=== PATIENT | female | born 1985 | race Caucasian/White ===

== ENCOUNTER 2021-10-01 14:27 | Outpatient (CLI) | payer OTHER, SELFPAY ==
[2021-10-04 12:47] LABS: Rapid Plasma Reagin (RPR) Non Reactive (Non Reactive)
== END 2021-10-01 14:28 | disposition home or self-care (01) ==
LOC: NFLDREF 14:33
PROVIDERS: Obstetrics & Gynecology; Visit Provider Obstetrics & Gynecology
DX: Z34.93 Encounter for supervision of normal pregnancy, unspecified, third trimester (principal); Z3A.28 28 weeks gestation of pregnancy
CPT/HCPCS: 86592

== ENCOUNTER 2021-10-08 08:07 | Outpatient (CLI) | payer OTHER, SELFPAY ==
[2021-10-08 08:23] LABS: Glucose Fasting Check 86 mg/dl (60-115)
[2021-10-08 12:59] LABS: Glucose GTT-Gestational 3 Hr 108 mg/dl (70-140)
[2021-10-08 12:59] LABS: Glucose 1 Hour Gest 152 mg/dl (70-180)
== END 2021-10-08 08:08 | disposition home or self-care (01) ==
LOC: NFLDREF 08:08
PROVIDERS: Visit Provider Obstetrics & Gynecology
DX: O09.523 Supervision of elderly multigravida, third trimester (principal); R73.09 Other abnormal glucose; Z3A.29 29 weeks gestation of pregnancy
CPT/HCPCS: 82951; 82952

== ENCOUNTER 2021-10-29 09:27 | Outpatient (CLI) | payer OTHER, SELFPAY ==
--- NOTE | 2021-10-29 09:45 | CRLHL7_ITS ---
For Patients: As a result of the Century Cures Act, medical imaging exams and procedure reports are released immediately into your electronic medical record. You may view this report before your referring provider. If you have questions, please contact your health care provider. INDICATION: Third trimester scan, evaluate growth. COMPARISON: 05/12/2021, 09/04/2021 TECHNIQUE: Real time borjas scale imaging of the fetus was performed. FINDINGS: Sonographic imaging demonstrates a single living intrauterine gestation. Fetus demonstrates a regular cardiac rate of 150 beats per minute. Fetus has a vertex position. The placenta lies anterior fundal. Amniotic fluid volume appears normal and there is a single deepest vertical pocket: 6.2 cm. The estimated weight is 1838gm which lies at the 41st %. On the prior OB ultrasound exam dated 09/04/2021 the estimated weight was at the 96th%. BPD 96th percentile. HC 96th percentile. AC 27th percentile. FL 27th percentile. The HC/AC ratio measures 1.17 range (0.96-1.11). IMPRESSION: Sonographic gestational age 33 weeks 0 days and sonographic due date 12/27/2021. Sonographic age 9 days ahead of the clinical age. Estimated weight 41st percentile. Abdominal circumference 27th percentile. BPD/HC both 96th percentile. Dictated by Conrad Black MD @ 10/29/2021 12:03:50 PM (Electronically Signed)
== END 2021-10-29 09:28 | disposition home or self-care (01) ==
LOC: US 09:28
PROVIDERS: Visit Provider Obstetrics & Gynecology
DX: Z34.93 Encounter for supervision of normal pregnancy, unspecified, third trimester (principal); Z3A.33 33 weeks gestation of pregnancy
CPT/HCPCS: 76816

== ENCOUNTER 2021-11-26 09:20 | Outpatient (CLI) | payer OTHER, SELFPAY ==
--- NOTE | 2021-11-26 09:15 | CRLHL7_ITS ---
For Patients: As a result of the Century Cures Act, medical imaging exams and procedure reports are released immediately into your electronic medical record. You may view this report before your referring provider. If you have questions, please contact your health care provider. INDICATION: Third trimester scan, evaluate growth. COMPARISON: 10/29/2021 TECHNIQUE: Real time borjas scale imaging of the fetus was performed. FINDINGS: Sonographic imaging demonstrates a single living intrauterine gestation. Fetus demonstrates a regular cardiac rate of 139 beats per minute. Fetus has a vertex position. The placenta lies anterior. Amniotic fluid volume appears normal and there is a single deepest vertical pocket: 6.3 cm. The estimated weight is 3204gm which lies at the 90th %. On the prior OB ultrasound exam dated 10/29/2021 the estimated weight was at the 41st%. BPD greater than 97th percentile. HC 96th percentile. AC 97th percentile. FL 29th percentile. The HC/AC ratio measures 1.01 range (0.90-1.05). IMPRESSION: Sonographic gestational age 37 weeks 5 days and sonographic due date 12/12/2021. Sonographic age 2 weeks ahead of the clinical age. Estimated weight 90th percentile. Abdominal circumference 97th percentile. Dictated by Conrad Black MD @ 11/26/2021 12:40:57 PM (Electronically Signed)
== END 2021-11-26 09:21 | disposition home or self-care (01) ==
LOC: US 09:20
PROVIDERS: Visit Provider Obstetrics & Gynecology
DX: Z34.93 Encounter for supervision of normal pregnancy, unspecified, third trimester (principal); Z3A.37 37 weeks gestation of pregnancy
CPT/HCPCS: 76816; 87081; 87653

== ENCOUNTER 2022-01-01 06:10 | Inpatient (IN) | payer OTHER, SELFPAY ==
[2022-01-01] VITALS (45 sets, daily range): BP systolic 97–144; BP diastolic 50–90; PULSE 58–115; RESP 16–20; TEMP 36.4–37.2; O2SAT 96–98; BMI 32.5
[2022-01-01] MEDS: LACTATED RINGERS 1000 ML 1,000 ML 500 ML IV (07:23)
[2022-01-01 07:57] LABS: Basophils Absolute Auto 0.01 K/uL (0.00-0.30); Basophils Percent Auto 0.1 % (0.0-3.0); Eosinophils Absolute Auto 0.05 K/uL (0.00-0.50); Eosinophils Percent Auto 0.6 % (0.0-7.0); Hematocrit 32.6 % (33.0-51.0); Hemoglobin* 11.2 gm/dL (12.0-16.0); Immature Granulocytes Abs Auto 0.04 K/uL (0.00-0.30); Lymphocytes Absolute Auto 1.94 K/uL (0.90-2.90); Lymphocytes Percent Auto 24.5 % (20-44); Mean Corpuscular HGB Conc 34 gm/dL (32-36); Mean Corpuscular Hemoglobin 30 pg (26-34); Mean Corpuscular Volume 89 fL (80-100); Monocytes Percent Auto 5.8 % (0.0-11.0); Neutrophils Absolute Auto 5.42 K/uL (1.7-7.0); Neutrophils Percent Auto 68.5 % (42.0-72.0); Platelet Count* 166 K/uL (140-440); RDW Coefficient of Variation % 13.4 % (11.5-15.5); Red Blood Count 3.68 m/uL (4.00-5.20); White Blood Count* 7.92 K/uL (4.50-11.00)
[2022-01-01 08:01] LABS: SARS PCR* Negative SARS-CoV-2 (Negative)
[2022-01-01 08:07] LABS: Slide Review Reflex No
[2022-01-01] MEDS: OXYTOCIN 30 unit/500 ML in NS 30 UNIT/500 ML BAG IVPB (08:54)
[2022-01-01] MEDS: ACETAMINOPHEN 500 MG TABLET 1000 MG PO ×2 (11:38→18:51)
[2022-01-01] MEDS: LACTATED RINGERS 1000 ML 1,000 ML 125 ML IV ×2 (11:51→13:43)
--- NOTE | 2022-01-01 13:10 | PM.OBHPLI ---
OB - H&P: HPI Labor/Induction History of Present Illness Time Seen by Provider: 08:00 Date Seen: 01/01/22 Chief complaint: Maternity Narrative: Ute Rand is a 36 year old female who presents to the center to to labor induction. She is not having regular contractions but note increased pelvic pressure. Denies any leakage of fluid or vaginal bleeding. On initial cervical exam, head is very high in the pelvis with bulging bag. Cervix is very favorable. Review of Systems Status of ROS: Reports: 10 or more systems reviewed and unremarkable except as noted in History and below Meds Home Medications and Allergies Home Medications Medication Instructions Recorded Confirmed Type PNV no.151-iron 27 mg-folic 800 cap PO 10/01/21 12/25/21 History mcg-omega3 260 yz-cec-vca-fish capsule ( Multi-DHA (with vitamin K)) foniufjado-lsiomulxmzjmc-weuxelff 2 cap PO PRN 10/01/21 12/25/21 History 50 mg-325 mg-40 mg capsule famotidine 20 mg tablet mg PO DAILY 10/01/21 12/25/21 History omeprazole magnesium 10 mg oral mg PO .as needed PRN 10/01/21 12/25/21 History suspension,delayed release valacyclovir 1 gram tablet mg PO PRN 10/01/21 12/25/21 History ferrous sulfate 143 mg (45 mg 143 mg PO ONCE 10/29/21 01/01/22 History iron) tablet,extended release Allergies Allergy/AdvReac Type Severity Reaction Status Date / Time No Known Allergies Allergy Verified 12/25/21 09:01 OB - H&P: Exam Physical Exam: Vital signs: Temp Pulse Resp BP Pulse Ox 98.4 F 58 L 20 111/52 L 98 01/01/22 12:08 01/01/22 12:07 01/01/22 12:08 01/01/22 12:07 01/01/22 07:20 Narrative: Physical exam: General: No acute distress. Comfortable in bed. Psych: Alert and oriented x3, full affect HEENT: Normocephalic, atraumatic, oropharynx benign Neck: No cervical adenopathy, no thyromegaly Abdomen: Gravid. Soft contractions palpated. no tenderness, rebound, or guarding, no masses, no hepatosplenomegaly, no hernias Lower extremities: +1 edema bilaterally Pelvic exam: SVE /bal OB - Results Labs Labs: Short CBC 01/01/22 Range/Units 06:55 WBC 7.92 (4.50-11.00) K/uL Hgb 11.2 L (12.0-16.0) gm/dL Hct 32.6 L (33.0-51.0) % Plt Count 166 (140-440) K/uL OB - Problem Based A/P Additional Plan (1) : Status: Acute Plan - Patient is feeling minimal contractions - head ballotable. Will no AROM until head is more engaged. Delivery/Labor/Induction Plan Plan: induction Induction method: per pitocin protocol
[2022-01-01] MEDS: ROPIVACAINE 0.2 % PF 10 ML INJ 20 MG EPIDURAL (13:30)
[2022-01-01] MEDS: ROPIVACAINE 0.2% 100 ml 100 ML 12 MG EPIDURAL (13:30)
[2022-01-01] MEDS: LIDOCAINE 2% (PF) 5 ML VIAL EPIDURAL (13:30)
--- NOTE | 2022-01-01 13:46 | PM.ANBPRC ---
[facility] Medical History (Updated 12/15/21 @ 14:37 by Kirk Belle, SEBASTIAN) Anemia due to acute blood loss Cough Delayed hemorrhage (2019) Normal spontaneous vaginal delivery Transfusion of blood during current hospitalization Surgical History (Updated 09/28/21 @ 10:24 by Bernarda Poe) History of colposcopy with cervical biopsy (2013) Status post dilation and curettage (02/2020) Family History (Updated 09/28/21 @ 10:24 by Bernarda Poe) Paternal Grandmother Diabetes Social History (Updated 09/28/21 @ 10:25 by Bernarda Poe) Narrative: Exercises 3 to 4 times per week- HIIT, strength , [employer] [place], 1 child Non-smoker Social drinker- 5/week Smoking Status: Never smoker Meds Home Medications and Allergies Home Medications Medication Instructions Recorded Confirmed Type PNV no.151-iron 27 mg-folic 800 cap PO 10/01/21 12/25/21 History mcg-omega3 260 rk-wrh-rah-fish capsule ( Multi-DHA (with vitamin K)) ahisrqlssb-nlcmqassuygxa-oubqhcqi 2 cap PO PRN 10/01/21 12/25/21 History 50 mg-325 mg-40 mg capsule famotidine 20 mg tablet mg PO DAILY 10/01/21 12/25/21 History omeprazole magnesium 10 mg oral mg PO .as needed PRN 10/01/21 12/25/21 History suspension,delayed release valacyclovir 1 gram tablet mg PO PRN 10/01/21 12/25/21 History ferrous sulfate 143 mg (45 mg 143 mg PO ONCE 10/29/21 01/01/22 History iron) tablet,extended release Allergies Allergy/AdvReac Type Severity Reaction Status Date / Time No Known Allergies Allergy Verified 12/25/21 09:01 Results Labs Labs: Laboratory Results - last 24 hr 01/01/22 01/01/22 01/01/22 06:30 06:55 06:55 WBC 7.92 RBC 3.68 L Hgb 11.2 L Hct 32.6 L MCV 89 MCH 30 MCHC 34 RDW Coeff of Karley 13.4 Plt Count 166 Neut % (Auto) 68.5 Lymph % (Auto) 24.5 [place] % (Auto) 5.8 Eos % (Auto) 0.6 Baso % (Auto) 0.1 Neut # (Auto) 5.42 Lymph # (Auto) 1.94 [place] # (Auto) 0.50 Eos # (Auto) 0.05 Baso # (Auto) 0.01 Abs Immat Gran (auto) 0.04 SARS-CoV-2 (PCR) Negative SARS-CoV-2 Blood Type O Positive Antibody Screen NEGATIVE Vital Signs Vital Signs: Last Vital Signs Temp 98.4 F 01/01/22 12:08 Pulse 77 01/01/22 13:46 Resp 20 01/01/22 12:08 BP 144/71 H 01/01/22 13:46 Pulse Ox 98 01/01/22 07:20 Weight: 97.159 kg Height: 172.72 cm Anesthesia Procedures Epidural Insertion Patient Location: OB Start Time: 13:15 Stop Time: 13:47 Start Date: 01/01/22 Stop Date: 01/01/22 Reason for Block: procedure for pain Patient Position: sitting Performed By: Timmy Guerin Preanesthetic Checklist: IV checked, risks and benefits discussed, surgical consent, monitors and equipment checked, pre-op evaluation, timeout performed and anesthesia consent Prep: chlorhexidine gluconate Monitoring: blood pressure monitoring, continuous pulse oximetry and heart rate Approach: midline Vertebral Space: lumbar (1-5) Needle Type: Tuohy needle Injection Technique: continuous catheter Needle gauge: 17 Needle Length (cm): 10 cm Needle Insertion Depth (cm): 7 Catheter Gauge: 19 Catheter Type: multi-orifice Catheter at skin depth (cm): 13 Test Dose Result: negative and lidocaine 1.5% with epinephrine 1 to 200,000
[2022-01-01] MEDS: METHYLERGONOVINE MALEATE 0.2 MG/ML INJ IM (15:35)
[2022-01-01] MEDS: miSOPROStoL 800 MCG/4 TABLET PR (15:38)
--- NOTE | 2022-01-01 15:53 | PM.OBPRCVD ---
Procedure Delivery date: 01/01/22 Procedure Done: Global Procedure Details: Ute is a 36 year-old G 2 P 1001 now 2001 admitted on 01/01/2022 at 40 Weeks, 6 Days gestation for induction of labor. SROM occurred at 14 20 on 01/01/2022 with clear fluid. Labor Analgesia: Epidural Pitocin: Yes Labor onset: 01/01 at 14 20. Complete: 01/01 at 1428. Pushin/21 at 1438. heart tones during second stage were: Category 2 with intermittent variables. At 15 28 a viable male infant delivered in vertex OA presentation over intact perineum via spontaneous vaginal delivery. The infant was placed on maternal abdomen. Cord was clamped and cut after a 30 second delay. Nose and mouth were bulb suctioned. weight 4160 g. 9 at 1 minute and 9 at 5 minutes. Shoulder dystocia: No. Nuchal cord: X1. Loose and reduced. Placenta did not delivered spontaneously with gentle cord traction and with maternal effort after 30 minutes. I did a gentle manual sweep of the uterus to remove the placenta intact. Transabdominal ultrasound performed showing thin homogenous endometrial strip alone the entirety of the uterus in sagittal and transverse view. She had increased vaginal bleeding after placental removal and was given 0.2 mg of Methergine and 800 mcg of Cytotec rectally with excellent hemostasis. Laceration(s): Periclitoral. Repaired using 3-0 chromic suture in a/the running manner. Blood loss: 400 mL. Blood loss measurement type: Estimated Sponge and needles counts are correct. Specimen: Placenta Mother and infant were stable after delivery. Infant's name: Jake Johnston The patient is planning on breast feeding.
[2022-01-01] MEDS: IBUPROFEN 600 MG TABLET PO (18:07)
[2022-01-01] MEDS: CEFAZOLIN 2 GM in 0.9 % SODIUM CHLORIDE Mini-bag 100 ML IVPB (18:49)
[2022-01-02] MEDS: IBUPROFEN 600 MG TABLET PO ×3 (00:11→19:35)
[2022-01-02 06:00] VITALS: BP 123/79; PULSE 71; RESP 16; TEMP 36.7; O2SAT 96
[2022-01-02 07:22] LABS: Hemoglobin* 10.8 gm/dL (12.0-16.0)
--- NOTE | 2022-01-02 10:09 | PM.OBDSVD1 ---
DS: Providers Provider Date Seen: 01/02/22 Date of admission: 01/01/22 06:10 Primary care physician: Not a Local Provider Admitting Clinician: Shilpi Zuleta MD Attending Physician on discharge: Danette Rivera MD DS: Diagnosis Discharge Diagnosis (1) Spontaneous vaginal delivery: Status: Acute Exam Narrative: Exam Narrative: VITAL SIGNS: As noted above. GENERAL APPEARANCE: Alert, cooperative female in no acute distress. MOOD & AFFECT: Normal. ABDOMEN: Soft, non-distended and nontender. Uterus is well contracted at umbilicus. : Normal external female anatomy. Pad with mild normal lochia. EXTREMITIES: Bilateral pitting edema +1. Well perfused. Nontender. Patient had elevated blood pressures that were NOT 4 hours apart. care reviewed and no history of elevated blood pressures antepartum either. Const: Vital Signs, click to edit/add: Vital Signs - 24 hr 01/01/22 10:52 01/01/22 12:07 01/01/22 12:07 Temperature Pulse Rate 75 58 L Pulse Rate [Blood Pressure Cuff] Respiratory Rate Blood Pressure 129/90 H 111/52 L Blood Pressure [Ri ght Arm] Pulse Oximetry Oxygen Delivery Me thod 01/01/22 13:37 01/01/22 13:40 01/01/22 13:40 Temperature Pulse Rate 72 80 Pulse Rate [Blood Pressure Cuff] Respiratory Rate Blood Pressure 143/72 H 142/74 H Blood Pressure [Ri ght Arm] Pulse Oximetry Oxygen Delivery Me thod 01/01/22 13:41 01/01/22 13:43 01/01/22 13:46 Temperature Pulse Rate 78 88 Pulse Rate [Blood Pressure Cuff] Respiratory Rate Blood Pressure 143/72 H 142/71 H 144/71 H Blood Pressure [Ri ght Arm] Pulse Oximetry Oxygen Delivery Me thod 01/01/22 13:46 01/01/22 13:48 01/01/22 13:48 Temperature Pulse Rate 77 71 Pulse Rate [Blood Pressure Cuff] Respiratory Rate Blood Pressure 134/63 Blood Pressure [Ri ght Arm] Pulse Oximetry Oxygen Delivery Me thod 01/01/22 13:50 01/01/22 13:50 01/01/22 13:55 Temperature Pulse Rate 77 84 Pulse Rate [Blood Pressure Cuff] Respiratory Rate Blood Pressure 122/64 110/58 L Blood Pressure [Ri ght Arm] Pulse Oximetry Oxygen Delivery Me thod 01/01/22 14:00 01/01/22 14:06 01/01/22 14:11 Temperature Pulse Rate 90 78 70 Pulse Rate [Blood Pressure Cuff] Respiratory Rate Blood Pressure 97/56 L 103/55 L 101/52 L Blood Pressure [Ri ght Arm] Pulse Oximetry Oxygen Delivery Me thod 01/01/22 14:15 01/01/22 14:15 01/01/22 14:22 Temperature Pulse Rate 71 84 Pulse Rate [Blood Pressure Cuff] Respiratory Rate Blood Pressure 97/50 L 106/53 L Blood Pressure [Ri ght Arm] Pulse Oximetry Oxygen Delivery Me thod 01/01/22 14:25 01/01/22 14:32 01/01/22 14:32 Temperature Pulse Rate 94 88 Pulse Rate [Blood Pressure Cuff] Respiratory Rate Blood Pressure 121/55 L 115/55 L Blood Pressure [Ri ght Arm] Pulse Oximetry Oxygen Delivery Me thod 01/01/22 14:36 01/01/22 14:36 01/01/22 14:41 Temperature Pulse Rate 81 Pulse Rate [Blood Pressure Cuff] Respiratory Rate Blood Pressure 105/53 L 125/60 Blood Pressure [Ri ght Arm] Pulse Oximetry Oxygen Delivery Me thod 01/01/22 14:41 01/01/22 14:45 01/01/22 14:56 Temperature Pulse Rate 90 100 115 H Pulse Rate [Blood Pressure Cuff] Respiratory Rate Blood Pressure 118/60 133/60 Blood Pressure [Ri ght Arm] Pulse Oximetry Oxygen Delivery Me thod 01/01/22 15:02 01/01/22 15:02 01/01/22 15:05 Temperature Pulse Rate 113 H 98 Pulse Rate [Blood Pressure Cuff] Respiratory Rate Blood Pressure 132/81 127/63 Blood Pressure [Ri ght Arm] Pulse Oximetry Oxygen Delivery Me thod 01/01/22 15:11 01/01/22 15:11 01/01/22 15:16 Temperature Pulse Rate 86 Pulse Rate [Blood Pressure Cuff] Respiratory Rate Blood Pressure 119/56 L 115/53 L Blood Pressure [Ri ght Arm] Pulse Oximetry Oxygen Delivery Me thod 01/01/22 15:16 01/01/22 15:20 01/01/22 15:25 Temperature Pulse Rate 79 75 81 Pulse Rate [Blood Pressure Cuff] Respiratory Rate Blood Pressure 114/56 L 107/53 L Blood Pressure [Ri ght Arm] Pulse Oximetry Oxygen Delivery Me thod 01/01/22 15:41 01/01/22 15:45 01/01/22 15:51 Temperature Pulse Rate 76 72 Pulse Rate [Blood Pressure Cuff] Respiratory Rate Blood Pressure 124/73 115/59 L 122/59 L Blood Pressure [Ri ght Arm] Pulse Oximetry Oxygen Delivery Me thod 01/01/22 15:51 01/01/22 15:56 01/01/22 15:56 Temperature Pulse Rate 77 71 Pulse Rate [Blood Pressure Cuff] Respiratory Rate Blood Pressure 120/60 Blood Pressure [Ri ght Arm] Pulse Oximetry Oxygen Delivery Me thod 01/01/22 16:14 01/01/22 16:29 01/01/22 16:44 Temperature Pulse Rate 75 71 63 Pulse Rate [Blood Pressure Cuff] Respiratory Rate Blood Pressure 128/69 134/62 144/65 H Blood Pressure [Ri ght Arm] Pulse Oximetry Oxygen Delivery Me thod 01/01/22 16:59 01/01/22 17:48 01/01/22 12:08 Temperature 98.4 F Pulse Rate 67 76 Pulse Rate [Blood Pressure Cuff] Respiratory Rate 20 Blood Pressure 133/57 L 130/60 Blood Pressure [Ri ght Arm] Pulse Oximetry Oxygen Delivery Me thod 01/01/22 15:45 01/01/22 17:00 01/01/22 21:01 Temperature 98.6 F 98.4 F 99.0 F Pulse Rate Pulse Rate [Blood Pressure Cuff] 82 Respiratory Rate 16 Blood Pressure Blood Pressure [Ri ght Arm] 135/82 Pulse Oximetry 96 Oxygen Delivery Me thod Room Air 01/01/22 23:25 01/02/22 06:00 Temperature 98.5 F 98.0 F Pulse Rate Pulse Rate [Blood Pressure Cuff] 75 71 Respiratory Rate 16 16 Blood Pressure Blood Pressure [Ri ght Arm] 130/83 123/79 Pulse Oximetry 96 96 Oxygen Delivery Me thod Room Air Room Air OB - DS: Summary Hospital Course Hospital Course: The patient is a 36 year old G 2 P 1001 at 40 6/7 weeks gestation that was admitted to the Center on 01/01/22 for IOL due to near post term dates. She had an complicated vaginal delivery. Placental cord avulsion, eventually spontaneous delivery of placenta. She delivered a viable male . She is breast feeding. the patient has done well. Peripartum Data delivery method: Vaginal Laceration description: Periurethral - 1st Degree Episiotomy description: None Procedures: Bedside US after delivery of placenta identified a thin and homogenous endometrium. No concern no retained placenta. complications: none Gender: Male Discharge Plan: Home Status at Discharge Functional status at discharge: independent ambulation Overall status at discharge: patient is progressing back to baseline Time Spent with Patient Time attestation: Total time spent providing and/or coordinating discharge services: Time spent: Less than 30 minutes Discharge Plan Discharge Disposition: Home, Self-Care Date of Admission: 01/01/22 06:10 Attending Provider on Discharge: Danette Rivera Primary Care Provider: Provider,Not a Local Condition: Stable Anticipated Discharge Date/Time: 01/02/22 16:15 Discharge Medications: New acetaminophen 500 mg Tablet 1,000 mg PO Q6H PRNQty: 30 0RF ibuprofen 600 mg Tablet 600 mg PO Q6H PRNQty: 30 0RF Continued ferrous sulfate 143 mg (45 mg iron) tablet extended release 143 mg PO ONCE omeprazole magnesium 10 mg susp,delayed release for recon PO .as needed PRN famotidine 20 mg tablet PO DAILY bllruuttmn-eyvbkqyifapkw-ywhv 50-325-40 mg capsule 2 cap PO PRN Rx Instructions: MAX 6/DAY Multi-DHA(with vit K) 27 mg iron-800 mcg-260 mg capsule PO Discontinued valacyclovir 1 gram tablet PO PRN Rx Instructions: 2 tab po x1 , then 2 tab po x 1 in 12 h, use PRN Discharge Orders: Discharge Order (Routine); Ordered 01/02/22 Ordered By: Danette Rivera Patient Education: OB Vaginal/Breast Feeding Activity Level: Activity as Tolerated Activity Detail: Nothing vaginally for 6 weeks Discharge Diet: Regular Follow Up Appointments: Provider,Not a Local [Primary Care Provider] - Forms: [employer] Info Instructions Discharge Comments: Follow up in [facility] clinics in 2 weeks for mood and follow up. Follow up in [facility] clinics in 6 weeks for regular check.
[2022-01-02] MEDS: ACETAMINOPHEN 500 MG TABLET 1000 MG PO ×2 (11:15→23:13)
[2022-01-02 11:17] VITALS: BP 122/72; PULSE 76; RESP 16; TEMP 36.6; O2SAT 96
[2022-01-02 15:13] VITALS: BP 139/79; PULSE 81; RESP 18; TEMP 36.8; O2SAT 97
[2022-01-02 19:29] VITALS: BP 126/75; PULSE 85; RESP 18; TEMP 36.9; O2SAT 97
[2022-01-02] MEDS: DOCUSATE SODIUM 100 MG CAPSULE PO (19:35)
[2022-01-02 23:53] VITALS: BP 120/73; PULSE 68; RESP 18; TEMP 36.7; O2SAT 97
[2022-01-03 08:00] VITALS: BP 131/82; PULSE 68; RESP 18; TEMP 36.7
--- NOTE | 2022-01-03 08:14 | P.DS_ITS ---
DS: Providers Provider Date Seen: 01/03/22 Date of admission: 01/01/22 06:10 Primary care physician: Not a Local Provider Admitting Clinician: Shilpi Zuleta MD Attending Physician on discharge: Tejal Beal CNM Date of Discharge: 01/03/22 DS: Diagnosis Discharge Diagnosis (1) care and examination immediately after delivery: Status: Acute (2) Spontaneous vaginal delivery: Status: Acute (3) Lactating mother: Status: Acute Exam Const: Vital Signs, click to edit/add: Vital Signs - 24 hr 01/02/22 11:17 01/02/22 15:13 01/02/22 19:29 Temperature 97.9 F 98.3 F 98.4 F Pulse Rate [Blood Pressure Cuff] 76 81 85 Respiratory Rate 16 18 18 Blood Pressure [Ri ght Arm] 122/72 139/79 126/75 Pulse Oximetry 96 97 97 Oxygen Delivery Me thod Room Air Room Air Room Air 01/02/22 23:53 Temperature 98.1 F Pulse Rate [Blood Pressure Cuff] 68 Respiratory Rate 18 Blood Pressure [Ri ght Arm] 120/73 Pulse Oximetry 97 Oxygen Delivery Me thod Room Air Documenting provider has reviewed patient's vital signs: yes Common normals: no apparent distress, oriented x3, healthy appearing and alert HENMT: Common normals: normocephalic Head and scalp: normocephalic Eye: Common normals: PERRL Pupil: PERRL Neck & C-Spine: Common normals: full ROM and supple Chest: Common normals: inspection of chest normal Resp: Common normals: normal respiratory effort and clear to auscultation bilaterally Auscultation: clear to auscultation bilaterally Cardio: Common normals: regular rate and regular rhythm Rate: regular rate Rhythm: regular rhythm GI: Common normals: soft to palpation Palpation: soft : OB/external & speculum: Yes perineal/vaginal laceration Laceration: periurethral (well approximated) Uterus: U/2 Lochia: scant and small Back & Pelvis: Common normals: thoracic and lumbar spine normal to inspection Extremity: Common normals: normal to inspection and full ROM Neuro: Common normals: oriented x3 Sensorium/orientation: alert Speech: speech normal Psych: Common normals: mental status grossly normal, thought process normal, speech normal and activity/motor behavior normal Speech: normal speech Thought process: normal thought process Skin: Common normals: no rashes or lesions noted General skin exam: no rashes or lesions noted OB - DS: Summary Hospital Course Hospital Course: Ute is a 36 year old G 2 P 2 at 41 0/7 weeks gestation that was admitted to the Center on 01/01/22 for induction of labor for post term. She had a vaginal delivery by placental cord avulsion, eventually spontaneous delivery of placenta. She delivered a viable male . She is breast feeding and reports it is going well. the patient has done well. She is voiding, passing flatus, and ambulating independently. She plans the mini pill for contraception at 6 weeks. Discharge was initially planned for yesterday, but due to concerns that baby had not yet voided, they stayed one more night. Peripartum Data Infant delivery method: Vaginal Laceration description: Periurethral - 1st Degree complications: none Infant Gender: Male Discharge Plan: Home Status at Discharge Functional status at discharge: independent ambulation Overall status at discharge: patient is progressing back to baseline Time Spent with Patient Time attestation: Total time spent providing and/or coordinating discharge services: Discharge Plan Discharge Disposition: Home, Self-Care Date of Admission: 01/01/22 06:10 Attending Provider on Discharge: Tejal Beal Primary Care Provider: Provider,Not a Local Condition: Stable Anticipated Discharge Date/Time: 01/02/22 16:15 Discharge Medications: New acetaminophen 500 mg Tablet 1,000 mg PO Q6H PRNQty: 30 0RF ibuprofen 600 mg Tablet 600 mg PO Q6H PRNQty: 30 0RF Continued ferrous sulfate 143 mg (45 mg iron) tablet extended release 143 mg PO ONCE omeprazole magnesium 10 mg susp,delayed release for recon PO .as needed PRN famotidine 20 mg tablet PO DAILY cpfclpbvud-pxjqewhfbawxy-pktv 50-325-40 mg capsule 2 cap PO PRN Rx Instructions: MAX 6/DAY Multi-DHA(with vit K) 27 mg iron-800 mcg-260 mg capsule PO Discontinued valacyclovir 1 gram tablet PO PRN Rx Instructions: 2 tab po x1 , then 2 tab po x 1 in 12 h, use PRN Discharge Orders: Discharge Order (Routine); Ordered 01/03/22 Ordered By: Danette Rivera Patient Education: OB Vaginal/Breast Feeding Additional Instructions: Follow up in [facility] clinics in 2 weeks for mood and follow up. Follow up in [facility] clinics in 6 weeks for regular check. Activity Level: Activity as Tolerated Activity Detail: Nothing vaginally for 6 weeks Discharge Diet: Regular Follow Up Appointments: [facility] [Provider Group] (Follow up in [facility] clinics in 2 weeks for mood and follow up. Follow up in [facility] clinics in 6 weeks for regular check.) Forms: [employer] Info Instructions
[2022-01-03] MEDS: IBUPROFEN 600 MG TABLET PO (08:31)
[2022-01-03] MEDS: DOCUSATE SODIUM 100 MG CAPSULE PO (08:31)
== END 2022-01-03 09:30 | disposition home or self-care (01) | DRG 807 ==
PROVIDERS: Obstetrics & Gynecology; Admitting Provider Obstetrics & Gynecology; Visit Provider Obstetrics & Gynecology
DX: O71.82 Other specified trauma to perineum and vulva (principal); Z37.0 Single live birth; Z3A.40 40 weeks gestation of pregnancy
CPT/HCPCS: 1967; 36415; 76815; 85018; 85025; 86850; 86900; 86901; 87635; A9270; J0690; J2210; J2795; J7120

== ENCOUNTER 2022-02-16 13:36 | Outpatient (CLI) | payer OTHER, SELFPAY ==
--- NOTE | 2022-02-16 14:00 | CRLHL7_ITS ---
For Patients: As a result of the Century Cures Act, medical imaging exams and procedure reports are released immediately into your electronic medical record. You may view this report before your referring provider. If you have questions, please contact your health care provider. INDICATION: Continued bleeding 6 weeks TECHNIQUE: Ultrasound pelvis transabdominal and transvaginal for better assessment or to better visualize the endometrium. Real time sonographic images with Spectral and color Doppler imaging of the ovaries were obtained. COMPARISON: Nine FINDINGS: Uterus: 8.7 centimeter x 3.8 centimeter x 5.2 centimeter normal echotexture of the myometrium. No masses. Endometrium: Transvaginal imaging was performed to better evaluate the endometrium. Millimeters in thickness. In region is hyperechoic and slightly irregular in the region of the mid and fundal regions. Right ovary: 4.1 centimeter x 2.2 centimeter x 1.8 centimeter. No ovarian or adnexal masses. Normal arterial and venous blood flow. Left ovary: 2.0 centimeter x 1.9 centimeter x 1.5 centimeter no ovarian or adnexal masses. Normal arterial and venous blood flow. Cul-de-sac: No significant free fluid. IMPRESSION: Hyperechoic irregular endometrium at the level of the fundus and mid uterus. Endometrium measures 8 millimeters in thickness. Dictated by Conrad Youssef MD @ 02/16/2022 5:30:14 PM (Electronically Signed)
== END 2022-02-16 13:37 | disposition home or self-care (01) ==
LOC: US 13:36
PROVIDERS: Visit Provider Physician Assistant
DX: O72.1 Other immediate postpartum hemorrhage (principal)
CPT/HCPCS: 76830; 76856

== ENCOUNTER 2022-03-03 10:39 | Outpatient (CLI) | payer OTHER, SELFPAY ==
--- NOTE | 2022-03-03 10:45 | CRLHL7_ITS ---
For Patients: As a result of the Century Cures Act, medical imaging exams and procedure reports are released immediately into your electronic medical record. You may view this report before your referring provider. If you have questions, please contact your health care provider. INDICATION: FOLLOW UP BLEEDING - HEAVIER BLEEDING STARTED THIS WEEK COMPARISON: 02/16/2022 TECHNIQUE: 2D borjas scale and color Doppler images were acquired of the pelvis using a transabdominal and transvaginal approach. FINDINGS: Sonographic images demonstrate a normal size and smooth outer contour of the uterus. Uterus measures 7.5 cm in length by 3.9 cm in AP diameter by 5.0 cm in transverse dimension. The myometrium has a normal uniform echotexture. The endometrial lining appears heterogeneous with multiple foci of increased echogenicity again noted and measures 9 mm in composite thickness. The right ovary measures 3.1 x 1.7 x 1.9 cm in size and the left ovary measures 3.0 x 1.6 x 1.7 cm. The ovaries demonstrate normal arterial and venous blood flow on color Doppler analysis. There are no suspicious fluid collections within the cul-de-sac. IMPRESSION: Similar morphology and thickness of the endometrium with thickness measuring 9 millimeters and multiple hyperechoic foci representing calcifications. No endometrial fluid or uterine fibroid. Normal ovaries. Dictated by Conrad Black MD @ 03/03/2022 11:38:48 AM (Electronically Signed)
== END 2022-03-03 10:40 | disposition home or self-care (01) ==
LOC: US 10:40
PROVIDERS: Visit Provider Physician Assistant
DX: O72.1 Other immediate postpartum hemorrhage (principal); R93.89 Abnormal findings on diagnostic imaging of other specified body structures
CPT/HCPCS: 76830; 76856

== ENCOUNTER 2022-03-10 09:16 | Outpatient (CLI) | payer OTHER, SELFPAY ==
[2022-03-10 14:11] LABS: Cholesterol* 207 mg/dL (90-199); HDL Cholesterol* 45 mg/dL (>=50); LDL Cholesterol Calculated 131 mg/dL (<100); Triglycerides* 156 mg/dL (40-149)
== END 2022-03-10 09:17 | disposition home or self-care (01) ==
LOC: FRMREF 09:16
PROVIDERS: Obstetrics & Gynecology; Visit Provider Physician Assistant
DX: N93.9 Abnormal uterine and vaginal bleeding, unspecified (principal)
CPT/HCPCS: 80061

== ENCOUNTER 2023-07-19 10:52 | Outpatient (CLI) | payer OTHER, SELFPAY ==
--- NOTE | 2023-07-19 11:00 | US_ITS ---
Patient: ADRIÁN SOOD Facility:?[facility] Patient ID:?[id number] Site Patient ID:?[id number]. Site :?[id number] Study:?US-OB Pelvis OB TV-07/19/2023 11:42:42 AM Ordering Physician:ELHAM ROBERSON Final Report: INDICATION: Check viability and dates TECHNIQUE: Transvaginal scanning was performed to optimally evaluate the IUP and adnexa. Ovarian blood flow was evaluated with color-flow and pulsed Doppler. COMPARISON: Length. FINDINGS: There is a living IUP with gestational age of 9 weeks 3 days by LMP and 9 weeks by today`s crown-rump length. EDC based on today`s crown-rump length is 02/21/2024. The embryonic heart rate is measured at 176 beats per minute. The placenta is not yet formed. A subchorionic hemorrhage measuring 1.9 x 1.8 x 0.4 cm is noted. The ovaries are normal in size and shape. The right ovary measures 3.8 x 1.8 x 1.4 cm and the left 3.2 x 1.9 x 1.4 cm. Ovarian blood flow is demonstrated with color-flow and pulsed Doppler. No adnexal mass or free fluid is apparent. IMPRESSION: 1. Living IUP with gestational age of 9 weeks by today`s crown-rump length and EDC of 02/21/2024. 2. 1.9 x 1.8 x 0.4 cm subchorionic hemorrhage. Dictated by Jagdish Orozco MD @ 07/20/2023 9:36:52 AM Signed by:?Jagdish Orozco MD @07/20/2023 9:36:52 AM (Electronic Signature)
== END 2023-07-19 10:53 | disposition home or self-care (01) ==
LOC: US 10:53
PROVIDERS: PCP Nurse Practitioner Family; Visit Provider Physician Assistant
DX: Z34.91 Encounter for supervision of normal pregnancy, unspecified, first trimester (principal); O20.9 Hemorrhage in early pregnancy, unspecified; Z3A.09 9 weeks gestation of pregnancy
CPT/HCPCS: 76817; 86703; 86706; 86803; 86850; 86900; 86901; 87086; 87340; 87491; 87591

== ENCOUNTER 2023-07-19 12:46 | Outpatient (CLI) | payer OTHER, SELFPAY ==
[2023-07-19 19:19] LABS: Chlamydia DNA Amplified* NOT DETECTED (No Detected); GC DNA Amplified* NOT DETECTED (No Detected)
== END 2023-07-19 12:47 | disposition home or self-care (01) ==
PROVIDERS: PCP Nurse Practitioner Family; Visit Provider Physician Assistant
DX: O09.522 Supervision of elderly multigravida, second trimester (principal); Z3A.13 13 weeks gestation of pregnancy
CPT/HCPCS: 86592; 86703; 86704; 86706; 86762; 86787; 86803; 86850; 86900; 86901; 87086; 87340; 87491; 87522; 87591

== ENCOUNTER 2023-11-01 08:10 | Outpatient (CLI) | payer OTHER, SELFPAY ==
--- NOTE | 2023-11-01 08:15 | CRLHL7_ITS ---
For Patients: As a result of the Century Cures Act, medical imaging exams and procedure reports are released immediately into your electronic medical record. You may view this report before your referring provider. If you have questions, please contact your health care provider. INDICATION: OB f/u spine images only COMPARISON: Outside study 09/29/2023 TECHNIQUE: Real-time borjas-scale imaging of the pelvis was performed. FINDINGS: Prominent placental velez again noted although not mentioned in the prior report. This measures 5.4 x 2.4 x 4.7 cm. heart rate 144 beats per minute. Cervix is closed and measures 4.2 cm. Normal spine. Normal nose, lips and four-chamber heart. IMPRESSION: Normal spine. Dictated by Conrad Black MD @ 11/01/2023 10:27:44 AM (Electronically Signed)
== END 2023-11-01 08:11 | disposition home or self-care (01) ==
LOC: US 08:11
PROVIDERS: PCP Nurse Practitioner Family; Visit Provider Obstetrics & Gynecology
DX: Z34.90 Encounter for supervision of normal pregnancy, unspecified, unspecified trimester (principal)
CPT/HCPCS: 76816

== ENCOUNTER 2023-11-24 14:23 | Outpatient (CLI) | payer OTHER, SELFPAY ==
--- NOTE | 2023-11-24 14:18 | CRLHL7_ITS ---
For Patients: As a result of the Cures Act, medical imaging exams and procedure reports are released immediately into your electronic medical record. You may view this report before your referring provider. If you have questions, please contact your health care provider. INDICATION: Fall. COMPARISON: 11/01/2023 TECHNIQUE: Grayscale pelvic ultrasound via a transabdominal approach. FINDINGS: number: 1 Position: Breech. Placental Position: Posterior. Amniotic fluid: DVP 6.7cm. AGUSTIN is 16.0 cm. heart rate: 142bpm. Circumscribed crescentic mixed echotexture avascular finding measuring 8.1 x 2.5 x 4.9 cm in transverse, AP and craniocaudad dimensions, respectively. This finding was also present on the recent prior exam dated 11/01/2023 (23 days prior) and measured 4.7 x 2.4 x 5.4 cm on that study. While this may represent a venous Garcia, the possibility of a pre placental hematoma is raised. In the aspect of the placenta there is a separate oval circumscribed hypoechoic finding measuring 1.7 cm (image 270), comparatively simple in terms of its internal echotexture compared to the finding described above, consistent with a small placental Garcia. IMPRESSION: Circumscribed crescentic mixed echotexture avascular finding described above. Differential diagnostic considerations include a hematoma or venous garcia. The heterogeneous internal echotexture the finding is suspicious for a hematoma. The finding was present on the recent prior study of 11/01/2023, which introduces some doubt as to an acute placental abruption. The finding is slightly larger in transverse dimension, although this difference may be technical in nature. Close clinical follow-up is recommended. Discussed directly with the nurse for the ordering provider, SEBASTIAN Tavares, at 3:53 p.m. WELDER/INSTALLER. Dictated by Leo Guerrero MD @ 11/24/2023 4:01:42 PM (Electronically Signed)
[2023-11-24 14:49] VITALS: BP 119/65; PULSE 67
[2023-11-24 14:57] LABS: Amnisure Rom* Negative
--- NOTE | 2023-11-24 17:37 | P.OBO_ITS ---
OB Outpatient HPI History of Present Illness Date Seen: 11/24/23 History of Present Illness: 37 year old at 27 5/7 weeks weeks gestation by LMP , NAKUL 02/18/2024 , presents for evaluation after a fall at home. Patient was standing over a stool and this slipped and she fell in a straddle position and hit her vulva and pelvis. Patient states that baby has been moving well, she has not felt any abdominal tightening, no vaginal bleeding. She did notice some watery like discharge that she feels was most likely urine. She does complain of swelling of her vulva. Baby moving naturally: Yes Bleeding: No Contractions: No Leaking fluid: No Discharge: No Heartburn: No Back pain: No Meds Home Medications and Allergies Home Medications ?Medication ?Instructions ?Recorded ?Confirmed ?Type docosahexaenoic acid 200 mg mg PO 07/19/23 11/01/23 History capsule ( DHA) omeprazole 20 mg capsule,delayed 20 mg PO QDAY 09/20/23 11/01/23 History release Allergies Allergy/AdvReac Type Severity Reaction Status Date / Time No Known Allergies Allergy Verified 11/01/23 09:08 [facility] Medical History (Updated 11/24/23 @ 17:58 by Danette Rivera MD) Spontaneous vaginal delivery ?O80 - Encounter for full-term uncomplicated delivery (ICD-10) Abnormal cervical Papanicolaou smear ?R87.619 - Unspecified abnormal cytological findings in specimens from cervix uteri (ICD-10) Transfusion of blood during current hospitalization Normal spontaneous vaginal delivery ?O80 - Encounter for full-term uncomplicated delivery (ICD-10) Delayed hemorrhage (2019) ?O72.2 - Delayed and secondary hemorrhage (ICD-10) Anemia due to acute blood loss ?D62 - Acute posthemorrhagic anemia (ICD-10) Surgical History Status post dilation and curettage (02/2020) ?Z98.890 - Other specified postprocedural states (ICD-10) History of colposcopy with cervical biopsy (2013) ?Z98.890 - Other specified postprocedural states (ICD-10) Family History Paternal Grandmother Diabetes Social History Narrative: Occupation: [employer]. Marital status: . Anabaptism/cultural needs: no. Chemical or radiation exposure: no. Pre- tobacco use: no. Pre- alcohol use: 1-2/week. Current tobacco use: no. Current alcohol use: no. Recreational drug use: no. Dietary restrictions: no. Blood transfusion acceptable in an emergency: yes. PSYCHOSOCIAL HISTORY: History of depression or currently depressed: no. Current or past physical, emotional, or sexual mistreatment: no. Problems that will make it hard to make it to appointments: no. What is your current living situation?: I presently have a place to live Problems where you live: no known problems In the past 12 months, utilities in danger of being shut off: no In past 12 months, lack of transportation kept you from medical appts, meetings, work, or getting things needed for daily living: no In the past 12 mos, have been you worried that your food would run out before you had money to buy more?: never true In the past 12 mos, the food you bought just didn't last and you didn't have money to buy more?: never true Smoking Status: Never smoker How often does anyone, including family, friends and others, physically hurt you : never How often does anyone, including family, friends and others, insult or talk down to you: never How often does anyone, including family, friends and others, threaten you with harm: never How often does anyone, including family, friends and others, scream or curse at you: never Little interest or pleasure in doing things: not at all Feeling down, depressed, or hopeless: not at all History History 3 Elective abortions 0 Para 2 Spontaneous abortions 0 Hx # Term Pregnancies 2 Ectopic pregnancies 0 Hx # Pregnancies 0 Multiple births 0 Number of Living Children 2 Past Pregnancies Del. Date GA/Weeks Outcome Route wt Inf Gender Labor Lgth Anesthesia Location Provider Compli 11/27/19 41 live - full term vaginal delivery 3.856 kg Female 19hrs epidural [place] 01/01/22 40 live - full term vaginal delivery 4.167 kg Male 6hrs epidural [place] Delivery Date: 11/27/19 Last Updated by: Prisca Mckeon MD Retained placenta requiring 2 D&C procedures OB - H&P: Exam Physical Exam Vital signs: Pulse BP 67 119/65 11/24/23 14:49 11/24/23 14:49 Narrative: GENERAL APPEARANCE:? normal affect, alert, no distress MOOD:? appropriate ABDOMEN:?gravid, non tender Genitalia: Right labia majora swollen about double the size of the left side, bruising is noted on the skin of the right labia majora, right perineum and a bit down towards the right butt cheek. Slightly tender to palpation, but not tense, red, no fluctuant lesions etc... just swelling. EXTREMITIES:? normal and no edema NST: 140bpm/adequate for gestational age/ no uterine contractions AmniSure negative Imaging: Circumscribed crescentic mixed echotexture avascular finding measuring 8.1 x 2.5 x 4.9 cm in transverse, AP and craniocaudad dimensions, respectively. This finding was also present on the recent prior exam dated 11/01/2023 (23 days prior) and measured 4.7 x 2.4 x 5.4 cm on that study. While this may represent a venous Garcia, the possibility of a pre placental hematoma is raised. In the aspect of the placenta there is a separate oval circumscribed hypoechoic finding measuring 1.7 cm (image 270), comparatively simple in terms of its internal echotexture compared to the finding described above, consistent with a small placental Garcia. Labs Labs Laboratory Tests 11/24/23 Range/Units 14:39 Membrane Rupture Negative Assessment and Plan Assessment and plan (1) Placental abnormality: Status: Acute (2) Obstetric trauma: Status: Acute Plan 1. OB trauma: Complete at least 4 hours of monitoring. Ice on and off to vulvar area, monitor clinically. If reassuring she can be discharged home with return precautions. 2. Imaging findings: After discussion with patient of changes of possible placental garcia I would recommend re evaluation by MFM. Patient is in agreement but [facility], I have placed a referral order today.
[2023-11-24 17:53] VITALS: BP 122/69; PULSE 72
--- NOTE | 2023-11-24 18:41 | PC.OBNST ---
NST Note NST Note Start: 11/24/23 14:18 Freq: ONCE Status: Active Protocol: Document 11/24/23 18:39 PORT (Rec: 11/24/23 18:41 PORT Desktop) NST Note 2 Para (# of births) 1 EDC 02/18/24 Gestational Age In Weeks & Days 27 Weeks & 5 Days Patient Presented with Complaint(s) of Observation after an injury Other Complaints Pt was standing on a chair to hang something and the chair tipped. The back of the chair struck the patient between the legs on her perineum, and the patient noticed a small leak of fluids soon after. Reactive Yes Appropriate for Gestational Age Yes SEBASTIAN Vincent RN Date 11/24/23 Reactive Yes Appropriate for Gestational Age Yes SEBASTIAN Rivera MD Date 11/24/23 OB NST charge Yes Complete NST Note via Write Note Yes The provider's electronic signature indicates the NST is reactive/appropriate for gestational age. *Note to provider: If an addendum is required, open the patient's chart and click on the note under the Nurse/Allied Health tab.
== END 2023-11-24 18:40 | disposition home or self-care (01) ==
LOC: OB OUT 14:24 → OB 14:25
PROVIDERS: PCP Nurse Practitioner Family; Visit Provider Obstetrics & Gynecology
DX: O43.102 Malformation of placenta, unspecified, second trimester (principal); O71.9 Obstetric trauma, unspecified; Z3A.27 27 weeks gestation of pregnancy
CPT/HCPCS: 59025; 76815; 84112; G0463

== ENCOUNTER 2023-12-07 08:45 | Outpatient (CLI) | payer OTHER, SELFPAY | END 2023-12-07 08:46 | disposition home or self-care (01) | LOC: NFLDREF 12-09 11:54 | PROVIDERS: PCP Nurse Practitioner Family; Referring Provider Nurse Practitioner Family; Visit Provider Obstetrics & Gynecology | DX: Z34.90 Encounter for supervision of normal pregnancy, unspecified, unspecified trimester (principal) | CPT/HCPCS: 86592 ==

== ENCOUNTER 2024-01-04 11:59 | Outpatient (CLI) | payer OTHER, SELFPAY ==
--- OUTSIDE RECORDS SUMMARY | 2024-01-04 12:01 | XMS_ITS | Encounter Summary ---
Author Organization [facility] Address [address] [place] [address] Care Team Providers Care Stress Test Technician Name Role Phone None Reported, Pcp Primary Care Provider Unavail able Encounter Details Date Type Department Care Team (Late st Contact Info) Description 08/29/2023 Clinical Communication Department of Obstetrics and Gynecology in [place], [place] [address] [place] [address] Prescheduling, Provider Social History Tobacco Use Types Packs/Day Years Used Date Smoking Tobacco: Never Smokeless Tobacco: Never Alcohol Use Standard Drinks/Week Comments Yes 0 (1 standard drink = 0.6 oz pur e alcohol) WEEKLY [facility] Utilities Answer Date Recorded In the past 12 months has [employer], gas, oil, or water dough threatened to shut off services in your home? No 09/26/2023 Humiliation, Afraid, Rape, and Kick questionnair e Answer Date Recorded Within the last year, have y ou been afraid of your partner or ex-partner? No 07/11/2021 Within the last year, have y ou been humiliated or emotionally abused in other ways by your partner or ex-partner? No Within the last year, have y ou been kicked, hit, slapped, or otherwise physically hurt by your partner or ex-partner? No 07/11/2021 Within the last year, have y ou been raped or forced to have any kind of sexual activity by your partner or ex-partner? No 07/11/2021 Social Connection and Isolation Panel [NHANES] A nswer Date Recorded In a typical week, how many times do you talk on the phone with family, friends, or neighbors? Once a week 07/12/19 22 How often do you get togethe r with friends or relatives? Once a week 07/11/2021 How often do you attend chur ch or yarsanism services? 1 to 4 times per year 07/11/2021 Do you belong to any clubs o r organizations such as gnosticist groups, unions, fraternal or athletic groups, or school groups? No 07/11/2021 How often do you attend meet ings of the clubs or organizations you belong to? Never 07/11/2021 Are you , , di vorced, , never , or living with a partner? 07/11/2021 AUDIT-C Answer Date Recorded Q1: How often do you have a drink containing alc ohol? Never 07/11/2021 Average Number of Drinks Not on file 022 Frequency of Binge Drinking Not on file 06/14 Overall Financial Resource Strain (CARDIA) Answe r Date Recorded How hard is it for you to pa y for the very basics like food, housing, medical care, and heating? Not hard at all 07/11/2021 [facility] of Occupat ional Health - Occupational Stress Questionnaire Answer Date Recorded Do you feel stress - tense, restless, nervous, or anxious, or unable to sleep at night because your mind is troubled all the time - these days? To some extent 07/11/2021 Exercise Vital Sign Answer Date Recorde d On average, how many days pe r week do you engage in moderate to strenuous exercise (like a brisk walk)? 3 days 09/26/2023 On average, how many minutes do you engage in exercise at this level? 30 min 09/26/2023 Hunger Vital Sign Answer Date Recorded Within the past 12 months, y ou worried that your food would run out before you got the money to buy more. Never true 09/26/19 24 Within the past 12 months, t he food you bought just didn't last and you didn't have money to get more. Never true 09/26/2023 PRAPARE - Transportation Answer Date Re corded In the past 12 months, has l ack of transportation kept you from medical appointments or from getting medications? No 09/11 In the past 12 months, has l ack of transportation kept you from meetings, work, or from getting things needed for daily living? No 09/26/2023 Nutrition Answer Date Recorded On average, how many serving s of fruits and vegetables do you eat per day (serving size is equal to 1 cup or approximately the size of a tennis ball)? 3-5 09/26/2023 Dental Answer Date Recorded Dental: Regular Dentist Yes 07/12/19 Employment Answer Date Recorded Employment status Employed and actively working without restrictions 09/26/2023 Housing Stability Answer Date Recorded What is your living situation today? I have a [facility] place to live 09/26/2023 Education Answer Date Recorded What is the highest level of school you have completed or the highest degree you have received? 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 - 08/30/2023 1:58 PM CDT LMTCB 08/29 documented in this encounter Plan of Treatment Not on file documented as of this encounter Visit Diagnoses Not on filedocumented in this encounter Care Teams Stress Test Technician Relationship Specialty Start Date End Date None Reported, Pcp PCP - General Family Medicine 10/09/22 documented as of this encounter
--- OUTSIDE RECORDS SUMMARY | 2024-01-04 12:01 | XMS_ITS | Referral Summary ---
Author Organization [facility] Address [address] [place] [address] Care Team Providers Care Design Leader Name Role Phone None Reported, Pcp Primary Care Provider Unavail able Source Comments Patient records contain information from all sites at [facility]. For routine questions regarding patient records, call [phone] during business hours, M-F 8:00 AM - 5:00 PM Central Time. Record requests for emergency care only can be directed to [phone] at any time.[facility] Encounters Date Type Department Care Team Description 10/06/2023 Orders Only Department of Obstetrics and Gynecology in [place], [place] [address] [place] [address] Sarah Kumar R.N. Examination Other Normal Second Trimester (HCC) (Primary Dx) from Last 3 Months Allergies No known active allergies Medications 25/iron fum/folic/dha (-1 ORAL) Daily Active valACYclovir (VALTREX) 1000 mg tablet Twice A Day as needed 03/03/2021 Active metoclopramide (REGLAN) 10 mg tablet Take 10 mg by mouth. 07/19/2023 Active omeprazole (PriLOSEC) [address] capsule Take 20 mg by mouth daily before morning meal. 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 08/30/2023 Hyperlipidemia 08/30/2023 Abnormal Pap Smear Cervix 08/30/2023 Screening For Venereal Disease 08/17/2021 Other Specified Abnormal Immunological Findings In Serum 08/17/2021 Estimated Date of Delivery Comme nts Yes 02/18/2024 Based on last me nstrual period of 05/14/2023 Immunizations Name Administration Dates Next Due Tdap 09/13/2019,10/26/2011,10/02/2008 influenza vaccine quad (FLUZ ONE/FLUARIX) (6 months and older)(PF) 12/19/2020,01/11/2019,01/03/2015 Social History Tobacco Use Types Packs/Day Years Used Date Smoking Tobacco: Never Smokeless Tobacco: Never Tobacco Cessation:Counseling Given: Not Answered Alcohol Use Standard Drinks/Week Comments Not Currently 0 (1 standard drink = 0.6 oz pur e alcohol) WEEKLY [facility] Utilities Answer Date Recorded In the past 12 months has e [employer], gas, oil, or water [employer] threatened to shut off services in your [...] friends, or neighbors? Once a week 07/12/19 How often do you get togethe r with friends or relatives? Once a week 07/11/2021 How often do you attend chur ch or worship services? 1 to 4 times per year 07/11/2021 Do you belong to any clubs o r organizations such as jew groups, unions, fraternal or athletic groups, or [...] and heating? Not hard at all 07/11/2021 [facility] of Occupat ional Health - Occupational Stress [...] Date Recorded Dental: Regular Dentist Yes 07/12/19 22 Employment Answer Date Recorded Employment status Employed and actively working without restrictions 09/26/2023 Housing Stability Answer Date Recorded What is your living situation today? I have a [facility] place to live 09/26/2023 Education Answer Date Recorded What is the highest level of school you have completed or the highest degree you have received? 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 Gender Identity Female 07/11/2021 7:48 PM CDT Sexual Orientation Straight 07/11/2021 7: 48 PM CDT Last Filed Vital Signs Vital Sign Reading Time Taken Comments Blood Pressure 128/79 09/29/2023 10:07 AM CDT Pulse 83 09/29/2023 10:07 AM CDT Temperature 37 ??C (98.6 ??F) 09/29/2023 10:07 AM CDT Respiratory Rate 16 10/09/2022 10:25 AM CDT Oxygen Saturation 100% 09/29/2023 10:07 AM CDT Inhaled Oxygen Concentration - - Weight 93.3 kg (205 lb 11 oz) 09/29/2023 10:07 A M CDT Height - - Body Mass Index - - Plan of Treatment Not on file Procedures Procedure Name Priority Date/Time Associated Diagnosis Comments HIV-1/HIV-2 AB RAPID PT SOURCE, B Routine 02/09/2016 9:53 PM LOG CARRIER OPERATOR from Last 3 Months or Most Recently Relevant to Health Maintenance Results * HIV-1/HIV-2 Ab Rapid (02/09/2016 9:53 PM LOG CARRIER OPERATOR) HIV-1/HIV-2 Ab Rapid, P Negative Negative [facility] 02/09/2016 9:53 PM LOG CARRIER OPERATOR 02/09/2016 9:53 PM LOG CARRIER OPERATOR us Martín Woods M.D., M.P.H. LAB MICROBIOLOGY - BLOOD ORDERABLES Final Result [facility] [address] [place] [phone], [place] from Last 3 Months or Most Recently Relevant to Health Maintenance Insurance [employer] [place] [employer] Care Teams Design Leader Relationship Specialty Start Date End Date None Reported, Pcp PCP - General Family Medicine 10/09/22
--- OUTSIDE RECORDS SUMMARY | 2024-01-04 12:01 | XMS_ITS | Clinical Summary ---
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; Bilobate placenta, third trimester 12/07/2023 10:15 AM CDT - 12/07/2023 11:59 PM CDT Hospital Encounter [facility] Medicine [facility] [address] [facility] [address] [place] [phone] Danette Sage MD Sabol, Bethany, MD related condition, antepartum Discharge Disposition: Home or Self Care 12/07/2023 Travel 11/29/2023 PRE VISIT [facility] Medicine [facility] [address] [facility] [address] [place] [address] Paulina Guardado RN Ultrasound (L2- Malformation of placenta, AMA) 11/25/[address] [facility] Information Management [address] [place] [address] [address] [place] [address] Scan, Non-Provider 11/25/[address] [facility] Maternal Medicine [facility] [address] [place] [address] Danette Sage MD related condition, antepartum (Primary Dx) 11/25/[address] [facility] Maternal Medicine [facility] [address] [place] [address] Danette Sage MD related condition, antepartum (Primary Dx) 11/24/[address] [facility] Health Information Management [address] [facility] [address] [place] [address] Scan, Non-Provider from Last 3 Months Social History Tobacco Use Types Packs/Day Years Used Date Smoking Tobacco: Never Assessed Adolescent Education Answer Date Record ed Getting School Help Needed Not on file 12/12 Estimated Date of Delivery Comme nts Yes 02/21/2024 Based on Ultraso und Sex and Gender Information Value Date Recorded Sex Assigned at Not on file Legal Sex Female 3:28 AM [employer]LE [employer] Gender Identity Not on file Sexual Orientation Not on file Plan of Treatment Health Maintenance Due Date Last Done Comments ADVANCE CARE PLANNING 1985 ANNUAL REVIEW OF HM ORDERS 1986 GLUCOSE 1986 HIV SCREENING 2001 HEPATITIS C SCREENING 2004 YEARLY PREVENTIVE VISIT 11/23/2019 11/22/2018, 10/21 PAP 11/22/2021 11/22/2018 PHQ-2 (once per calendar year) 2023 MATERNAL SCREENING DISCUSSION 07/26/2023 OBGCT (OB) 11/01/2023 COVID-19 Vaccine (3 - season) 2023 02/06/2021, 01/16/2021 INFLUENZA VACCINE (#1) 2023 , 02/08/2020, 01/11/2019, Additional history exists RSV VACCINE (1 - Risk 1-dose series) 12/27/2023 DTAP/TDAP/TD IMMUNIZATION (13 - Td or Tdap) 09/12/2029 09/13/2019, 10/26/2011, 10/02/2008, Additional history exists HEPATITIS B IMMUNIZATION Completed 999, 02/11/1998, 01/14/1998, Additional history exists HPV IMMUNIZATION Completed 01/10/2007, , 12/19/2006, Additional history exists MENINGITIS IMMUNIZATION Aged Out No l onger eligible based on patient's age to complete this topic Pneumococcal Vaccine: Pediatrics (0 to 5 Years) and At-Risk Patients (6 to 64 Years) Aged Out No longer eligible based on patient's age to complete this topic RSV MONOCLONAL ANTIBODY Aged Out No l onger eligible based on patient's age to complete this topic Procedures Procedure Name Priority Date/Time Associated Diagnosis Comments [facility] COMPREHENSIVE SINGLE Routine 12/07/2023 11:13 AM CDT related condition, antepartum from Last 3 Months Results * [facility] Comprehensive Single (12/07/2023 11:13 AM CDT) Anatomical Region Laterality Modality Ultrasound 12/07/2023 10:2 0 AM CDT Impressions 12/07/2023 2:51 PM CDT IMPRESSION ----- 1. Reyes at 29w 1d gestational age. 2. No anomalies commonly detected by ultrasound were identified in the detailed anatomic survey within the limits of ultrasound. 3. Growth parameters and estimated weight were consistent with gestational age predicted by assigned NAUKL. 4. The amniotic fluid volume appeared normal. 5. The placenta is posterior/right lateral placenta and bi-lobed placenta with a velamentous cord insertion into a thin membraneous portion between the two lobes. There is a venous velez on the surface of the placenta. Narrative 12/07/2023 2:51 PM CDT ?Comprehensive ----- Pat. Name: ADRIÁN RAND ? Study Date: ??12/07/2023 10:20am Pat. NO: ??[id number] ?Referring ??MD: DANETTE BEATTY Site: ? [employer] Helper: Sherry Pimentel RDMS : ??1985 ?Age: ?? 37 ----- INDICATION ----- Placental abnormality on outside ultrasound. AMA, low risk NIPT. METHOD ----- Transabdominal ultrasound examination. View: Suboptimal view: limited by late gestational age ----- Reyes . Number of fetuses: 1 DATING ----- ? Date ?Details ?Gest. age ?NAKUL LMP ?05/14/2023 ?Cycle: irregular cycle ?29 w + 4 d ? 02/18/2024 Previous U/S ?07/19/2023 ?GA, GA 9 w + 0 d ? 29 w + 1 d ? 02/21/2024 U/S ? 12/07/2023 ? based upon AC, BPD, Femur, HC ?30 w + 6 d ? 02/09/2024 Assigned dating ?based on ultrasound (GA), selected on 12/07/2023 ?29 w + 1 d ? 02/21/2024 GENERAL EVALUATION ----- Cardiac activity present. FHR 136 bpm. movements: present. Presentation: cephalic Placenta: Posterior/right lateral placenta. There is a bi-lobed placenta with a velamentous cord insertion into a thin membraneous portion between the two lobes. Umbilical cord: 3 vessel cord Amniotic fluid: Amount of AF: normal. MVP 6.1 cm BIOMETRY ----- BPD ? 75.1 ?mm ? 30w 1d ?Hadlock OFD ? 100.3 ?mm ? 29w 4d ?Nicolaides HC ? 279.9 ?mm ? 30w 5d ? Hadlock Cerebellum tr ?33.9 ?mm ? 29w 3d ? Nicolaides AC ? 277.8 ?mm ? 31w 6d ?98% ?Hadlock Femur ?58.9 ?mm ? 30w 5d ? Hadlock Humerus ? 52.1 ? mm ?30w 2d ?Alex Weight Calculation: EFW ?1,726 ?g ?96% ? Hadlock EFW (lb,oz) ?3 lb 13 ?oz EFW by ? Hadlock ([id number]) Head / Face / Neck Biometry: Road Cleaner ?5.8 ? mm CM ? 6.0 ? mm Nasal bone ? 8.9 ?mm ANATOMY ----- The following structures appear normal: Head / Neck ? Cranium. Head size. Head shape. Lateral ventricles. Choroid plexus. Midline falx. Cavum septi pellucidi. Cerebellum. Cisterna magna. ? Parenchyma. Thalami. Vermis. ? Neck. Face ? Lips. Profile. Nose. Maxilla. Mandible. Orbits. Lens. Heart / Thorax ?4-chamber view. RVOT view. LVOT view. 3-vessel view. 2-jqvkch-akzqqno view. Situs. Aortic arch view. Bicaval view. Ductal arch view. Superior ? vena cava. Inferior vena cava. Cardiac position. Cardiac size. Cardiac rhythm. ? Right lung. Left lung. Diaphragm. Abdomen ? Abdom. wall. Cord insertion. Stomach. Kidneys. Bladder. Liver. Bowel. Genitals. Spine ?Cervical spine. Thoracic spine. Lumbar spine. Sacral spine. Extremities / Skeleton ?Arms. Right arm. Right hand. Left arm. Left hand. Legs. Right leg. Right foot. Left leg. Left foot. MATERNAL STRUCTURES ----- Cervix ?Visualized ? Appearance: Appears Closed ? Approach - Transabdominal: Cervical length 46.7 mm Right Ovary ?Visualized Left Ovary ?Visualized RECOMMENDATION ----- Thank-you for referring your patient for a comprehensive ultrasound. I discussed the findings on today's ultrasound with the patient. I reviewed the limitations of ultrasound both in detecting aneuploidy and structural abnormalities. Ultrasound can routinely detect 80-90% of structural abnormalities. She had low risk cell free DNA for genetic screening this . We reviewed that on ultrasound today the cord insertion appears velamentous. We discussed that velamentous cord insertions have been associated with an increased risk of growth restriction and a very small increased risk of stillbirth at the end of and therefore we recommend monthly ultrasound assessment of growth in addition to weekly surveillance starting at 36 weeks. I presume these follow-ups will be done in your office. Additionally, Ms. Rand reports irregular cycles prior to conception ranging from 25-38 days after coming off of OCPs. We would therefore recommend using her early ultrasound to date the (NAKUL 02/21/24). She just had an 1 hour which was 135. Her clinic utilizes a 140 cut-off to trigger a 3 hour glucose test. We discussed the different thresholds that can be used (130, 135, 140) and discussed the risks false positive/false negative results with each approach. Estimated weight is at the 96th% today, reviewed that this could be just constitutional (prior babies were 8lb 8oz and 9lb 3oz) or as a result of slightly increased insulin resistance. Reviewed growth will be monitored as above every month. Return to primary provider for continued care. If you have questions regarding today's evaluation or if we can be of further service, please contact the [facility]. anomalies may be present but not detected I spent a total of 15 minutes on the date of this encounter including preparing to see the patient (reviewing medical records/tests), counseling and discussing the plan of care, documenting the visit in the electronic medical record, and communicating with other health career coordinator and/or care coordination. Please see note for details. Procedure Note Karuna Mata MD - 12/07/2023 Comprehensive ----- Pat. Name: ADRIÁN RAND Study Date: 12/07/2023 10:20am Pat. NO: [id number] Referring MD: DANETTE BEATTY Site: [employer] Helper: Sherry Pimentel RDMS : 1985 Age: 37 ----- INDICATION ----- Placental abnormality on outside ultrasound. AMA, low risk NIPT. METHOD ----- Transabdominal ultrasound examination. View: Suboptimal view: limited bylate gestational age ----- Reyes . Number of fetuses: 1 DATING ----- DateDetailsGest. age NAKUL LMP 05/14/2023ycle: irregular cycle29 w + 4 d 02/18/2024 Previous U/S 07/19/2023 GA, GA9 w + 0 d29 w + 1 d 02/21/2024 U/S 12/07/2023ased upon AC, BPD, Femur, HC30 w + 6 d 02/09/2024 Assigned dating based on ultrasound (GA), selected on12/07/2023 29w + 1 d 02/21/2024 GENERAL EVALUATION ----- Cardiac activity present. FHR 136 bpm. movements: present.Presentation: cephalic Placenta: Posterior/right lateral placenta. There is a bi-lobed placentawith a velamentous cord insertion into a thin membraneous portion betweenthe two lobes. Umbilical cord: 3 vessel cord Amniotic fluid: Amount of AF: normal. MVP 6.1 cm BIOMETRY ----- BPD 75.1mm 30w 1dHadlock OFD 100.3mm 29w 4dNicolaides HC 279.9mm 30w 5dHadlock Cerebellum tr 33.9mm 29w 3dNicolaides AC 277.8mm 31w 6d 98%Hadlock Femur 58.9mm 30w 5dHadlock Humerus 52.1mm 30w 2dJeanty Weight Calculation: EFW 1,726g 96%Hadlock EFW (lb,oz) 3 lb 13oz EFW by Hadlock([id number]) Head / Face / Neck Biometry: Road Cleaner 5.8mm CM 6.0mm Nasal bone 8.9mm ANATOMY ----- The following structures appear normal: Head / Neck Cranium. Head size. Head shape.Lateral ventricles. Choroid plexus. Midline falx. Cavum septi pellucidi.Cerebellum. Cisterna magna. Parenchyma. Thalami. Vermis. Neck. Face Lips. Profile. Nose. Maxilla.Mandible. Orbits. Lens. Heart / Thorax 4-chamber view. RVOT view. LVOT view.3-vessel view. 1-cetudx-cpemwnx view. Situs. Aortic arch view. Bicavalview. Ductal arch view. Superior vena cava. Inferior vena cava.Cardiac position. Cardiac size. Cardiac rhythm. Right lung. Left lung.Diaphragm. Abdomen Abdom. wall. Cord insertion. Stomach.Kidneys. Bladder. Liver. Bowel. Genitals. Spine Cervical spine. Thoracic spine.Lumbar spine. Sacral spine. Extremities / Skeleton Arms. Right arm. Right hand. Left arm.Left hand. Legs. Right leg. Right foot. Left leg. Left foot. MATERNAL STRUCTURES ----- Cervix Visualized Appearance: Appears Closed Approach - Transabdominal:Cervical length 46.7 mm Right Ovary Visualized Left Ovary Visualized RECOMMENDATION ----- Thank-you for referring your patient for a comprehensive ultrasound. I discussed the findings on today's ultrasound with the patient. Ireviewed the limitations of ultrasound both in detecting aneuploidy andstructural abnormalities. Ultrasound can routinely detect 80-90% of structural abnormalities. She had low riskcell free DNA for genetic screening this . We reviewed that on ultrasound today the cord insertion appearsvelamentous. We discussed that velamentous cord insertions have beenassociated with an increased risk of growth restriction and a very small increased risk of stillbirthat the end of and therefore we recommend monthly ultrasoundassessment of growth in addition to weekly surveillance starting at 36 weeks. I presumethese follow-ups will be done in your office. Additionally, Ms. Rand reports irregular cycles prior to conceptionranging from 25-38 days after coming off of OCPs. We would thereforerecommend using her early ultrasound to date the (NAKUL 02/21/24). She just had an 1 hourwhich was 135. Her clinic utilizes a 140 cut-off to trigger a 3 hourglucose test. We discussed the different thresholds that can be used (130, 135, 140) and discussed therisks false positive/false negative results with each approach. Estimatedfetal weight is at the 96th% today, reviewed that this could be just constitutional (prior babieswere 8lb 8oz and 9lb 3oz) or as a result of slightly increased insulinresistance. Reviewed growth will be monitored as above every month. Return to primary provider for continued care. If you have questions regarding today's evaluation or if we can be offurther service, please contact the [facility]. anomalies may be present but not detected I spent a total of 15 minutes on the date of this encounter includingpreparing to see the patient (reviewing medical records/tests), counselingand discussing the plan of care, documenting the visit in the electronic medical record, andcommunicating with other health career coordinator and/or carecoordination. Please see note for details. IMPRESSION ----- 1. Reyes at 29w 1d gestational age. 2. No anomalies commonly detected by ultrasound were identified inthe detailed anatomic survey within the limits of prenatalultrasound. 3. Growth parameters and estimated weight were consistent withgestational age predicted by assigned NAKUL. 4. The amniotic fluid volume appeared normal. 5. The placenta is posterior/right lateral placenta and bi-lobed placentawith a velamentous cord insertion into a thin membraneous portion betweenthe two lobes. There is a venous velez on the surface of the placenta. us Danette Beatty MD [facility] ORDERABLE S Edited Result - Final from Last 3 Months Insurance [employer] Care Teams Director Service Relationship Specialty Start Date End Date No Ref-Primary, Physician PCP - General 11/25/23
--- OUTSIDE RECORDS SUMMARY | 2024-01-04 12:01 | XMS_ITS | Encounter Summary ---
Author Organization [facility] Address [address] [place] [id number] Care Team Providers Care Tufting Machine Fixer Name Role Phone None Reported, Pcp Primary Care Provider Unavail able Reason for Visit * Reason Comments Routine Visit MFM * Appointment Request (Routine) - Closed Specialty Diagnoses / Procedures Referred By Contcammy t Referred To Contact Obstetrics and Gynecology Diagnoses Elderly Multigravida Greater Than 35 Year Old (HCC) Danette Rivera M.D. [address] [place] [phone] Phone: tel: fax: Referral ID Status Reason Start Date Expiration Date Visits Re quested Visits Authorized [id number] Closed 08/26/2023 08/25/2024 1 1 Encounter Details Date Type Department Care Team (Latest Contact Info) Description 09/29/2023 10:00 AM CDT Routine Department of Obstetrics and Gynecology in [place], [place] [address] [place] [address] Elizabeth Alatorre M.B.B.S. [address] [place] [address] Examination Other Normal Second Trimester (HCC) (Primary Dx) Social History Tobacco Use Types Packs/Day Years Used Date Smoking Tobacco: Never Smokeless Tobacco: Never Alcohol Use Standard Drinks/Week Comments Not Currently 0 (1 standard drink = 0.6 oz pur e alcohol) WEEKLY [facility] Utilities Answer Date Recorded In the past 12 months has [employer] gas, oil, or water company threatened to shut off services in your [...] 07/11/2021 How often do you attend chur or mandaen services? 1 to 4 times per year 07/11/2021 Do you belong to any clubs o r organizations such as sikhism groups, unions, fraternal or athletic groups, or [...] and heating? Not hard at all 07/11/2021 [facility] [place] of Occupat ional Health - Occupational Stress [...] your living situation today? 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 - 09/29/2023 10:00 AM CDT SUBJECTIVE CHIEF COMPLAINT / REASON FOR VISIT Ute Rand is a 37 y.o. . Patient's last menstrual period was 05/14/2023. Her EstimatedDate of Delivery: 02/18/24 determined by LMP consistent with 19 week ultrasound. Gestational age is:19w5d. She is being referred by Dr. Rivera in [place] for advanced maternal age. 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 No Known Problems Maternal Grandfather Arthritis Paternal Grandmother Diabetes mellitus type II Paternal Grandmother Alzheimer's disease Paternal Grandmother No Known Problems Paternal Grandfather Social History Socioeconomic History Marital status: Spouse name: Toni Highest education level: Bachelor's degree (e.g., BA, AB, BS) Tobacco Use Smoking status: Never Smokeless tobacco: Never Vaping Use Vaping status: never used Substance and Sexual Activity Alcohol use: Not Currently Comment: WEEKLY Drug use: Never Sexual activity: Yes control/protection: Pill Social Determinants of Health Food Insecurity: No Food Insecurity (09/26/2023) Hunger Vital Sign Worried About Running Out of Food in the Last Year: Never true Ran Out of Food in the Last Year: Never true Transportation Needs: No Transportation Needs (09/26/2023) PRAPARE - Transportation Lack of Transportation (Medical): No Lack of Transportation (Non-Medical): No Physical Activity: Insufficiently Active (09/26/2023) Exercise Vital Sign Days of Exercise per Week: 3 days Minutes of Exercise per Session: 30 min Intimate Partner Violence: Not At Risk (07/11/2021) Humiliation, Afraid, Rape, and Kick questionnaire Fear of Current or Ex-Partner: No Emotionally Abused: No Physically Abused: No Sexually Abused: No Housing Stability: Low Risk (09/26/2023) Housing Stability Housing: Living Situation: I have a steady place to live No Known Allergies REVIEW OF SYSTEMS Noncontributory OBJECTIVE VITAL SIGNS There were no vitals filed for this visit. DIAGNOSTICS I have reviewed the OB ultrasound(s). ASSESSMENT / PLAN Ute Rand is a 37 years old lady , at 19 weeks and 5 days of . Referred to [facility] due to advanced maternal age. Her medical history is also significant for migraine and her advanced level ultrasound today was reported as normal apart from identification of intracardiac echogenic focus. Discussion: During our visit today we addressed the following issues. AMA Advanced maternal age: Today we discussed issues related to advancing age in including increased risk for gestational diabetes, hypertension and aneuploidy. - We would recommend early gestational diabetes screening with HgbA1c and if normal perform screening at the usual time frame 26-28 weeks. - Additionally she is at a slight increased risk for hypertensive disease of and would recommend close observation of her blood pressures in . Low dose Asprin can be considered however her only risk factor is AMA. - Regarding the aneuploidy risk, which is primarily for T21, T18 and T13 we discussed both screening options as well as diagnostic options. She has an NIPT that was reported as low risk and we reassured her this is an adequate screening test. Intracardiac echogenic focus: An intracardiac echogenic focus is 1 of the soft markers for aneuploidy however recent studies did not find an increased risk of aneuploidy in these pregnancies. The [facility] recommend noninvasive testing to screen for aneuploidy and no further evaluation in the setting of normal NIPT. Migraine Ute Rand has mild migraine the is associated with and working prolonged shift. Sheresponds well to Tylenol and Reglan. Her migraine episodes are not frequent and she does not need preventative therapy. I have explained to Ute Rand that most women with migraine headache improve during , particularly those women with a history of menstrual- associated migraine. Headache frequency tendsto decline in the 2nd and 3rd trimesters. In terms of treatment in , first-line for acute migraine/headache includes adequate hydration and avoidance of triggers. Acetaminophen is first- line pain reliever, combination medication such as Fioricet can also be used though caution should be taken due to potential for rebound headache following prolonged use. Antiemetic medication such as Reglan, Phenergan, Compazine can be used as adjuncts. Triptan medication has limited data in though sumatriptan has not been shown to increase risk for delivery or anomalies but has been associated with increased risk for earlypregnancy loss and thus I would not recommend this medication in the first trimester. Preventative therapy: First-line preventative therapy includes beta blockers (propranolol) which is generally safe and has a marginally increased risk for growth restriction. The calcium channel kriss Verapamil can alsobe used. Should beta kriss therapy be indicated would recommend serial growth ultrasounds beginning at 32 weeks. Amitriptyline is considered a 2nd line preventative agent and can be used if first-line agents are contraindicated/failed. Reviewed approach to headache/migraine treatment in and safety of medication use. Dependent on triggers, for many women, migraines improve during particularly if hormone related. Summary of Recommendations: In addition to routine OB care we recommend the following: Recommend early screening for GDM by 1 h glucose 50 and to be repeated at 28 weeks if normal. ASA 81 mg can be considered however patient only risk factor in AMA. She is also overweight with BMI of 29.9 ( which is less than 30) the cut limit of classifying her as obese. We recommend discussion with the primary provider for shared decision-making. Increase PO hydration. Avoid headache triggers, eat regular meals (avoid hypoglycemia), accupuncture may be of benefit, massage and dry-needling (if suspected MSK/tension underlying cause), avoid working long shifts more than 12 hours. Acetaminophen is first line. Reglan and Phenergan can be tried. Fioricet as needed for breaking acute headache. (this medication contains acetaminophen, avoid overdose when administering with other acetaminophen products). limited use of triptans is likely safe at this point in the .This can used if necessary. Unclear prophylaxis benefit with daily magnesium supplementation. I personally spent 30 minutes in care of the patient today. Time includes both non face to face andface to face patient care. Bel Falcno.S. Maternal Medicine documented in this encounter Plan of Treatment Scheduled Orders Name Type Priority Associated Diagnoses Orde r Schedule US OB Follow-up and or Growth [facility] RAD - Routine (most inpatients and all outpatients) Examination Other Normal Second Trimester (HCC) Expected: 10/13/2023, Expires: 12/29/2024 documented as of this encounter Visit Diagnoses Diagnosis Examination Other Normal Second Trimester (HCC)- Primary documented in this encounter Care Teams Tufting Machine Fixer Relationship Specialty Start Date End Date None Reported, Pcp PCP - General Family Medicine 10/09/22 documented as of this encounter
--- OUTSIDE RECORDS SUMMARY | 2024-01-04 12:01 | XMS_ITS | Encounter Summary ---
Author Organization [facility] Address [address] [place] [address] Care Team Providers Care Digital Marketing Strategist Name Role Phone None Reported, Pcp Primary Care Provider Unavail able Reason for Referral * Specialty Diagnoses / Procedures Referred By Contcammy t Referred To Contact Diagnoses Examination Other Normal Second Trimester (HCC) [facility] [address] [place] [address] Phone: tel: [facility] Referral ID Status Reason Start Date Expiration Date Visits Re quested Visits Authorized Encounter Details Date Type Department Care Team ([facility] st Contact Info) Description 09/29/2023 Orders Only Department of Obstetrics and Gynecology in [place], [place] [address] [place] [phone] Kimmie Muir R.N. [address] [place] [phone] Examination Other Normal Second Trimester (HCC) (Primary Dx) Social History Tobacco Use Types Packs/Day Years Used Date Smoking Tobacco: Never Smokeless Tobacco: Never Alcohol Use Standard Drinks/Week Comments Not Currently 0 (1 standard drink = 0.6 oz pur e alcohol) WEEKLY [facility] Utilities Answer Date Recorded In the past 12 months has th e electric, gas, oil, or water company threatened to [...] often do you attend chur ch or quaker services? 1 to 4 times per year 07/11/2021 Do you belong to any clubs o r organizations such as religious groups, unions, fraternal or athletic groups, or [...] and heating? Not hard at all 07/11/2021 [facility] [place] of Occupat ional Health - Occupational Stress [...] your living situation today? 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 Gender Identity Female 07/11/2021 7:48 PM CDT Sexual Orientation Straight 07/11/2021 7: 48 PM CDT documented as of this encounter Plan of Treatment Scheduled Referrals Name Type Priority Associated Diagnoses Order Schedule Obstetrics and Gynecology - MFM education visit (clinic) Outpatient Referral Routine Examination Other Normal Second Trimester (HCC) Expected: 09/29/2023, Expires: 09/27/2024 documented as of this encounter Visit Diagnoses Diagnosis Examination Other Normal Second Trimester (HCC)- Primary documented in this encounter Care Teams Digital Marketing Strategist Relationship Specialty Start Date End Date None Reported, Pcp PCP - General Family Medicine 10/09/22 documented as of this encounter
--- OUTSIDE RECORDS SUMMARY | 2024-01-04 12:01 | XMS_ITS ---
Author Organization [facility] Address [address] [place] [address] Care Team Providers Care Cane Packer Name Role Phone Unavailable Unavailable Unavailable Surgery Details Not on file Complications Check Surgery Details section. Procedure Estimated Blood Loss Check Surgery Details section. Procedure Findings Check Surgery Details section. Procedure Specimens Taken Check Surgery Details section.
--- OUTSIDE RECORDS SUMMARY | 2024-01-04 12:01 | XMS_ITS | Clinical Summary ---
Author Organization [facility] Address [address] [place] [address] Care Team Providers Care Medical Record Librarians Teacher Name Role Phone None Reported, Pcp Primary Care Provider Unavail able Source Comments Patient records contain information from all sites at [facility]. For routine questions regarding patient records, call [phone] during business hours, M-F 8:00 AM - 5:00 PM Central Time. Record requests for emergency care only can be directed to [phone] at any time.[facility] Allergies No known active allergies Medications 25/iron [...] on last me nstrual period of 05/14/2023 Encounters Date Type Department Care Team Description 10/06/2023 Orders Only Department of Obstetrics and Gynecology in [place], [place] [address] [place] [address] Sarah Kumar R.N. Examination Other Normal Second Trimester (HCC) (Primary Dx) from Last 3 Months Immunizations Name Administration Dates Next Due Tdap 09/13/2019,10/26/2011,10/02/2008 influenza vaccine quad (FLUZ ONE/FLUARIX) (6 months and older)(PF) 12/19/2020,01/11/2019,01/03/2015 Family History Medical History Relation Name Comments No Known Problems Brother No Known Problems Father No Known Problems Maternal Grandfather Cancer Maternal Grandmother uterine ? No Known Problems Mother No Known Problems Paternal Grandfather Alzheimer's disease Paternal Grandmother Arthritis Paternal Grandmother Diabetes mellitus type II Paternal Grandmother Relation Name Status Comments Brother Alive Father Alive Maternal Grandfather Alive Maternal Grandmother Mother Alive Paternal Grandfather Alive Paternal Grandmother Alive Social History Tobacco Use Types Packs/Day Years Used Date Smoking Tobacco: Never Smokeless Tobacco: Never Tobacco Cessation:Counseling Given: Not Answered Alcohol Use Standard Drinks/Week Comments Not Currently 0 (1 standard drink = 0.6 oz pur e alcohol) WEEKLY [employer] Utilities Answer Date Recorded In the past 12 months has e [employer] gas, oil, or water [employer] threatened to shut off services in your [...] often do you attend chur ch or hoahaoism services? 1 to 4 times per year 07/11/2021 Do you belong to any clubs o r organizations such as orthodox groups, unions, fraternal or athletic groups, or [...] and heating? Not hard at all 07/11/2021 [facility] of Occupat ional [facility] - Occupational Stress Questionnaire Answer Date Recorded [...] your living situation today? 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 Gender Identity Female 07/11/2021 7:48 PM CDT [...] Mass Index - - Plan of Treatment Health Maintenance Due Date Last Done Comments Lipid (Cholesterol) Screening 1986 Cervical Cancer Screening 11/22/2021 11/22/2018 Depression Screening (Annual PHQ-2) 03/14/2023 COVID-19 Vaccine ( season) 2023 02/06/2021, 01/16/2021 Influenza Vaccine (#1) 2023 , 02/08/2020, 01/11/2019, Additional history exists RSV vaccine - (32-36 weeks) or 60+ years (1 - Risk 1-dose series) 12/24/2023 DTaP,Tdap,and Td Vaccines (11 - Td or Tdap) 09/12/2029 09/13/2019, 10/26/2011, 10/02/2008, Additional history exists Hepatitis B Vaccines Completed 09/10/1998, 02/11/1998, 01/14/1998, Additional history exists HPV Vaccines Completed 01/10/2007, 12/14, 12/19/2006, Additional history exists HIV Screening Completed 02/09/2016 Pneumococcal vaccine (0-64 years) Aged Out No longer eligible based on patient's age to complete this topic Procedures Procedure Name Priority Date/Time Associated Diagnosis Comments HIV-1/HIV-2 AB RAPID PT SOURCE, B Routine 02/09/2016 9:53 PM BURRER HAND from Last 3 Months or Most Recently Relevant to Health Maintenance Results * HIV-1/HIV-2 Ab Rapid (02/09/2016 9:53 PM BURRER HAND) HIV-1/HIV-2 Ab Rapid, P Negative Negative [facility] 02/09/2016 9:53 PM BURRER HAND 02/09/2016 9:53 PM BURRER HAND Martín Woods M.D., M.P.H. LAB MICROBIOLOGY - BLOOD ORDERABLES Final Result [facility] [address] from Last 3 Months or Most Recently Relevant to Health Maintenance Insurance [employer] Care Teams Medical Record Librarians Teacher Relationship Specialty Start Date End Date None Reported, Pcp PCP - General Family Medicine 10/09/22
--- OUTSIDE RECORDS SUMMARY | 2024-01-04 12:01 | XMS_ITS | Encounter Summary ---
Author Organization [facility] Address [address] [place] [address] Care Team Providers Care Fruit And Vegetable Parer Name Role Phone None Reported, Pcp Primary Care Provider Unavail able Encounter Details Date Type Department Care Team (Latest Contact Info) Description 09/29/2023 8:47 AM CDT - 09/29/2023 11:59 PM CDT Hospital Encounter Department of Obstetrics and Gynecology in [place], [place] [address] [place] [address] Savita Smith M.D., Ph.D. [address] [place] [phone] Elderly Multigravida Greater Than 35 Year Old ([facility]) [O09.529] Discharge Disposition: Home or Self Care Social History Tobacco Use Types Packs/Day Years Used Date Smoking Tobacco: Never Smokeless Tobacco: Never Alcohol Use Standard Drinks/Week Comments Not Currently 0 (1 standard drink = 0.6 oz pur e alcohol) WEEKLY [facility] Utilities Answer Date Recorded In the past 12 months has [employer], gas, oil, or water [employer] threatened to shut off services in your [...] often do you attend chur ch or buddhism services? 1 to 4 times per year 07/11/2021 Do you belong to any clubs o r organizations such as christian groups, unions, fraternal or athletic groups, or [...] and heating? Not hard at all 07/11/2021 [facility] - Occupational Stress Questionnaire Answer [...] your living situation today? 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 07/19/2023 omeprazole (PriLOSEC) [address] capsule Take 20 mg by mouth daily before morning meal. 25/iron fum/folic/dha (-1 ORAL) Daily valACYclovir (VALTREX) 1000 mg tablet Twice A Day as needed 03/03/2021 documented as of this encounter Plan of Treatment Not on file documented as of this encounter Procedures Procedure Name Priority Date/Time Associated Diagnosis Comments US OB ADVANCED LEVEL SILVA RAD - Routine (most inpatients and all outpatients) 09/29/2023 10:18 AM CDT Elderly Multigravida Greater Than 35 Year Old (HCC) [O09.529] documented in this encounter Results * US OB Advanced Level Silva (09/29/2023 10:18 AM CDT) Anatomical Region Laterality Modality Body, Ultrasound OB RST LOS, Ultrasound ARZ LOS N/A Ultrasound Narrative 09/29/2023 10:25 AM CDT ADRIÁN RAND OB Exam, 09/29/2023 EXAM INFORMATION Patient Name: ??ADRIÁN RAND : ??1985 Age: ??37 yrs Sex: ??Female Ref Phys: ??SAVITA SMITH Exam Date: 09/29/2023 Procedure: US OB ADVANCED LEVEL SILVA Exam Site: [facility]5 Plurality: 1 INDICATIONS FOR SONOGRAPHY AMA, ??Anatomy IMPRESSION Silva intrauterine . NAKUL established by LMP consistent with 9 week scan. Incomplete anatomic survey: suboptimal views of the spinal column due to position; an echogenic intracardiac focus (EIF) is noted in the left ventricle, but no other structural anomalies or aneuploidy markers are visualized. All individual biometric parameters are consistent with gestational age. Posterior placenta without evidence of previa. Amniotic fluid volume normal. Recommend repeat ultrasound in 1-4 weeks to complete anatomic survey. MEASUREMENTS ??riccardo ??wks [+/-] (Range) % ?? BPD: 4.29 cm ?? 19w0d ??[+/-1.73] ??(3.76 - 4.94) 42% FL: ??3.08 cm ?? 19w4d ??[+/-1.80] ??(2.44 - 3.61) 57% HC: ??16.31 cm ?? 19w0d ??[+/-1.48] ??(14.66 - 18.58) 37% AC: ??14.46 cm ?? 19w5d ??[+/-2.06] ??(11.26 - 16.51) 66% HL: ??2.95 cm ?? 19w3d ? (2.33 - 3.33) 60% TCD: 1.84 cm ?? 18w5d ??[+/-1.80] ??(1.80 - 2.20) 20% NF: ??3.89 mm ? Cisterna Magna: 0.53 cm ? Lateral Ventricle: 0.59 cm ? RATIOS ??(Range) % ?? HC/AC: 1.13 ?(1.09 - 1.26) 24% ?? FL/BPD: 0.72 ? FL/AC: 0.21 ? LONG BONES SURVEY ??cm ??wks [+/-] (Range) % ?? Humerus: 2.95 cm ?? 19w3d ? (2.33 - 3.33) 60% Ulna: ?? 2.78 cm ? Radius: 2.56 cm ? Femur: 3.08 cm ?? 19w4d ??[+/-1.80] ??(2.44 - 3.61) 57% Tibia: 2.84 cm ? Fibula: 2.89 cm ? COMPUTATIONS GA: ?? 19w1d [+/-1.40] Method: ??Fetus ??[BPD, HC, AC, FL] NAKUL: ??02/22/2024 OBSERVATIONS Placenta: ??Placenta is Posterior. ??There is no evidence of a placenta previa. Presentation: ?Variable Size: ?Normal for dates Growth: ??Within normal limits. FHR: ??148 bpm ANATOMY Normal: Cerebellum, Vermis, Cisterna magna, Cerebral ventricle, Choroid plexus, Nuchal thickness, CSP, Midline falx, Palate, Maxilla, Mandible, Tongue, Interventricular septum, Situs, RVOT, LVOT, 3VV, 3VT, Aortic arch, Ductal arch, SVC/IVC, Pulmonary veins, Chest/Heart/lungs, Diaphragm, Anterior abdominal wall, Abdominal cord insertion, Placental cord insert , 3 vessel cord, Stomach, Kidneys (coronal and trans), Renal arteries, Bladder, Face, Upper lip/nose, Profile/Nasal Bone, Orbits/lens, Upper extremities, Lower extremities, Hands, Feet Abnormal: 4 chamber heart Not Seen: Sag and Trans Cervical spine, Sag and Trans Thoracic spine, Sag and Trans Lumbar spine, Sag and Trans Sacral spine COMMENTS Transabdominal ultrasound was performed. Detailed Anatomy Scan Silva . Size equals dates by LMP. The posterior placenta is without evidence of previa. The cervix is long. The amniotic fluid appears normal. The adnexae appear normal. *Incomplete anatomy due to position. Suboptimal views of spine. *Left ventricle EIF Preliminary Read by Jennifer Weston on 09/29/2023 10:16:44 AM. Plastic Cablemaking Machine Operator: ??Jennifer Weston Thank You For This Referral Procedure Note Winston Foley M.D. - 09/29/2023 ADRIÁN RAND OB Exam, 09/29/2023 EXAM INFORMATION Patient Name: ADRIÁN RAND : 1985 Age: 37 yrs Sex: Female Ref Phys: SAVITA Pulido LUIS Exam Date: 09/29/2023 Procedure: US OB ADVANCED LEVEL SILVA Exam Site: [facility]5 Plurality: 1 INDICATIONS FOR SONOGRAPHY AMA, Anatomy IMPRESSION Silva intrauterine . NAKUL established by LMP consistent with 9week scan. Incomplete anatomic survey: suboptimal views of thespinal column due to position; an echogenic intracardiac focus (EIF)is noted in the left ventricle, but no other structural anomalies or aneuploidy markers are visualized. Allindividual biometric parameters are consistent with gestational age.Posterior placenta without evidence of previa. Amniotic fluid volumenormal. Recommend repeat ultrasound in 1-4 weeks to complete anatomicsurvey. MEASUREMENTS riccardo wks [+/-] (Range) % BPD: 4.29 cm 19w0d [+/-1.73] (3.76 - 4.94) 42% FL: 3.08 cm 19w4d [+/-1.80] (2.44 - 3.61) 57% HC: 16.31 cm 19w0d [+/-1.48] (14.66 - 18.58) 37% AC: 14.46 cm 19w5d [+/-2.06] (11.26 - 16.51) 66% HL: 2.95 cm 19w3d (2.33 - 3.33) 60% TCD: 1.84 cm 18w5d [+/-1.80] (1.80 - 2.20) 20% NF: 3.89 mm Cisterna Magna: 0.53 cm Lateral Ventricle: 0.59 cm RATIOS (Range) % HC/AC: 1.13 (1.09 - 1.26) 24% FL/BPD: 0.72 FL/AC: 0.21 LONG BONES SURVEY cm wks [+/-] (Range) % Humerus: 2.95 cm 19w3d (2.33 - 3.33) 60% Ulna: 2.78 cm Radius: 2.56 cm Femur: 3.08 cm 19w4d [+/-1.80] (2.44 - 3.61) 57% Tibia: 2.84 cm Fibula: 2.89 cm COMPUTATIONS GA: 19w1d [+/-1.40] Method: Fetus [BPD, HC, AC, FL] NAKUL: 02/22/2024 OBSERVATIONS Placenta: Placenta is Posterior. There is no evidence of a placentaprevia. Presentation: Variable Size: Normal for dates Growth: Within normal limits. FHR: 148 bpm ANATOMY Normal: Cerebellum, Vermis, Cisterna magna, Cerebral ventricle, Choroidplexus, Nuchal thickness, CSP, Midline falx, Palate, Maxilla, Mandible,Tongue, Interventricular septum, Situs, RVOT, LVOT, 3VV, 3VT, Aortic arch,Ductal arch, SVC/IVC, Pulmonary veins, Chest/Heart/lungs, Diaphragm, Anterior abdominal wall, Abdominalcord insertion, Placental cord insert , 3 vessel cord, Stomach, Kidneys(coronal and trans), Renal arteries, Bladder, Face, Upper lip/nose,Profile/Nasal Bone, Orbits/lens, Upper extremities, Lower extremities, Hands, Feet Abnormal: 4 chamber heart Not Seen: Sag and Trans Cervical spine, Sag and Trans Thoracic spine, Sagand Trans Lumbar spine, Sag and Trans Sacral spine COMMENTS Transabdominal ultrasound was performed. Detailed Anatomy Scan Silva . Size equals dates by LMP. The posterior placenta iswithout evidence of previa. The cervix is long. The amniotic fluid appearsnormal. The adnexae appear normal. *Incomplete anatomy due to position. Suboptimal views of fetalspine. *Left ventricle EIF Preliminary Read by Jennifer Weston on 09/29/2023 10:16:44 AM. Plastic Cablemaking Machine Operator: Jennifer Weston Thank You For This Referral us Savita Smiht M.D., Ph.D. IMG OB US PRASAD ES Final Result documented in this encounter Visit Diagnoses Diagnosis Elderly Multigravida Greater Than 35 Year Old (HCC) [O09.529] documented in this encounter Care Teams Fruit And Vegetable Parer Relationship Specialty Start Date End Date None Reported, Pcp PCP - General Family Medicine 10/09/22 documented as of this encounter
--- OUTSIDE RECORDS SUMMARY | 2024-01-04 12:01 | XMS_ITS | Encounter Summary ---
Author Organization [facility] Address [address] [place] [address] Care Team Providers Care Chopper Operator Name Role Phone None Reported, Pcp Primary Care Provider Unavail able Encounter Details Date Type Department Care Team (Late st Contact Info) Description 10/06/2023 Orders Only Department of Obstetrics and Gynecology in [place], [place] [address] [place] [phone] Sarah Kumar R.NFabricio [address] [place] [phone] Examination Other Normal Second Trimester (HCC) (Primary Dx) Social History Tobacco Use Types Packs/Day Years Used Date Smoking Tobacco: Never Smokeless Tobacco: Never Alcohol Use Standard Drinks/Week Comments Not Currently 0 (1 standard drink = 0.6 oz pur e alcohol) WEEKLY [facility] Utilities Answer Date Recorded In the past 12 months has [facility] [employer], gas, oil, or water [employer] threatened to shut off services in your [...] often do you attend chur ch or jain services? 1 to 4 times per year 07/11/2021 Do you belong to any clubs o r organizations such as adventist groups, unions, fraternal or athletic groups, or [...] and heating? Not hard at all 07/11/2021 [facility] [employer] [facility] ional Health - Occupational Stress [...] your living situation today? 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
--- OUTSIDE RECORDS SUMMARY | 2024-01-04 12:02 | XMS_ITS | Encounter Summary ---
Author Organization [facility] Address [address] [place] [address] Care Team Providers Care Supervisor Pole Yard Name Role Phone No Ref-Primary, Physician Primary Care Provider Reason for Referral * Diagnostic Imaging Ultrasound (Routine) - Pending Review Specialty Diagnoses / Procedures Referred By Marquiseac t Referred To Contact Radiology. Diagnoses related condition, antepartum Procedures [facility] US Comprehensive Single Danette Beatty MD [address] [place] [address] Phone: tel: fax: Referral ID Status Reason Start Date Expiration Date V isits Requested Visits Authorized [id number] Pending Review 11/25/2023 11/24/2024 1 1 Reason for Visit * Diagnostic Imaging Ultrasound (Routine) - Pending Review Specialty Diagnoses / Procedures Referred By Marquiseac t Referred To Contact Radiology. Diagnoses related condition, antepartum Procedures [facility] US Comprehensive Single Danette Beatty MD [address] [place] [address] Phone: tel: fax: Referral ID Status Reason Start Date Expiration Date V isits Requested Visits Authorized [id number] Pending Review 11/25/2023 11/24/2024 1 1 Encounter Details Date Type Department Care Team (Latest Contact Info) Description 12/07/2023 10:15 AM CDT - 12/07/2023 11:59 PM CDT Hospital Encounter [facility] Maternal Medicine [facility] [address] [place] [address] Danette Beatty MD [address] [place] [address] Karuna Mata MD [address] [place] [address] related condition, antepartum Discharge Disposition: Home or Self Care Social History Tobacco Use Types Packs/Day Years Used Date Smoking Tobacco: Never Assessed Adolescent Education Answer Date Record ed Getting School Help Needed Not on file 12/12 Estimated Date of Delivery Comme nts Yes 02/21/2024 Based on Ultraso und Sex and Gender Information Value Date Recorded Sex Assigned at Not on file 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 Gender Identity Not on file Sexual Orientation Not on file documented as of this encounter Plan of Treatment Not on file documented as of this encounter Procedures Procedure Name Priority Date/Time Associated Diagnosis Comments [facility] COMPREHENSIVE SINGLE Routine 12/07/2023 11:13 AM CDT related condition, antepartum documented in this encounter Results * [facility] Comprehensive Single (12/07/2023 11:13 AM CDT) Anatomical Region Laterality Modality Ultrasound 12/07/2023 10:2 0 AM CDT Impressions 12/07/2023 2:51 PM CDT IMPRESSION ----- 1. Reyes at 29w 1d gestational age. 2. No anomalies commonly detected by ultrasound were identified in the detailed anatomic survey within the limits of ultrasound. 3. Growth parameters and estimated weight were consistent with gestational age predicted by assigned NAKUL. 4. The [...] ? Study Date: ??12/07/2023 10:20am Pat. NO: ??[id number] ?Referring ??MD: DANETTE BEATTY Site: ? Procurement Forester: Sherry Pimentel RDMS : ??1985 ?Age: ?? [...] lb 13 ?oz EFW by ? [facility] ([id number]) Head / Face / Neck Biometry: Cardiac Nurse Specialist ?5.8 ? mm CM ? 6.0 ? [...] view. RVOT view. LVOT view. 3-vessel view. 6-sixafj-fpculub view. Situs. Aortic arch view. Bicaval view. [...] medical record, and communicating with other health managed care specialist and/or care coordination. Please see note for details. Procedure Note Karuna Mata MD - 12/07/2023 Comprehensive ----- Pat. Name: ADRIÁN RAND Study Date: 12/07/2023 10:20am Pat. NO: [id number] Referring MD: DANETTE BEATTY Site: Procurement Forester: Sherry Pimentel RDMS : 1985 Age: 37 ----- INDICATION ----- Placental abnormality on outside ultrasound. AMA, low risk NIPT. METHOD ----- Transabdominal ultrasound examination. View: Suboptimal view: limited bylate gestational age ----- Reyes . Number of fetuses: 1 DATING ----- DateDetailsGest. age NAKUL LMP 4Cycle: irregular cycle29 w + 4 d 02/18/2024 [...] EFW (lb,oz) 3 lb 13oz EFW by [facility]([id number]) Head / Face / Neck Biometry: Cardiac Nurse Specialist 5.8mm CM 6.0mm Nasal bone 8.9mm ANATOMY ----- The following structures appear normal: Head / Neck Cranium. Head size. Head shape.Lateral ventricles. Choroid plexus. Midline falx. Cavum septi pellucidi.Cerebellum. Cisterna magna. Parenchyma. Thalami. Vermis. Neck. Face Lips. Profile. Nose. Maxilla.Mandible. Orbits. Lens. Heart / Thorax 4-chamber view. RVOT view. LVOT view.3-vessel view. 4-kzqxqg-zbdiqjz view. Situs. Aortic arch view. Bicavalview. Ductal [...] electronic medical record, andcommunicating with other health managed care specialist and/or carecoordination. Please see note for details. [...] of the placenta. us [facility] Edited Result - Final documented in this encounter Visit Diagnoses Diagnosis related condition, antepartum documented in this encounter Care Teams Supervisor Pole Yard Relationship Specialty Start Date End Date No Ref-Primary, Physician PCP - General 11/25/23 documented as of this encounter
--- OUTSIDE RECORDS SUMMARY | 2024-01-04 12:02 | XMS_ITS | Encounter Summary ---
Author Organization [facility] Address [address] [place] [address] Care Team Providers Care Hat Braider Name Role Phone No Ref-Primary, Physician Primary Care Provider Reason for Referral * Diagnostic Imaging Ultrasound (Routine) - Pending Review Specialty Diagnoses / Procedures Referred By Contac t Referred To Contact Radiology. Diagnoses related condition, antepartum Procedures [facility] US Comprehensive Single Danette Beatty MD [address] [place] [address] Phone: tel: fax: Referral ID Status Reason Start Date Expiration Date V isits Requested Visits Authorized [id number] Pending Review 11/25/2023 11/24/2024 1 1 Encounter Details Date Type Department Care Team (Latest Contact Info) Description 11/25/2023 Transcribe Orders [facility] [place] [address] [facility] [address] [place] [phone] Danette Beatty MD [address] [place] [address] related condition, antepartum (Primary Dx) Social History Tobacco Use Types Packs/Day Years Used Date Smoking Tobacco: Never Assessed Adolescent Education Answer Date Record ed Getting School Help Needed Not on file 12/12 Comments No Sex and Gender Information Value Date Recorded Sex Assigned at Not on file 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 Study Date: ??12/07/2023 10:20am Pat. NO: ??[id number] ?Referring ??MD: DANETTE DON-BAUTISTA Site: ? Booking Officer: Sherry PimentelLUISA : ??1985 ?Age: ?? 37 ----- INDICATION [...] BPD ? 75.1 ?mm ? 30w 1d ?Yumiko CARMONA ? 100.3 ?mm ? 29w 4d ?Nicolaides [...] ?3 lb 13 ?oz [facility]FW [facility] ? [facility] ([id number]) Head / Face / Neck Biometry: Data Warehouse Specialist ?5.8 ? mm CM ? 6.0 [...] view. RVOT view. LVOT view. 3-vessel view. 1-rewtma-thjtqkc view. Situs. Aortic arch view. Bicaval view. [...] medical record, and communicating with other health rn progressive care and/or care coordination. Please see note for details. Procedure Note Karuna Mata MD - 12/07/2023 Comprehensive ----- Pat. Name: ADRIÁN RAND Study Date: 12/07/2023 10:20am Pat. NO: [id number] Referring MD: DANETTE BEATTY Site: Booking Officer: Sherry Pimentel RDMS : 1985 Age: 37 [...] d 02/09/2024 Assigned dating based on ultrasound (), selected on12/07/2023 29w + 1 d 02/21/2024 [...] EFW (lb,oz) 3 lb 13oz EFW by Hadlock([id number]) Head / Face / Neck Biometry: Data Warehouse Specialist 5.8mm CM 6.0mm Nasal bone 8.9mm ANATOMY ----- The following structures appear normal: Head / Neck Cranium. Head size. Head shape.Lateral ventricles. Choroid plexus. Midline falx. Cavum septi pellucidi.Cerebellum. Cisterna magna. Parenchyma. Thalami. Vermis. Neck. Face Lips. Profile. Nose. Maxilla.Mandible. Orbits. Lens. Heart / Thorax 4-chamber view. RVOT view. LVOT view.3-vessel view. 0-ywwxxl-ouaeehw view. Situs. Aortic arch view. Bicavalview. Ductal [...] electronic medical record, andcommunicating with other health rn progressive care and/or carecoordination. Please see note for details. [...] of the placenta. us Danette Beatty MD [facility] ORDERABLE S Edited Result - Final documented in this encounter Visit Diagnoses Diagnosis related condition, antepartum- Primary related condition, antepartum documented in this encounter Care Teams Hat Braider Relationship Specialty Start Date End Date No Ref-Primary, Physician PCP - General 11/25/23 documented as of this encounter
--- OUTSIDE RECORDS SUMMARY | 2024-01-04 12:02 | XMS_ITS | Encounter Summary ---
Author Organization [facility] Address [address] [place] [address] Care Team Providers Care Resaw Feeder Name Role Phone No Ref-Primary, Physician Primary Care Provider Reason for Visit * Reason Comments Ultrasound L2- Malformation of placenta, AMA Encounter Details Date Type Department Care Team (Late st Contact Info) Description 11/29/2023 PRE VISIT [facility] [place] [address] [facility] [address] [place] [address] Paulina Guardado RN Ultrasound (L2- Malformation of placenta, AMA) Social History Tobacco Use Types Packs/Day Years Used Date Smoking Tobacco: Never Assessed Adolescent Education Answer Date Record ed Getting School Help Needed Not on file 12/12 Estimated Date of Delivery Comme nts Yes 02/21/2024 Based on Ultraso und Sex and Gender Information Value Date Recorded Sex Assigned at Not on file 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
--- OUTSIDE RECORDS SUMMARY | 2024-01-04 12:02 | XMS_ITS | Referral Summary ---
Author Organization [facility] Address [address] [place] [address] Care Team Providers Care Government Employee Name Role Phone No Ref-Primary, Physician Primary Care Provider Encounters Date Type Department Care Team Description 12/07/2023 Travel 12/07/2023 10:45 AM CDT Office Visit [facility] 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 [place] [address] Danette Sage MD Sabol, Bethany, MD related condition, antepartum Discharge Disposition: Home or Self Care 11/29/2023 PRE VISIT [facility] [address] [place] [address] Paulina Guardado RN Ultrasound (L2- Malformation of placenta, AMA) 11/25/2023 Medical Correspondence [facility] Information Management [address] [place] [address] [address] [place] [address] Scan, Non-Provider 11/25/2023 Transcribe Orders [facility] [place] [address] [place] [address] Danette Sage MD related condition, antepartum (Primary Dx) 11/25/2023 Transcribe Orders [facility] Maternal Medicine [facility] [address] [place] [address] Danette Sage MD related condition, antepartum (Primary Dx) 11/24/2023 Medical Correspondence [facility] Health Information Management [address] [facility] [address] [place] [address] Scan, Non-Provider from Last 3 Months Social History Tobacco Use Types Packs/Day Years Used Date Smoking Tobacco: Never Assessed Adolescent Education Answer Date Record ed Getting School Help Needed Not on file 12/12 Estimated Date of Delivery Comme nts Yes 02/21/2024 Based on Ultraso und Sex and Gender Information Value Date Recorded Sex Assigned at Not on file 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 Study Date: ??12/07/2023 10:20am Pat. NO: ??[id number] ?Referring ??MD: DANETTE BEATTY Site: ? Fitness Sales Associate: Sherry Pimentel RDMS : ??1985 ?Age: ?? [...] lb 13 ?oz EFW by ? Hadlock ([id number]) Head / Face / Neck Biometry: Tea Tree Farm Worker ?5.8 ? mm CM ? 6.0 ? [...] view. RVOT view. LVOT view. 3-vessel view. 6-mxtmsg-alqmkhu view. Situs. Aortic arch view. Bicaval view. [...] medical record, and communicating with other health social worker palliative care and/or care coordination. Please see note for details. Procedure Note Karuna Mata MD - 12/07/2023 Comprehensive ----- Pat. Name: ADRIÁN RAND Study Date: 12/07/2023 10:20am Pat. NO: [id number] Referring MD: DANETTE BEATTY Site: Fitness Sales Associate: Sherry Pimentel RDMS : 1985 Age: 37 [...] EFW (lb,oz) 3 lb 13oz EFW by Hadlock([id number]) Head / Face / Neck Biometry: Tea Tree Farm Worker 5.8mm CM 6.0mm Nasal bone 8.9mm ANATOMY ----- The following structures appear normal: Head / Neck Cranium. Head size. Head shape.Lateral ventricles. Choroid plexus. Midline falx. Cavum septi pellucidi.Cerebellum. Cisterna magna. Parenchyma. Thalami. Vermis. Neck. Face Lips. Profile. Nose. Maxilla.Mandible. Orbits. Lens. Heart / Thorax 4-chamber view. RVOT view. LVOT view.3-vessel view. 7-jgmibm-jornydk view. Situs. Aortic arch view. Bicavalview. Ductal [...] electronic medical record, andcommunicating with other health social worker palliative care and/or carecoordination. Please see note for [...] of the placenta. us [facility]ette Beatty MD [facility] S Edited Result - Final from Last 3 Months Insurance ARABELLA PERRY [id number] [place] Care Teams Government Employee Relationship Specialty Start Date End Date No Ref-Primary, Physician PCP - General 11/25/23
--- OUTSIDE RECORDS SUMMARY | 2024-01-04 12:02 | XMS_ITS | Encounter Summary ---
Author Organization [facility] Address [address] [place] [address] Care Team Providers Care Marketing Program Coordinator Name Role Phone No Ref-Primary, Physician Primary Care Provider Encounter Details Date Type Department Care Team (Late st Contact Info) Description 11/25/2023 Medical Correspondence [facility] Health Information Management [address] [place] [address] [address] [place] [address] Scan, Non-Provider Social History Tobacco Use Types Packs/Day Years Used Date Smoking Tobacco: Never Assessed Adolescent Education Answer Date Record ed Getting School Help Needed Not on file 12/12 Comments No Sex and Gender Information Value Date Recorded Sex Assigned at Not on file 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
--- OUTSIDE RECORDS SUMMARY | 2024-01-04 12:02 | XMS_ITS | Encounter Summary ---
Author Organization [facility] Address [facility] [place] [address] Care Team Providers Care Acid Conditioning Worker Name Role Phone No Ref-Primary, Physician Primary Care Provider Reason for Visit * Reason Comments Ultrasound L2-malformation of p lacenta, ?placental velez Encounter Details Date Type Department Care Team (Late st Contact Info) Description 12/07/2023 10:45 AM CDT Office Visit [facility] [place] [address] [facility] [address] [place] [address] Danette Rivera MD [address] [place] [address] Karuna Mata MD [address] [place] [address] [address] [place] [address] Multigravida of advanced maternal age in second trimester (Primary Dx); 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; Bilobate placenta, third trimester Social History Tobacco Use Types Packs/Day Years Used Date Smoking Tobacco: Never Assessed Adolescent Education Answer Date Record ed Getting School Help Needed Not on file 12/12 Estimated Date of Delivery Comme nts Yes 02/21/2024 Based on Ultraso und Sex and Gender Information Value Date Recorded Sex Assigned at Not on file 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 For a detailed report of the ultrasound examination, please see the ultrasound report which can be found under the imaging tab. If you have questions regarding today's evaluation or if we can be of further service, please contact the Maternal- Medicine Center. Karuna Mata MD Test Department Helper, DIGITAL SALES ASSISTANT Maternal- Medicine [phone] (Pager) documented in this encounter Nursing Notes * Agnieszka Monge, RN - 12/07/2023 10:45 AM CDT Patient presents to [facility] for L2 at 29w4d due to malformation of placenta, ?placental velez. Positive movement. Denies LOF, vaginal bleeding or cramping/contractions. SBAR given to [facility] MD, see their note in Epic. 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
--- OUTSIDE RECORDS SUMMARY | 2024-01-04 12:02 | XMS_ITS | Encounter Summary ---
Author Organization [facility] Address [address] [place] [address] Care Team Providers Care Telephone Repairer Name Role Phone No Ref-Primary, Physician Primary Care Provider Encounter Details Date Type Department Care Team (Latest Contact Info) Description 12/07/2023 Travel Social History Tobacco Use Types Packs/Day Years Used Date Smoking Tobacco: Never Assessed Adolescent Education Answer Date Record ed Getting School Help Needed Not on file 12/12 Estimated Date of Delivery Comme nts Yes 02/21/2024 Based on Ultraso und Sex and Gender Information Value Date Recorded Sex Assigned at Not on file 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
--- OUTSIDE RECORDS SUMMARY | 2024-01-04 12:02 | XMS_ITS | Encounter Summary ---
Author Organization [facility] Address [address] [place] [address] Care Team Providers Care Piano Regulator Inspector Name Role Phone No Ref-Primary, Physician Primary Care Provider Encounter Details Date Type Department Care Team (Late st Contact Info) Description 11/24/2023 Medical Correspondence [facility] Health Information Management [address] [place] [address] [address] [place] [address] Scan, Non-Provider Social History Tobacco Use Types Packs/Day Years Used Date Smoking Tobacco: Never Assessed Adolescent Education Answer Date Record ed Getting School Help Needed Not on file 12/12 Comments No Sex and Gender Information Value Date Recorded Sex Assigned at Not on file 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
--- OUTSIDE RECORDS SUMMARY | 2024-01-04 12:02 | XMS_ITS | Encounter Summary ---
Author Organization [facility] Address [address] [place] [address] Care Team Providers Care Industrial Waste Treatment Technician Name Role Phone No Ref-Primary, Physician Primary Care Provider Reason for Referral * Consultation (Routine: Next available opening) - Pending Review Specialty Diagnoses / Procedures Referred By Asael gordon Referred To Contact Diagnoses related condition, antepartum Danette Rivera MD [address] [place] [address] Phone: tel: fax: [facility] [place] [address] [facility] [address] [place] [address] Phone: tel: fax: Referral ID Status Reason Start Date Expiration Date V isits Requested Visits Authorized [id number] Pending Review 11/25/2023 11/24/2024 1 1 Question Answer Preferred Location: [facility] [place] NAKUL 02/18/2024 Ultrasound Comprehensive US (>than 18 weeks GA) US PROC NONE MFM Issue Advanced Maternal Age *MUST request Genetic Counseling - malformation of placenta, AMA STEVO LUBIN Consultation (unrelated to Ultrasound findings): No Inflammatory Bowel Disease Clinic: Joint MFM and GI Consultation: No Chronic Kidney Disease: Joint MFM and Nephrology Consultation No Cardio-Obstetrics: Joint MFM and Cardiology Consultation No Genetic Counseling Consultation: No fax [facility] - Danette Rivera - [phone] Comments There is no height or weight on file to calculate BMI. >> Patient may proceed with recommendations for further testing as directed by the Maternal Medicine Specialist >> >> If requesting Echo: MFM will determine appropriate location for exam due to indication. Please be aware that coverage of these services is subject to the terms and limitations of your health insurance plan. Call member services at your health plan with any benefit or coverage questions. 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 Gender Identity Not on file Sexual Orientation Not on file documented as of this encounter Plan of Treatment Scheduled Referrals Name Type Priority Associated Diagnoses Orde r Schedule Mat Med Ctr Referral - Referral Routine: Next available opening related condition, antepartum Expected: 11/25/2023 (Approximate), Expires: 05/23/2024 documented as of this encounter Visit Diagnoses Diagnosis related condition, antepartum- Primary documented in this encounter Care Teams Industrial Waste Treatment Technician Relationship Specialty Start Date End Date No Ref-Primary, Physician PCP - General 11/25/23 documented as of this encounter
--- NOTE | 2024-01-04 12:15 | CRLHL7_ITS ---
For Patients: As a result of the Century Cures Act, medical imaging exams and procedure reports are released immediately into your electronic medical record. You may view this report before your referring provider. If you have questions, please contact your health care provider. INDICATION: Third trimester scan, evaluate growth. Placenta malformation COMPARISON: 09/29/2023, 11/01/2023, 11/24/2023 TECHNIQUE: Real time borjas scale imaging of the fetus was performed. FINDINGS: Sonographic imaging demonstrates a single living intrauterine gestation. Fetus demonstrates a regular cardiac rate of 145 beats per minute. Fetus has a vertex position. The placenta lies right posterior. Residual hypoechoic fluid associated with the placenta measures 6.8 x 5.8 x 1.0 cm. Bilobed placenta with velamentous insertion again noted. Amniotic fluid volume appears normal and there is a single deepest vertical pocket: 5.8 cm. The estimated weight is 2351gm which lies at the 72nd %. BPD 62nd percentile. HC is 69th percentile. AC 85th percentile. FL 39th percentile. The HC/AC ratio measures 1.03 range (0.94-1.11). IMPRESSION: Sonographic gestational age 34 weeks 1 day and sonographic due date 02/14/2024. Sonographic age 1 week ahead of the clinical age. Estimated weight 72nd percentile. Abdominal circumference 85th percentile. Placenta velez again noted along with bilobed placenta with velamentous insertion of the cord. Dictated by Conrad Black MD @ 01/04/2024 4:40:54 PM (Electronically Signed)
== END 2024-01-04 12:00 | disposition home or self-care (01) ==
PROVIDERS: PCP Nurse Practitioner Family; Visit Provider Obstetrics & Gynecology
DX: O43.103 Malformation of placenta, unspecified, third trimester (principal); O09.523 Supervision of elderly multigravida, third trimester; Z3A.34 34 weeks gestation of pregnancy
CPT/HCPCS: 76816

== ENCOUNTER 2024-01-25 09:16 | Outpatient (CLI) | payer OTHER, SELFPAY ==
--- NOTE | 2024-01-25 09:15 | CRLHL7_ITS ---
For Patients: As a result of the Century Cures Act, medical imaging exams and procedure reports are released immediately into your electronic medical record. You may view this report before your referring provider. If you have questions, please contact your health care provider. INDICATION: Bilobed placenta TECHNIQUE: Ultrasound OB pelvis transabdominal. Real-time borjas-scale imaging of the fetus was performed. COMPARISON: Ob ultrasound 01/04/2024 FINDINGS: Gestation: Single Presentation: Cephalic Placenta location: Posterior bilobed placenta. The previously noted velamentous insertion and placental velez are poorly visualized due to placental and position. heart rate: 137 bpm Amniotic fluid volume single deepest pocket 4.1 cm, 2/2. motion 2/2. tone 2/2. breathing movements 2/2. Limited evaluation of anatomy demonstrates no gross abnormality. US/AUA: 36 weeks, 1 day. US NAKUL: 02/21/2024 IMPRESSION: 1. Single live intrauterine gestation with a biophysical profile of8/8 at 36 weeks, 1 day. NAKUL of 02/21/2024. 2. Bilobed placenta located posteriorly. The previously seen placental velez and velamentous insertion are poorly visualized on this exam due to placental and position. Dictated by Nayeli Dunaway MD @ 01/25/2024 3:01:43 PM (Electronically Signed)
--- OUTSIDE RECORDS SUMMARY | 2024-01-25 09:18 | XMS_ITS | Encounter Summary ---
Author Organization [facility] Address [address] [place] [address] Care Team Providers Care Asset Availability Leader Name Role Phone No Ref-Primary, Physician Primary Care Provider Encounter Details Date Type Department Care Team (Late st Contact Info) Description 11/25/2023 Medical Correspondence [facility] Health Information Management [address] [place] [address] [address] [place] [address] Scan, Non-Provider Social History Tobacco Use Types Packs/Day Years Used Date Smoking Tobacco: Never Assessed Adolescent Education Answer Date Record ed Getting School Help Needed Not on file 12/12 Comments No Sex and Gender Information Value Date Recorded Sex Assigned at Not on file 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
--- OUTSIDE RECORDS SUMMARY | 2024-01-25 09:18 | XMS_ITS | Encounter Summary ---
Author Organization [facility] Address [address] [place] [address] Care Team Providers Care Rail Filler Name Role Phone No Ref-Primary, Physician Primary Care Provider Reason for Visit * Reason Comments Ultrasound L2- Malformation of placenta, AMA Encounter Details Date Type Department Care Team (Late st Contact Info) Description 11/29/[address] [facility] Maternal Medicine [facility] [place] [address] 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
--- OUTSIDE RECORDS SUMMARY | 2024-01-25 09:18 | XMS_ITS | Encounter Summary ---
Author Organization [facility] Address [address] [place] [address] Care Team Providers Care Adventure Guide Name Role Phone No Ref-Primary, Physician Primary Care Provider Reason for Referral * Diagnostic Imaging Ultrasound (Routine) - Pending Review Specialty Diagnoses / Procedures Referred By Marquiseac t Referred To Contact Radiology. Diagnoses related condition, antepartum Procedures [facility] US Comprehensive Single Danette Beatty MD [address] [place] [address] Phone: tel: fax: Referral ID Status Reason Start Date Expiration Date V isits Requested Visits Authorized [id number] Pending Review 11/25/2023 11/24/2024 1 1 Reason for Visit * Diagnostic Imaging Ultrasound (Routine) - Pending Review Specialty Diagnoses / Procedures Referred By Marquiseac t Referred To Contact Radiology. Diagnoses related condition, antepartum Procedures [facility] US Comprehensive Single Danette Beatty MD [address] [place] [address] Phone: tel: fax: Referral ID Status Reason Start Date Expiration Date V isits Requested Visits Authorized [id number] Pending Review 11/25/2023 11/24/2024 1 1 Encounter Details Date Type Department Care Team (Latest Contact Info) Description 12/07/2023 10:15 AM CDT - 12/07/2023 11:59 PM CDT Hospital Encounter [facility] Maternal Medicine [facility] [address] [place] [address] Danette Beatty MD [address] [place] [address] Karuna Mata MD [address] [place] [address] related condition, antepartum Discharge Disposition: [...] on file 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 Study Date: ??12/07/2023 10:20am Pat. NO: ??[id number] ?Referring ??MD: DANETTE BEATTY Site: ? Equal Opportunity Specialist: Sherry Pimentel RDMS : ??1985 ?Age: ?? [...] lb 13 ?oz EFW by ? Hadlock ([id number]) Head / Face / Neck Biometry: Planning Associate ?5.8 ? mm CM ? 6.0 ? [...] view. RVOT view. LVOT view. 3-vessel view. 4-mhdfcz-ljwxalc view. Situs. Aortic arch view. Bicaval view. [...] medical record, and communicating with other health child care supervisor and/or care coordination. Please see note for details. Procedure Note Karuna Mata MD - 12/07/2023 Comprehensive ----- Pat. Name: ADRIÁN RAND Study Date: 12/07/2023 10:20am Pat. NO: [id number] Referring MD: DANETTE BEATTY Site: Equal Opportunity Specialist: Sherry Pimentel RDMS : 1985 Age: 37 [...] EFW (lb,oz) 3 lb 13oz EFW by Hadlock([id number]) Head / Face / Neck Biometry: Planning Associate 5.8mm CM 6.0mm Nasal bone 8.9mm ANATOMY ----- The following structures appear normal: Head / Neck Cranium. Head size. Head shape.Lateral ventricles. Choroid plexus. Midline falx. Cavum septi pellucidi.Cerebellum. Cisterna magna. Parenchyma. Thalami. Vermis. Neck. Face Lips. Profile. Nose. Maxilla.Mandible. Orbits. Lens. Heart / Thorax 4-chamber view. RVOT view. LVOT view.3-vessel view. 1-sldprc-sxdybdk view. Situs. Aortic arch view. Bicavalview. Ductal [...] electronic medical record, andcommunicating with other health child care supervisor and/or carecoordination. Please see note for details. [...] of the placenta. us Danette Beatty MD [facility] US ORDERABLE S Edited Result - Final documented in this encounter Visit Diagnoses Diagnosis related condition, antepartum documented in this encounter Care Teams Adventure Guide Relationship Specialty Start Date End Date No Ref-Primary, Physician PCP - General 11/25/23 documented as of this encounter
--- OUTSIDE RECORDS SUMMARY | 2024-01-25 09:18 | XMS_ITS | Encounter Summary ---
Author Organization [facility] Address [address] [place] [address] Care Team Providers Care Metal Sprayer Production Name Role Phone None Reported, Pcp Primary Care Provider Unavail able Encounter Details Date Type Department Care Team (Late st Contact Info) Description 10/06/2023 Orders Only Department of Obstetrics and Gynecology in [place], [place] [address] [place] [phone] Sarah Kumar R.NFabricio [address] [place] [phone] Examination Other Normal Second Trimester (HCC) (Primary Dx) Social History Tobacco Use Types Packs/Day Years Used Date Smoking Tobacco: Never Smokeless Tobacco: Never Alcohol Use Standard Drinks/Week Comments Not Currently 0 (1 standard drink = 0.6 oz pur e alcohol) WEEKLY [facility] Utilities Answer Date Recorded In the past [address] [facility] [employer], gas, oil, or water [employer] threatened to shut off services in your [...] any clubs o r organizations such as druze groups, unions, fraternal or athletic groups, or [...] and heating? Not hard at all 07/11/2021 [facility] [place] of Occupat ional Health - Occupational Stress [...] your living situation today? I have a [facility] place to live 09/26/2023 Education [...] PM CDT Legal Sex Female 2:[address] DEPARTMENT DISPATCHER Gender Identity Female 07/11/2021 7:48 PM CDT Sexual Orientation Straight 07/11/2021 7: 48 PM CDT documented as of this encounter Plan of Treatment Not on file documented as of this encounter Visit Diagnoses Diagnosis Examination Other Normal Second Trimester (HCC)- Primary documented in this encounter Care Teams Metal Sprayer Production Relationship Specialty Start Date End Date None Reported, Pcp PCP - General Family Medicine 10/09/22 documented as of this encounter
--- OUTSIDE RECORDS SUMMARY | 2024-01-25 09:18 | XMS_ITS | Encounter Summary ---
Author Organization [facility] Address [address] [place] [address] Care Team Providers Care Hair Assistant Name Role Phone No Ref-Primary, Physician Primary [...] on file Legal Sex Female 3:28 AM FUGITIVE INVESTIGATOR Gender Identity Not on file Sexual Orientation Not on file documented as of this encounter Plan of Treatment Not on file documented as of this encounter Visit Diagnoses Not on filedocumented in this encounter Care Teams Hair Assistant Relationship Specialty Start Date End Date No Ref-Primary, Physician PCP - General 11/25/23 documented as of this encounter
--- OUTSIDE RECORDS SUMMARY | 2024-01-25 09:18 | XMS_ITS ---
Author Organization [facility] Address [address] [place] [address] Care Team Providers Care Production Helper Name Role Phone Unavailable Unavailable Unavailable Surgery Details Not on file Complications Check Surgery Details section. Procedure Estimated Blood Loss Check Surgery Details section. Procedure Findings Check Surgery Details section. Procedure Specimens Taken Check Surgery Details section.
--- OUTSIDE RECORDS SUMMARY | 2024-01-25 09:18 | XMS_ITS | Referral Summary ---
Author Organization [facility] Address [address] [place] [address] Care Team Providers Care Front Office Coordinator Name Role Phone None Reported, Pcp Primary Care Provider Unavail able Source Comments Patient records contain information from all sites at [facility]. For routine questions regarding patient records, call [phone] during business hours, M-F 8:00 AM - 5:00 PM Central Time. Record requests for emergency care only can be directed to [phone] at any time.[facility] Allergies No known active allergies Medications 25/iron [...] = 0.6 oz pur e alcohol) WEEKLY [facility] Utilities Answer Date Recorded In the past 12 months has e electric, gas, oil, or water company [...] week 07/11/2021 How often do you attend [facility] or [facility] services? 1 to 4 times per year 07/11/2021 Do you belong to any clubs o r organizations such as islam groups, unions, fraternal or athletic groups, or [...] and heating? Not hard at all 07/11/2021 [facility] [place] of Occupat ional Health - Occupational Stress [...] your living situation today? I have a [facility] place to live 09/26/2023 Education Answer Date [...] PM CDT Legal Sex Female 2:11 AM MEDICAL SECRETARY RECEPTIONIST Gender Identity Female 07/11/2021 7:48 PM CDT [...] PT SOURCE, B Routine 02/09/2016 9:53 PM MEDICAL SECRETARY RECEPTIONIST from Last 3 Months or Most Recently Relevant to Health Maintenance Results * HIV-1/HIV-2 Ab Rapid (02/09/2016 9:53 PM MEDICAL SECRETARY RECEPTIONIST) HIV-1/HIV-2 Ab Rapid, P Negative Negative [facility] 02/09/2016 9:53 PM MEDICAL SECRETARY RECEPTIONIST 02/09/2016 9:53 PM MEDICAL SECRETARY RECEPTIONIST us Martín Woods M.D., M.P.H. LAB MICROBIOLOGY - BLOOD ORDERABLES Final Result [facility] [address] [place] [address], [facility] from Last 3 Months or Most Recently Relevant to Health Maintenance Insurance [employer] Care Teams Front Office Coordinator Relationship Specialty Start Date End Date None Reported, Pcp PCP - General Family Medicine 10/09/22
--- OUTSIDE RECORDS SUMMARY | 2024-01-25 09:18 | XMS_ITS | Encounter Summary ---
Author Organization [facility] Address [facility] [place] [address] Care Team Providers Care Marine Oil Terminal Superintendent Name Role Phone No Ref-Primary, Physician Primary Care Provider Reason for Visit * Reason Comments Ultrasound L2-malformation of p lacenta, ?placental velez Encounter Details Date Type Department Care Team (Late st Contact Info) Description 12/07/2023 10:45 AM CDT Office Visit [facility] [place] [address] [facility] [address] [place] [address] Danette Rivera MD [address] [place] [address] Karuna Mata MD [address] [place] [address] [address] [place] [address] Multigravida of advanced maternal age [...] on file Legal Sex Female 3:28 AM RETAIL 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 For a detailed report of the ultrasound examination, please see the ultrasound report which can be found under the imaging tab. If you have questions regarding today's evaluation or if we can be of further service, please contact the Maternal- Medicine Center. Karuna Mata MD Linux Network Engineer, DELIVERY DRIVER Maternal- Medicine [phone] (Pager) documented in this encounter Nursing Notes * Agnieszka Monge, RN - 12/07/2023 10:45 AM CDT Patient presents to [facility] for L2 at 29w4d due to malformation of placenta, ?placental velez. Positive movement. Denies LOF, vaginal bleeding or cramping/contractions. SBAR given to [facility] MD, see their note in Epic. [...] trimester documented in this encounter Care Teams Marine Oil Terminal Superintendent Relationship Specialty Start Date End Date No Ref-Primary, Physician PCP - General 11/25/23 documented as of this encounter
--- OUTSIDE RECORDS SUMMARY | 2024-01-25 09:18 | XMS_ITS | Clinical Summary ---
Author Organization [facility] Address [address] [place] [address] Care Team Providers Care Nursery Manager Name Role Phone None Reported, Pcp Primary Care Provider Unavail able Source Comments Patient records contain information from all sites at [facility]. For routine questions regarding patient records, call [phone] during business hours, M-F 8:00 AM - 5:00 PM Central Time. Record requests for emergency care only can be directed to [phone] at any time.[facility] Allergies No known active allergies Medications 25/iron [...] = 0.6 oz pur e alcohol) WEEKLY [facility] Utilities Answer Date Recorded In the past 12 months has e [employer], gas, oil, or water [employer] threatened to shut off services in your [...] any clubs o r organizations such as jainism groups, unions, fraternal or athletic groups, or [...] and heating? Not hard at all 07/11/2021 [facility] [place] of Occupat ional Health - Occupational Stress [...] PM CDT Legal Sex Female 2:11 AM PREFITTER DOORS Gender Identity Female 07/11/2021 7:48 PM CDT [...] Last Done Comments Lipid (Cholesterol) Screening 1985 Cervical/Vaginal Cancer Screening 11/22/2021 11/22/2018 Depression Screening (Annual PHQ-2) 03/14/2023 COVID-19 Vaccine ( season) 2023 02/06/2021, 01/16/2021 Influenza Vaccine (#1) 2023 , 02/08/2020, 01/11/2019, Additional history exists RSV vaccine - (32-36 weeks) or 60+ years (1 - Risk 1-dose series) 12/24/2023 DTaP,Tdap,and Td Vaccines (11 - Td or Tdap) 09/12/2029 09/13/2019, 10/26/2011, 10/02/2008, Additional history exists IPV Vaccines Completed 01/25/1992, 06/13, 04/28/1988, Additional history exists Hepatitis B Vaccines Completed 09/10/1998, 02/11/1998, 01/14/1998, Additional history exists HPV Vaccines Completed 01/10/2007, 10/2006, 08/17/2006, Additional history exists HIV Screening Completed 02/09/2016 Pneumococcal vaccine (0-64 years) Aged Out No longer eligible based on patient's age to complete this topic Procedures Procedure Name Priority Date/Time Associated Diagnosis Comments HIV-1/HIV-2 AB RAPID PT SOURCE, B Routine 02/09/2016 9:53 PM PREFITTER DOORS from Last 3 Months or Most Recently Relevant to Health Maintenance Results * HIV-1/HIV-2 Ab Rapid (02/09/2016 9:53 PM PREFITTER DOORS) HIV-1/HIV-2 Ab Rapid, P Negative Negative [facility] 02/09/2016 9:53 PM PREFITTER DOORS 02/09/2016 9:53 PM PREFITTER DOORS us Martín Woods M.D., M.P.H. LAB MICROBIOLOGY - BLOOD ORDERABLES Final Result [facility] [address] [place] [address], [facility] [place] from Last 3 Months or Most Recently Relevant to Health Maintenance Insurance [employer] [place] EMPLOYEE Care Teams Nursery Manager Relationship Specialty Start Date End Date None Reported, Pcp PCP - General Family Medicine 10/09/22
--- OUTSIDE RECORDS SUMMARY | 2024-01-25 09:18 | XMS_ITS | Referral Summary ---
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 Information Management [address] [place] [address] [address] [place] [address] Scan, Non-Provider 11/25/2023 Transcribe Orders [facility] [place] [address] [place] [phone] Danette Sage MD related condition, antepartum (Primary Dx) 11/25/2023 Transcribe Orders [facility] Maternal Medicine [facility] [address] [place] [phone] Danette Sage MD related condition, antepartum (Primary Dx) 11/24/[address] [facility] Information Management [address] [facility] [address] [place] [address] Scan, Non-Provider from Last 3 Months Social History Tobacco Use Types Packs/Day Years Used Date Smoking Tobacco: Never Assessed Adolescent Education Answer Date Record ed Getting School Help Needed Not on file 12/12 Estimated Date of Delivery Comme nts Yes 02/21/2024 Based on Ultraso und Sex and Gender Information Value Date Recorded Sex Assigned at Not on file Legal Sex Female 3:28 AM TUBER HELPER Gender Identity Not on file Sexual Orientation Not on file Plan of Treatment Not on file Procedures Procedure Name Priority Date/Time Associated Diagnosis Comments [facility] US COMPREHENSIVE SINGLE Routine 12/07/2023 11:13 AM CDT related condition, antepartum from Last 3 Months Results * [facility] US Comprehensive Single (12/07/2023 11:13 AM [...] 2:51 PM CDT ?Comprehensive ----- Pat. Name: BARRIE ADRIÁN ? Study Date: ??12/07/2023 10:20am Pat. NO: ??[id number] ?Referring ??: DANETTE BEATTY Site: ? Job Analyst: Sherry Pimentel RDMS : ??1985 ?Age: ?? 37 ----- INDICATION ----- Placental abnormality on outside ultrasound. AMBeatriz, low risk NIPT. METHOD ----- Transabdominal ultrasound [...] lb 13 ?oz EFW by ? Hadlock ([id number]) Head / Face / Neck Biometry: Dining Room Helper ?5.8 ? mm CM ? 6.0 ? [...] view. RVOT view. LVOT view. 3-vessel view. 8-hfeyak-htdojoa view. Situs. Aortic arch view. Bicaval view. [...] medical record, and communicating with other health medicare nurse and/or care coordination. Please see note for details. Procedure Note Karuna Mata MD - 12/07/2023 Comprehensive ----- Pat. Name: ADRIÁN RAND Study Date: 12/07/2023 10:20am Pat. NO: [id number] Referring MD: DANETTE BEATTY Site: Job Analyst: Sherry Pimentel RDMS : 1985 Age: 37 [...] EFW (lb,oz) 3 lb 13oz EFW by Hadlock([id number]) Head / Face / Neck Biometry: Dining Room Helper 5.8mm CM 6.0mm Nasal bone 8.9mm ANATOMY ----- The following structures appear normal: Head / Neck Cranium. Head size. Head shape.Lateral ventricles. Choroid plexus. Midline falx. Cavum septi pellucidi.Cerebellum. Cisterna magna. Parenchyma. Thalami. Vermis. Neck. Face Lips. Profile. Nose. Maxilla.Mandible. Orbits. Lens. Heart / Thorax 4-chamber view. RVOT view. LVOT view.3-vessel view. 5-wafoun-ojgrhqr view. Situs. Aortic arch view. Bicavalview. Ductal [...] electronic medical record, andcommunicating with other health medicare nurse and/or carecoordination. Please see note for details. [...] of the placenta. us Danette Beatty MD [facility] ORDERABLE S Edited Result - Final from Last 3 Months Insurance [employer] PLAN [email or web address] Care Teams Soda Fountain Manager Relationship Specialty Start Date End Date No Ref-Primary, Physician PCP - General 11/25/23 Karuna Mata MD [address] [facility] [address] [place] [address] Assigned OBGYN Provider 01/04/24
--- OUTSIDE RECORDS SUMMARY | 2024-01-25 09:18 | XMS_ITS | Clinical Summary ---
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; Bilobate placenta, third trimester 12/07/2023 10:15 AM CDT - 12/07/2023 11:59 PM CDT Hospital Encounter [facility] Maternal Medicine [facility] [address] [facility] [address] [place] [phone] Danette Sage MD Sabol, Bethany, MD related condition, antepartum Discharge Disposition: Home or Self Care 12/07/2023 Travel 11/29/2023 PRE VISIT [facility] Medicine [facility] [address] [facility] [address] [place] [phone] Paulina Guardado RN Ultrasound (L2- Malformation of placenta, AMA) 11/25/[address] [facility] Information Management [address] [place] [address] [address] [place] [address] Scan, Non-Provider 11/25/2023 Transcribe Orders [facility] Maternal Medicine [facility] [address] [place] [phone] Danette Sage MD related condition, antepartum (Primary Dx) 11/25/2023 Transcribe Orders [facility] Maternal Medicine [facility] [address] [place] [phone] Danette Sage MD related condition, antepartum (Primary Dx) 11/24/[address] [facility] Information Management [address] [facility] [address] [place] [address] Scan, Non-Provider from Last 3 Months Social History Tobacco Use Types Packs/Day Years Used Date Smoking Tobacco: Never Assessed Adolescent Education Answer Date Record ed Getting School Help Needed Not on file 12/12 Estimated Date of Delivery Comme nts Yes 02/21/2024 Based on Ultraso und Sex and Gender Information Value Date Recorded Sex Assigned at Not on file Legal Sex Female 3:28 AM QUARTER LINING SMOOTHER Gender Identity Not on file Sexual Orientation Not on file Plan of Treatment Health Maintenance Due Date Last Done Comments ADVANCE CARE PLANNING 1985 ANNUAL REVIEW OF HM ORDERS 1986 GLUCOSE 1986 HIV SCREENING 2001 HEPATITIS C SCREENING 2004 YEARLY PREVENTIVE VISIT 11/23/2019 11/22/2018, 10/21 PAP 11/22/2021 11/22/2018 PHQ-2 (once per calendar year) 2023 MATERNAL SCREENING DISCUSSION 07/26/2023 OBGCT (OB) 11/01/2023 COVID-19 Vaccine ( season) 2023 02/06/2021, 01/16/2021 INFLUENZA VACCINE (#1) 2023 , 02/08/2020, 01/11/2019, Additional history exists RSV VACCINE (1 - Risk 1-dose series) 12/27/2023 GROUP B STREP SCREENING 01/24/2024 DTAP/TDAP/TD IMMUNIZATION (13 - Td or Tdap) [...] Procedure Name Priority Date/Time Associated Diagnosis Comments [facility] US COMPREHENSIVE SINGLE Routine 12/07/2023 11:13 AM CDT related condition, antepartum from Last 3 Months Results * [facility] US Comprehensive Single (12/07/2023 11:13 AM [...] ? Study Date: ??12/07/2023 10:20am Pat. NO: ??[id number] ?Referring ??MD: DANETTE BEATTY Site: ? Eap Specialist: Sherry Pimentel RDMS : ??1985 ?Age: [...] lb 13 ?oz EFW by ? Hadlock ([id number]) Head / Face / Neck Biometry: Privacy Analyst ?5.8 ? mm CM ? 6.0 ? [...] view. RVOT view. LVOT view. 3-vessel view. 3-tjesqq-aoshdhy view. Situs. Aortic arch view. Bicaval view. [...] medical record, and communicating with other health neurocritical care physician and/or care coordination. Please see note for details. Procedure Note Karuna Mata MD - 12/07/2023 Comprehensive ----- Pat. Name: ADRIÁN RAND Study Date: 12/07/2023 10:20am Pat. NO: [id number] Referring MD: DANETTE BEATTY Site: Eap Specialist: Sherry Pimentel RDMS : 1985 Age: [...] EFW (lb,oz) 3 lb 13oz EFW by Hadlock([id number]) Head / Face / Neck Biometry: Privacy Analyst 5.8mm CM 6.0mm Nasal bone 8.9mm ANATOMY ----- The following structures appear normal: Head / Neck Cranium. Head size. Head shape.Lateral ventricles. Choroid plexus. Midline falx. Cavum septi pellucidi.Cerebellum. Cisterna magna. Parenchyma. Thalami. Vermis. Neck. Face Lips. Profile. Nose. Maxilla.Mandible. Orbits. Lens. Heart / Thorax 4-chamber view. RVOT view. LVOT view.3-vessel view. 8-ddxoio-mfnvmdv view. Situs. Aortic arch view. Bicavalview. Ductal [...] electronic medical record, andcommunicating with other health neurocritical care physician and/or carecoordination. Please see note for details. [...] of the placenta. us Danette Beatty MD [facility] US ORDERABLE S Edited Result - Final from Last 3 Months Insurance [employer] PLAN [employer] Care Teams Change Management Director Relationship Specialty Start Date End Date No Ref-Primary, Physician PCP - General 11/25/23 Karuna Mata MD [address] [facility] [address] [place], [place] [id number] Assigned OBGYN Provider 01/04/24
--- OUTSIDE RECORDS SUMMARY | 2024-01-25 09:19 | XMS_ITS | Encounter Summary ---
Author Organization [place] Address [address] [place] [address] Care Team Providers Care Commercial Green Retrofit Architect Name Role Phone No Ref-Primary, Physician Primary Care Provider Encounter Details Date Type Department Care Team (Late st Contact Info) Description 11/24/2023 Medical Correspondence [facility] Health Information Management [address] [place] [address] [address] [place] [address] Scan, Non-Provider Social History Tobacco Use Types Packs/Day Years Used Date Smoking Tobacco: Never Assessed Adolescent Education Answer Date Record ed Getting School Help Needed Not on file 12/12 Comments No Sex and Gender Information Value Date Recorded Sex Assigned at Not on file Legal Sex Female 3:28 AM SURVEY COORDINATOR Gender Identity Not on file Sexual Orientation Not on file documented as of this encounter Plan of Treatment Not on file documented as of this encounter Visit Diagnoses Not on filedocumented in this encounter Care Teams Commercial Green Retrofit Architect Relationship Specialty Start Date End Date No Ref-Primary, Physician PCP - General 11/25/23 documented as of this encounter
--- OUTSIDE RECORDS SUMMARY | 2024-01-25 09:19 | XMS_ITS | Encounter Summary ---
Author Organization [facility] Address [address] [place] [address] Care Team Providers Care Payroll Processor Name Role Phone No Ref-Primary, Physician Primary Care Provider Reason for Referral * Consultation (Routine: Next available opening) - Pending Review Specialty Diagnoses / Procedures Referred By Asael gordon Referred To Contact Diagnoses related condition, antepartum Danette Rivera MD [address] [place] [address] Phone: tel: fax: [facility] [place] [address] [facility] [address] [place] [address] Phone: tel: fax: Referral ID Status Reason Start Date Expiration Date V isits Requested Visits Authorized [id number] Pending Review 11/25/2023 11/24/2024 1 1 Question Answer Preferred Location: [facility] [place] NAKUL 02/18/2024 Ultrasound Comprehensive US (>than 18 [...] No fax [facility] - Danette Rivera - [phone] Comments There is no height or weight [...] (Latest Contact Info) Description 11/25/2023 Transcribe Orders [facility] [place] [address] [facility] [address] [place] [address] Danette Rivera MD [address] [place] [address] related condition, antepartum (Primary Dx) Social History Tobacco Use Types Packs/Day Years Used Date Smoking Tobacco: Never Assessed Adolescent Education Answer Date Record ed Getting School Help Needed Not on file 12/12 Comments No Sex and Gender Information Value Date Recorded Sex Assigned at Not on file Legal Sex Female 3:28 AM GROCERY CLERK SELLING Gender Identity Not on file Sexual Orientation [...] Primary documented in this encounter Care Teams Payroll Processor Relationship Specialty Start Date End Date No Ref-Primary, Physician PCP - General 11/25/23 documented as of this encounter
--- OUTSIDE RECORDS SUMMARY | 2024-01-25 09:19 | XMS_ITS | Encounter Summary ---
Author Organization [place] Address [address] [place] [address] Care Team Providers Care Outside Parts Sales Name Role Phone No Ref-Primary, Physician Primary Care Provider Reason for Referral * Diagnostic Imaging Ultrasound (Routine) - Pending Review Specialty Diagnoses / Procedures Referred By Contac t Referred To Contact Radiology. Diagnoses related condition, antepartum Procedures [facility] US Comprehensive Single Danette Beatty MD [address] [place] [address] Phone: tel: fax: Referral ID Status Reason Start Date Expiration Date V isits Requested Visits Authorized [id number] Pending Review 11/25/2023 11/24/2024 1 1 Encounter Details Date Type Department Care Team (Latest Contact Info) Description 11/25/[address] [facility] Maternal Medicine Center [place] [address] [place] [address] Danette Beatty MD [address] [place] [address] related condition, antepartum (Primary Dx) Social History Tobacco Use Types Packs/Day Years Used Date Smoking Tobacco: Never Assessed Adolescent Education Answer Date Record ed Getting School Help Needed Not on file 12/12 Comments No Sex and Gender Information Value Date Recorded Sex Assigned at Not on file Legal Sex Female 3:28 AM ARTS AND CRAFTS TEACHER Gender Identity Not on file Sexual Orientation Not on file documented as of this encounter Plan of Treatment Not on file documented as of this encounter Results * [facility] Comprehensive Single (12/07/2023 11:13 AM CDT) Anatomical [...] ? Study Date: ??12/07/2023 10:20am Pat. NO: ??[id number] ?Referring ??MD: DANETTE DON-BAUTISTA Site: ? Pig Handler: Sherry PimentelLUISA : ??1985 ?Age: ?? 37 [...] ?3 lb 13 ?oz [facility]FW [facility] ? [id number] Head / Face / Neck Biometry: House Nurse ?5.8 ? mm CM ? 6.0 ? [...] view. RVOT view. LVOT view. 3-vessel view. 4-fgknbt-abtpjih view. Situs. Aortic arch view. Bicaval view. [...] medical record, and communicating with other health family day carer and/or care coordination. Please see note for details. Procedure Note Karuna Mata MD - 12/07/2023 Comprehensive ----- Pat. Name: ADRIÁN RAND Study Date: 12/07/2023 10:20am Pat. NO: [id number] Referring MD: DANETTE BEATTY Site: Pig Handler: Sherry Pimentel RDMS : 1985 Age: 37 [...] EFW (lb,oz) 3 lb 13oz EFW by Hadlock([id number]) Head / Face / Neck Biometry: House Nurse 5.8mm CM 6.0mm Nasal bone 8.9mm ANATOMY ----- The following structures appear normal: Head / Neck Cranium. Head size. Head shape.Lateral ventricles. Choroid plexus. Midline falx. Cavum septi pellucidi.Cerebellum. Cisterna magna. Parenchyma. Thalami. Vermis. Neck. Face Lips. Profile. Nose. Maxilla.Mandible. Orbits. Lens. Heart / Thorax 4-chamber view. RVOT view. LVOT view.3-vessel view. 9-hmisvu-izfadlu view. Situs. Aortic arch view. Bicavalview. Ductal [...] electronic medical record, andcommunicating with other health family day carer and/or carecoordination. Please see note for details. [...] of the placenta. us Danette Beatty MD [facility] ORDERABLE S Edited Result - Final documented in this encounter Visit Diagnoses Diagnosis related condition, antepartum- Primary related condition, antepartum documented in this encounter Care Teams Outside Parts Sales Relationship Specialty Start Date End Date No Ref-Primary, Physician PCP - General 11/25/23 documented as of this encounter
== END 2024-01-25 09:17 | disposition home or self-care (01) ==
PROVIDERS: PCP Nurse Practitioner Family; Visit Provider Obstetrics & Gynecology
DX: O43.103 Malformation of placenta, unspecified, third trimester (principal); O09.523 Supervision of elderly multigravida, third trimester; Z3A.36 36 weeks gestation of pregnancy
CPT/HCPCS: 76819

== ENCOUNTER 2024-01-25 10:08 | Outpatient (CLI) | payer OTHER, SELFPAY ==
--- OUTSIDE RECORDS SUMMARY | 2024-01-25 10:10 | XMS_ITS | Encounter Summary ---
Author Organization [place] Address [facility] [place] [address] Care Team Providers Care Patient Placement Coordinator Name Role Phone No Ref-Primary, Physician Primary Care Provider Reason for Visit * Reason Comments Ultrasound L2-malformation of p lacenta, ?placental velez Encounter Details Date Type Department Care Team (Late st Contact Info) Description 12/07/2023 10:45 AM CDT Office Visit [facility] M[facility] Medicine [facility] [place] [address] [place] [address] Danette Rivera MD [address] [place] [address] Karuna Mata MD [address] [place] [address] [address] [place] [address] Multigravida of advanced maternal age [...] on file 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 today. For a detailed report of the ultrasound examination, please see the ultrasound report which can be found under the imaging tab. If you have questions regarding today's evaluation or if we can be of further service, please contact the Maternal- Medicine Center. Karuna Mata MD Workforce Consultant, GEAR SHAPER SET UP OPERATOR Maternal- Medicine [phone] (Pager) documented in this encounter Nursing Notes * Agnieszka Monge, RN - 12/07/2023 10:45 AM CDT Patient presents to [facility] for L2 at 29w4d due to malformation of placenta, ?placental velez. Positive movement. Denies LOF, vaginal bleeding or cramping/contractions. SBAR given to [facility] MD, see their note in Epic. [...] trimester documented in this encounter Care Teams Patient Placement Coordinator Relationship Specialty Start Date End Date No Ref-Primary, Physician PCP - General 11/25/23 documented as of this encounter
--- OUTSIDE RECORDS SUMMARY | 2024-01-25 10:10 | XMS_ITS | Encounter Summary ---
Author Organization [place] Address [address] [place] [address] Care Team Providers Care Mica Washer Gluer Name Role Phone No Ref-Primary, Physician Primary Care Provider Encounter Details Date Type Department Care Team (Late st Contact Info) Description 11/24/2023 Medical Correspondence [facility] Health Information Management [address] [place] [address] [address] [place] [address] Scan, Non-Provider Social History Tobacco Use Types Packs/Day Years Used Date Smoking Tobacco: Never Assessed Adolescent Education Answer Date Record ed Getting School Help Needed Not on file 12/12 Comments No Sex and Gender Information Value Date Recorded Sex Assigned at Not on file 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
--- OUTSIDE RECORDS SUMMARY | 2024-01-25 10:10 | XMS_ITS | Referral Summary ---
Author Organization [place] Address [address] [place] [address] Care Team Providers Care Ase Master Mechanic Name Role Phone No Ref-Primary, Physician Primary Care Provider Karuna Mata MD Unavailable [phone] Encounters Date Type Department Care Team Description 12/07/2023 Travel 12/07/2023 10:45 AM CDT Office Visit [facility] Maternal Medicine [facility] [address] [place] [phone] Danette Sgae MD Sabol, Bethany, MD Multigravida of advanced maternal age in second trimester (Primary Dx); 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; Bilobate placenta, third trimester 12/07/2023 10:15 AM CDT - 12/07/2023 11:59 PM CDT Hospital Encounter [facility] Maternal Medicine [facility] [address] [place] [phone] Danette Sage MD Sabol, Bethany, MD related condition, antepartum Discharge Disposition: Home or Self Care 11/29/2023 PRE VISIT [facility] Medicine [facility] [address] [place] [phone] Paulina Guardado RN Ultrasound (L2- Malformation of placenta, AMA) 11/25/2023 Medical Correspondence [facility] Information Management [address] [place] [address] [address] [place] [address] Scan, Non-Provider 11/25/2023 Transcribe Orders [facility] M[facility] Medicine [facility] [place] [address] [place] [address] Danette Sage MD related condition, antepartum (Primary Dx) 11/25/2023 Transcribe Orders [facility] Maternal Medicine [facility] [address] [place] [phone] Danette Sage MD related condition, antepartum (Primary Dx) 11/24/2023 Medical Correspondence [facility] Information Management [address] 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 Study Date: ??12/07/2023 10:20am Pat. NO: ??[id number] ?Referring ??: DANETTE BEATTY Site: ? Hoop Punch Operator Helper: Sherry Pimentel RDMS : ??1985 [...] lb 13 ?oz EFW by ? Hadlock ([id number]) Head / Face / Neck Biometry: Dispatcher Street Department ?5.8 ? mm CM ? 6.0 ? [...] view. RVOT view. LVOT view. 3-vessel view. 7-ldwkpm-aptrbfx view. Situs. Aortic arch view. Bicaval view. [...] record, and communicating with other health career guidance counselor and/or care coordination. Please see note for details. Procedure Note Karuna Mata MD - 12/07/2023 Comprehensive ----- Pat. Name: ADRIÁN RAND Study Date: 12/07/2023 10:20am Pat. NO: [id number] Referring MD: DANETTE BEATTY Site: Hoop Punch Operator Helper: Sherry Pimentel RDMS : 1985 [...] EFW (lb,oz) 3 lb 13oz EFW by Hadlock([id number]) Head / Face / Neck Biometry: Dispatcher Street Department 5.8mm CM 6.0mm Nasal bone 8.9mm ANATOMY ----- The following structures appear normal: Head / Neck Cranium. Head size. Head shape.Lateral ventricles. Choroid plexus. Midline falx. Cavum septi pellucidi.Cerebellum. Cisterna magna. Parenchyma. Thalami. Vermis. Neck. Face Lips. Profile. Nose. Maxilla.Mandible. Orbits. Lens. Heart / Thorax 4-chamber view. RVOT view. LVOT view.3-vessel view. 2-xdmhhx-xqbbbyy view. Situs. Aortic arch view. Bicavalview. Ductal [...] medical record, andcommunicating with other health career guidance counselor and/or carecoordination. Please see note for details. [...] the placenta. us Danette Beatty MD [facility] S Edited Result - Final from Last 3 Months Insurance [employer] PLAN Offerial Care Teams Ase Master Mechanic Relationship Specialty Start Date End Date No Ref-Primary, Physician PCP - General 11/25/23 Karuna Mata MD [address] [facility] [address] [place] [address] Assigned OBGYN Provider 01/04/24
--- OUTSIDE RECORDS SUMMARY | 2024-01-25 10:10 | XMS_ITS | Encounter Summary ---
Author Organization [place] Address [address] [place] [address] Care Team Providers Care Creative Writing Professor Name Role Phone No Ref-Primary, Physician Primary Care Provider Reason for Referral * Diagnostic Imaging Ultrasound (Routine) - Pending Review Specialty Diagnoses / Procedures Referred By Marquiseac t Referred To Contact Radiology. Diagnoses related condition, antepartum Procedures [facility] US Comprehensive Single Danette Beatty MD [address] [place] [address] Phone: tel: fax: Referral ID Status Reason Start Date Expiration Date V isits Requested Visits Authorized [id number] Pending Review 11/25/2023 11/24/2024 1 1 Reason for Visit * Diagnostic Imaging Ultrasound (Routine) - Pending Review Specialty Diagnoses / Procedures Referred By Marquiseac t Referred To Contact Radiology. Diagnoses related condition, antepartum Procedures [facility] US Comprehensive Single Danette Beatty MD [address] [place] [address] Phone: tel: fax: Referral ID Status Reason Start Date Expiration Date V isits Requested Visits Authorized [id number] Pending Review 11/25/2023 11/24/2024 1 1 Encounter Details Date Type Department Care Team (Latest Contact Info) Description 12/07/2023 10:15 AM CDT - 12/07/2023 11:59 PM CDT Hospital Encounter [facility] Maternal Medicine 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 Study Date: ??12/07/2023 10:20am Pat. NO: ??[id number] ?Referring ??MD: DANETTE BEATTY Site: ? Lease Purchase Truck Driver: Sherry Pimentel RDMS : ??1985 ?Age: ?? [...] lb 13 ?oz EFW by ? Hadlock ([id number]) Head / Face / Neck Biometry: Hydrometer Tester ?5.8 ? mm CM ? 6.0 ? [...] view. RVOT view. LVOT view. 3-vessel view. 9-otgxtg-mbueutd view. Situs. Aortic arch view. Bicaval view. [...] medical record, and communicating with other health healthcare risk control consultant and/or care coordination. Please see note for details. Procedure Note Karuna Mata MD - 12/07/2023 Comprehensive ----- Pat. Name: ADRIÁN RAND Study Date: 12/07/2023 10:20am Pat. NO: [id number] Referring MD: DANETTE BEATTY Site: Lease Purchase Truck Driver: Sherry Pimentel RDMS : 1985 Age: 37 [...] EFW (lb,oz) 3 lb 13oz EFW by Hadlock([id number]) Head / Face / Neck Biometry: Hydrometer Tester 5.8mm CM 6.0mm Nasal bone 8.9mm ANATOMY ----- The following structures appear normal: Head / Neck Cranium. Head size. Head shape.Lateral ventricles. Choroid plexus. Midline falx. Cavum septi pellucidi.Cerebellum. Cisterna magna. Parenchyma. Thalami. Vermis. Neck. Face Lips. Profile. Nose. Maxilla.Mandible. Orbits. Lens. Heart / Thorax 4-chamber view. RVOT view. LVOT view.3-vessel view. 8-jrmvuj-flcqcli view. Situs. Aortic arch view. Bicavalview. Ductal [...] electronic medical record, andcommunicating with other health healthcare risk control consultant and/or carecoordination. Please see note for details. [...] of the placenta. us Danette Beatty MD [facility] ORDER[facility] S Edited Result - Final documented in this encounter Visit Diagnoses Diagnosis related condition, antepartum documented in this encounter Care Teams Creative Writing Professor Relationship Specialty Start Date End Date No Ref-Primary, Physician PCP - General 11/25/23 documented as of this encounter
--- OUTSIDE RECORDS SUMMARY | 2024-01-25 10:10 | XMS_ITS | Encounter Summary ---
Author Organization [place] Address [address] [place] [address] Care Team Providers Care Library Media Assistant Name Role Phone No Ref-Primary, Physician Primary Care Provider Reason for Referral * Consultation (Routine: Next available opening) - Pending Review Specialty Diagnoses / Procedures Referred By Asael gordon Referred To Contact Diagnoses related condition, antepartum Danette Rivera MD [address] [place] [address] Phone: tel: fax: [facility] Maternal Medicine Center [place] [address] [place] [address] Phone: tel: fax: Referral ID Status Reason Start Date Expiration Date V isits Requested Visits Authorized [id number] Pending Review 11/25/2023 11/24/2024 1 1 Question Answer Preferred Location: [facility] [place] 02/18/2024 Ultrasound Comprehensive US (>than 18 [...] No fax [facility] - Danette Rivera - [phone] Comments There is no height or weight [...] (Latest Contact Info) Description 11/25/2023 Transcribe Orders [facility] Maternal Medicine Center [place] [address] [place] [address] Danette Rivera MD [address] [place] [address] related condition, antepartum (Primary Dx) Social History Tobacco Use Types Packs/Day Years Used Date Smoking Tobacco: Never Assessed Adolescent Education Answer Date Record ed Getting School Help Needed Not on file 12/12 Comments No Sex and Gender Information Value Date Recorded Sex Assigned at Not on file 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
--- OUTSIDE RECORDS SUMMARY | 2024-01-25 10:10 | XMS_ITS | Encounter Summary ---
Author Organization [place] Address [address] [place] [address] Care Team Providers Care Glass Furnace Tender Name Role Phone No Ref-Primary, Physician Primary Care Provider Reason for Referral * Diagnostic Imaging Ultrasound (Routine) - Pending Review Specialty Diagnoses / Procedures Referred By Contac t Referred To Contact Radiology. Diagnoses related condition, antepartum Procedures [facility] US Comprehensive Single Danette Beatty MD [address] [place] [address] Phone: tel: fax: Referral ID Status Reason Start Date Expiration Date V isits Requested Visits Authorized [id number] Pending Review 11/25/2023 11/24/2024 1 1 Encounter Details Date Type Department Care Team (Latest Contact Info) Description 11/25/2023 Transcribe Orders [facility] Maternal Medicine Center [place] [address] [facility] [address] [place] [address] Danette Beatty MD [address] [place] [address] related condition, antepartum (Primary Dx) Social History Tobacco Use Types Packs/Day Years Used Date Smoking Tobacco: Never Assessed Adolescent Education Answer Date Record ed Getting School Help Needed Not on file 12/12 Comments No Sex and Gender Information Value Date Recorded Sex Assigned at Not on file 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 Comprehensive Single (12/07/2023 11:13 AM CDT) [...] ? Study Date: ??12/07/2023 10:20am Pat. NO: ??[id number] ?Referring ??MD: DANETTE DON-BAUTISTA Site: ? Enrollment Management Manager: Sherry PimentelLUISA : ??1985 ?Age: ?? 37 [...] ?3 lb 13 ?oz EFW by ? [facility] ([id number]) Head / Face / Neck Biometry: Pit Boss ?5.8 ? mm CM ? 6.0 ? [...] view. RVOT view. LVOT view. 3-vessel view. 9-ievntp-woywiuy view. Situs. Aortic arch view. Bicaval view. [...] record, and communicating with other health career law clerk and/or care coordination. Please see note for details. Procedure Note Karuna Mata MD - 12/07/2023 Comprehensive ----- Pat. Name: ADRIÁN RAND Study Date: 12/07/2023 10:20am Pat. NO: [id number] Referring MD: DANETTE BEATTY Site: Enrollment Management Manager: Sherry Pimentel RDMS : 1985 Age: 37 [...] EFW (lb,oz) 3 lb 13oz EFW by Hadlock([id number]) Head / Face / Neck Biometry: Pit Boss 5.8mm CM 6.0mm Nasal bone 8.9mm ANATOMY ----- The following structures appear normal: Head / Neck Cranium. Head size. Head shape.Lateral ventricles. Choroid plexus. Midline falx. Cavum septi pellucidi.Cerebellum. Cisterna magna. Parenchyma. Thalami. Vermis. Neck. Face Lips. Profile. Nose. Maxilla.Mandible. Orbits. Lens. Heart / Thorax 4-chamber view. RVOT view. LVOT view.3-vessel view. 8-umaquj-rxsuzvu view. Situs. Aortic arch view. Bicavalview. Ductal [...] medical record, andcommunicating with other health career law clerk and/or carecoordination. Please see note for details. [...] of the placenta. us Danette Beatty MD [facility] ORDERABLE S Edited Result - Final documented in this encounter Visit Diagnoses Diagnosis related condition, antepartum- Primary related condition, antepartum documented in this encounter Care Teams Glass Furnace Tender Relationship Specialty Start Date End Date No Ref-Primary, Physician PCP - General 11/25/23 documented as of this encounter
--- OUTSIDE RECORDS SUMMARY | 2024-01-25 10:10 | XMS_ITS | Encounter Summary ---
Author Organization [place] Address [address] [place] [address] Care Team Providers Care Executive Assistant Name Role Phone No Ref-Primary, Physician Primary Care Provider Encounter Details Date Type Department Care Team (Late st Contact Info) Description 11/25/2023 Medical Correspondence [facility] Health Information Management [address] [place] [address] [address] [place] [address] Scan, Non-Provider Social History Tobacco Use Types Packs/Day Years Used Date Smoking Tobacco: Never Assessed Adolescent Education Answer Date Record ed Getting School Help Needed Not on file 12/12 Comments No Sex and Gender Information Value Date Recorded Sex Assigned at Not on file 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
--- OUTSIDE RECORDS SUMMARY | 2024-01-25 10:10 | XMS_ITS | Encounter Summary ---
Author Organization [place] Address [address] [place] [address] Care Team Providers Care Executive Sous Chef Name Role Phone No Ref-Primary, Physician Primary [...] on file Legal Sex Female 3:28 AM EVP STRATEGY Gender Identity Not on file Sexual Orientation Not on file documented as of this encounter Plan of Treatment Not on file documented as of this encounter Visit Diagnoses Not on filedocumented in this encounter Care Teams Executive Sous Chef Relationship Specialty Start Date End Date No Ref-Primary, Physician PCP - General 11/25/23 documented as of this encounter
--- OUTSIDE RECORDS SUMMARY | 2024-01-25 10:10 | XMS_ITS | Clinical Summary ---
Author Organization [facility] Address [address] [place] [address] Care Team Providers Care Polish Maker Name Role Phone None Reported, Pcp Primary Care Provider Unavail able Source Comments Patient records contain information from all sites at [facility]. For routine questions regarding patient records, call [phone] during business hours, M-F 8:00 AM - 5:00 PM Central Time. Record requests for emergency care only can be directed to [phone] at any time.[facility] Allergies No known active allergies Medications 25/iron [...] = 0.6 oz pur e alcohol) WEEKLY [facility] Utilities Answer Date Recorded In the past 12 months has e [employer], gas, oil, or water [employer] threatened to shut off services in your [...] often do you attend chur ch or caodaism services? 1 to 4 times per year 07/11/2021 Do you belong to any clubs o r organizations such as mandaeism groups, unions, fraternal or athletic groups, or [...] and heating? Not hard at all 07/11/2021 [facility] [place] of Occupat ional Health - Occupational Stress [...] PM CDT Legal Sex Female 2:11 AM FUNERAL SERVICE MANAGER Gender Identity Female 07/11/2021 7:48 PM CDT [...] PT SOURCE, B Routine 02/09/2016 9:53 PM FUNERAL SERVICE MANAGER from Last 3 Months or Most Recently Relevant to Health Maintenance Results * HIV-1/HIV-2 Ab Rapid (02/09/2016 9:53 PM FUNERAL SERVICE MANAGER) HIV-1/HIV-2 Ab Rapid, P Negative Negative [facility] 02/09/2016 9:53 PM FUNERAL SERVICE MANAGER 02/09/2016 9:53 PM FUNERAL SERVICE MANAGER us Martín Woods M.D., M.P.H. LAB MICROBIOLOGY - BLOOD ORDERABLES Final Result [facility] [address] [place] [address], [facility] from Last 3 Months or Most Recently Relevant to Health Maintenance Insurance [employer] EMPLOYEE Care Teams Polish Maker Relationship Specialty Start Date End Date None Reported, Pcp PCP - General Family Medicine 10/09/22
--- OUTSIDE RECORDS SUMMARY | 2024-01-25 10:10 | XMS_ITS ---
Author Organization [facility] Address [address] [place] [address] Care Team Providers Care Teradata Solution Architect Name Role Phone Unavailable Unavailable Unavailable Surgery Details Not on file Complications Check Surgery Details section. Procedure Estimated Blood Loss Check Surgery Details section. Procedure Findings Check Surgery Details section. Procedure Specimens Taken Check Surgery Details section.
--- OUTSIDE RECORDS SUMMARY | 2024-01-25 10:10 | XMS_ITS | Encounter Summary ---
Author Organization [facility] Address [address] [place] [address] Care Team Providers Care Medical Office Administrator Name Role Phone None Reported, Pcp Primary Care Provider Unavail able Encounter Details Date Type Department Care Team (Late st Contact Info) Description 10/06/2023 Orders Only Department of Obstetrics and Gynecology in [place], [place] [address] [place] [phone] Sarah Kumar R.NFabricio [address] [place] [phone] Examination Other Normal Second Trimester (HCC) (Primary Dx) Social History Tobacco Use Types Packs/Day Years Used Date Smoking Tobacco: Never Smokeless Tobacco: Never Alcohol Use Standard Drinks/Week Comments Not Currently 0 (1 standard drink = 0.6 oz pur e alcohol) WEEKLY [facility] Utilities Answer Date Recorded In the past 12 months has [facility] [employer], gas, oil, or water [employer] threatened to shut off services in your [...] often do you attend chur ch or presybeterian services? 1 to 4 times per year 07/11/2021 Do you belong to any clubs o r organizations such as tenriism groups, unions, fraternal or athletic groups, or [...] and heating? Not hard at all 07/11/2021 [facility] [place] of Occupat ional Health - Occupational Stress [...] your living situation today? I have a [facility] place to live 09/26/2023 Education Answer Date [...] PM CDT Legal Sex Female 2:11 AM PUBLIC BATH ATTENDANT Gender Identity Female 07/11/2021 7:48 PM CDT Sexual Orientation Straight 07/11/2021 7: 48 PM CDT documented as of this encounter Plan of Treatment Not on file documented as of this encounter Visit Diagnoses Diagnosis Examination Other Normal Second Trimester (HCC)- Primary documented in this encounter Care Teams Medical Office Administrator Relationship Specialty Start Date End Date None Reported, Pcp PCP - General Family Medicine 10/09/22 documented as of this encounter
--- OUTSIDE RECORDS SUMMARY | 2024-01-25 10:10 | XMS_ITS | Clinical Summary ---
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; Bilobate placenta, third trimester 12/07/2023 10:15 AM CDT - 12/07/2023 11:59 PM CDT Hospital Encounter [facility] [address] [place] [phone] Danette Sage MD Sabol, Bethany, MD related condition, antepartum Discharge Disposition: Home or Self Care 12/07/2023 Travel 11/29/2023 PRE VISIT [facility] [address] [place] [phone] Paulina Guardado RN Ultrasound (L2- Malformation of placenta, AMA) 11/25/2023 Medical Correspondence [facility] Information Management [address] [place] [address] [address] [place] [address] Scan, Non-Provider 11/25/2023 Transcribe Orders [facility] [address] [place] [address] Danette Sage MD related condition, antepartum (Primary Dx) 11/25/2023 Transcribe Orders [facility] [address] [place] [phone] Danette Sage MD related condition, antepartum (Primary Dx) 11/24/2023 Medical Correspondence [facility] Information Management [address] [place] [address] Scan, Non-Provider from Last 3 Months Social [...] file 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 Study Date: ??12/07/2023 10:20am Pat. NO: ??[id number] ?Referring ??MD: DANETTE BEATTY Site: ? Photographic Laboratory Technician: Sherry Pimentel RDMS : ??1985 ?Age: ?? [...] lb 13 ?oz EFW by ? Hadlock ([id number]) Head / Face / Neck Biometry: Knurling Machine Tender ?5.8 ? mm CM ? 6.0 ? [...] view. RVOT view. LVOT view. 3-vessel view. 1-omfumu-bikhvhv view. Situs. Aortic arch view. Bicaval view. [...] medical record, and communicating with other health resident caregiver and/or care coordination. Please see note for details. Procedure Note Karuna Mata MD - 12/07/2023 Comprehensive ----- Pat. Name: ADRIÁN RAND Study Date: 12/07/2023 10:20am Pat. NO: [id number] Referring MD: DANETTE BEATTY Site: Photographic Laboratory Technician: Sherry Pimentel RDMS : 1985 Age: 37 [...] EFW (lb,oz) 3 lb 13oz EFW by Hadlock([id number]) Head / Face / Neck Biometry: Knurling Machine Tender 5.8mm CM 6.0mm Nasal bone 8.9mm ANATOMY ----- The following structures appear normal: Head / Neck Cranium. Head size. Head shape.Lateral ventricles. Choroid plexus. Midline falx. Cavum septi pellucidi.Cerebellum. Cisterna magna. Parenchyma. Thalami. Vermis. Neck. Face Lips. Profile. Nose. Maxilla.Mandible. Orbits. Lens. Heart / Thorax 4-chamber view. RVOT view. LVOT view.3-vessel view. 9-qfjwzh-kowlwfa view. Situs. Aortic arch view. Bicavalview. Ductal [...] electronic medical record, andcommunicating with other health resident caregiver and/or carecoordination. Please see note for details. [...] of the placenta. us Danette Beatty MD [facility] US ORDERABLE S Edited Result - Final from Last 3 Months Insurance [employer] PLAN [facility] Care Teams Director Equipment Relationship Specialty Start Date End Date No Ref-Primary, Physician PCP - General 11/25/23 Karuna Mata MD [address] [facility] [address] [place], [place] [id number] Assigned OBGYN Provider 01/04/24
--- OUTSIDE RECORDS SUMMARY | 2024-01-25 10:10 | XMS_ITS | Encounter Summary ---
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
--- OUTSIDE RECORDS SUMMARY | 2024-01-25 10:10 | XMS_ITS | Referral Summary ---
Author Organization [facility] Address [address] [place] [address] Care Team Providers Care Shag Truck Driver Name Role Phone None Reported, Pcp Primary Care Provider Unavail able Source Comments Patient records contain information from all sites at [facility]. For routine questions regarding patient records, call [phone] during business hours, M-F 8:00 AM - 5:00 PM Central Time. Record requests for emergency care only can be directed to [phone] at any time.[facility] Allergies No known active allergies Medications [...] = 0.6 oz pur e alcohol) WEEKLY [facility] Utilities Answer Date Recorded In the [...] week 07/11/2021 How often do you attend [facility] or episcopalian services? 1 to 4 times per year 07/11/2021 Do you belong to any clubs o r organizations such as latter day groups, unions, fraternal or athletic groups, or [...] and heating? 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 LAB MICROBIOLOGY - BLOOD ORDERABLES Final Result [facility] [address] [place] [address], [facility] from Last 3 Months or Most Recently Relevant to Health Maintenance Insurance [employer] [place] EMPLOYEE Care Teams Shag Truck Driver Relationship Specialty Start Date End Date None Reported, Pcp PCP - General Family Medicine 10/09/22
[2024-01-26 13:37] LABS: Strep B DNA Probe Negative (Negative)
[2024-01-26 13:41] LABS: Strep B Susceptibility Needed? No
== END 2024-01-25 10:09 | disposition home or self-care (01) ==
LOC: NFLDREF 10:08
PROVIDERS: PCP Nurse Practitioner Family; Visit Provider Obstetrics & Gynecology
DX: O43.103 Malformation of placenta, unspecified, third trimester (principal); Z3A.36 36 weeks gestation of pregnancy
CPT/HCPCS: 87081; 87653

== ENCOUNTER 2024-01-31 09:17 | Outpatient (CLI) | payer OTHER, SELFPAY ==
--- NOTE | 2024-01-31 09:15 | CRLHL7_ITS ---
For Patients: As a result of the Century Cures Act, medical imaging exams and procedure reports are released immediately into your electronic medical record. You may view this report before your referring provider. If you have questions, please contact your health care provider. INDICATION: Placental malformation. TECHNIQUE: Real time borjas scale imaging of the fetus was performed. COMPARISON: 01/25/2024, 01/04/2024 FINDINGS: Sonographic imaging demonstrates a single living intrauterine gestation. Fetus demonstrates a regular cardiac rate of 144 beats per minute. Fetus has a vertex position. The placenta lies left posterior. Placental velez measures 8.3 x 4.8 x 2.5 cm, previously measuring 6.8 x 5.8 x 1.0 cm amniotic fluid volume appears normal and there is a single deepest pocket of 4.9 cm. The estimated weight is 3713gm which lies at the 96th %. On the prior OB ultrasound dated 01/04/2024 the estimated weight was at the 72nd percentile. BPD 61st percentile. HC is 74th percentile. AC greater than 97th percentile. FL 25th percentile. The fetus was active and demonstrated normal breathing movements. There was normal flexion and extension of the trunk and extremities. IMPRESSION: Normal biophysical profile score 8/8. Sonographic gestational age 38 weeks 1 day and sonographic due date of 02/13/2024. Sonographic age 8 days ahead of the clinical age. Estimated weight 96th percentile. Abdominal circumference greater than 97th percentile. Placental velez increased in size now measuring 8.3 x 4.8 x 2.5 cm. Dictated by Conrad Black MD @ 01/31/2024 11:05:12 AM (Electronically Signed)
--- OUTSIDE RECORDS SUMMARY | 2024-01-31 09:18 | XMS_ITS | Clinical Summary ---
Author Organization [facility] Address [address] [place] [address] Care Team Providers Care Auto Service Advisor Name Role Phone None Reported, Pcp Primary Care Provider Unavail able Source Comments Patient records contain information from all sites at [facility]. For routine questions regarding patient records, call [phone] during business hours, M-F 8:00 AM - 5:00 PM Central Time. Record requests for emergency care only can be directed to [phone] at any time.[facility] Allergies No known active allergies Medications 25/iron [...] In the past 12 months has e [employer], gas, oil, or water [employer] threatened to shut off services in your [...] often do you attend chur ch or congregation services? 1 to 4 times per year 07/11/2021 Do you belong to any clubs o r organizations such as jain groups, unions, fraternal or athletic groups, or [...] at all 07/11/2021 [facility] [place] of Occupat ional Health - Occupational Stress [...] PM CDT Legal Sex Female 2:11 AM RESOURCE ENGINEER Gender Identity Female 07/11/2021 7:48 PM CDT Sexual Orientation Straight 07/11/2021 7: 48 PM CDT Last Filed Vital Signs Vital Sign Reading Time Taken Comments Blood Pressure 128/79 09/29/2023 10:07 AM CDT Pulse 83 09/29/2023 10:07 AM CDT Temperature 37 C (98.6 F) 09/29/2023 10:07 AM CDT Respiratory Rate 16 [...] 2023 , 02/08/2020, 01/11/2019, Additional history exists DTaP,Tdap,and Td Vaccines (11 - Td or Tdap) 09/12/2029 09/13/2019, 10/26/2011, 10/02/2008, Additional history exists IPV Vaccines Completed 01/25/1992, 06/13, 04/28/1988, Additional history exists Hepatitis B Vaccines Completed 09/10/1998, 02/11/1998, 01/14/1998, Additional history exists HPV Vaccines Completed 01/10/2007, 1010/2006, 08/17/2006, Additional history exists HIV Screening Completed 02/09/2016 Pneumococcal vaccine (0-64 years) Aged Out No longer eligible based on patient's age to complete this topic RSV vaccine - (32-36 weeks) or 60+ years (No Doses Required) Completed Procedures Procedure Name Priority Date/Time Associated Diagnosis Comments HIV-1/HIV-2 AB RAPID PT SOURCE, B Routine 02/09/2016 9:53 PM RESOURCE ENGINEER from Last 3 Months or Most Recently Relevant to Health Maintenance Results * HIV-1/HIV-2 Ab Rapid (02/09/2016 9:53 PM RESOURCE ENGINEER) HIV-1/HIV-2 Ab Rapid, P Negative Negative [facility] 02/09/2016 9:53 PM RESOURCE ENGINEER 02/09/2016 9:53 PM RESOURCE ENGINEER us Martín Woods M.D., M.P.H. LAB MICROBIOLOGY - BLOOD ORDERABLES Final Result [facility] [address] [place] [address], [facility] from Last 3 Months or Most Recently Relevant to Health Maintenance Insurance [employer] [place] [employer] EMPLOYEE Care Teams Auto Service Advisor Relationship Specialty Start Date End Date None Reported, Pcp PCP - General Family Medicine 10/09/22
--- OUTSIDE RECORDS SUMMARY | 2024-01-31 09:19 | XMS_ITS | Referral Summary ---
Author Organization [facility] Address [address] [place] [address] Care Team Providers Care Deputy Assessor Name Role Phone None Reported, Pcp Primary Care Provider Unavail able Source Comments Patient records contain information from all sites at [facility]. For routine questions regarding patient records, call [phone] during business hours, M-F 8:00 AM - 5:00 PM Central Time. Record requests for emergency care only can be directed to [phone] at any time.[facility] Allergies No known active allergies Medications 25/iron [...] = 0.6 oz pur e alcohol) WEEKLY [facility] Utilities Answer Date Recorded In the [...] week 07/11/2021 How often do you attend [facility] or judaism services? 1 to 4 times per year [...] and heating? 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 02/09/2016 9:53 PM CANAL EQUIPMENT MAINTENANCE SUPERVISOR 02/09/2016 9:53 PM CANAL EQUIPMENT MAINTENANCE SUPERVISOR us Martín Woods M.D., M.P.H. LAB MICROBIOLOGY - BLOOD ORDERABLES Final Result [facility] [address] [place] [address], [facility] from Last 3 Months or Most Recently Relevant to Health Maintenance Insurance [employer] EMPLOYEE Care Teams Deputy Assessor Relationship Specialty Start Date End Date None Reported, Pcp PCP - General Family Medicine 10/09/22
--- OUTSIDE RECORDS SUMMARY | 2024-01-31 09:19 | XMS_ITS | Encounter Summary ---
Author Organization [facility] Address [address] [place] [address] Care Team Providers Care Drying Room Supervisor Name Role Phone No Ref-Primary, Physician Primary Care Provider Encounter Details Date Type Department Care Team (Late st Contact Info) Description 11/25/2023 Medical Correspondence [facility] Health Information Management [address] [place] [address] [address] [place] [address] Scan, Non-Provider Social History Tobacco Use Types Packs/Day Years Used Date Smoking Tobacco: Never Assessed Adolescent Education Answer Date Record ed Getting School Help Needed Not on file 12/12 Comments No Sex and Gender Information Value Date Recorded Sex Assigned at Not on file 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
--- OUTSIDE RECORDS SUMMARY | 2024-01-31 09:19 | XMS_ITS | Encounter Summary ---
Author Organization [facility] Address [address] [place] [address] Care Team Providers Care Lead Clinical Research Coordinator Name Role Phone No Ref-Primary, Physician Primary Care Provider Reason for Referral * Consultation (Routine: Next available opening) - Pending Review Specialty Diagnoses / Procedures Referred By Asael gordon Referred To Contact Diagnoses related condition, antepartum Danette Rivera MD [address] [place] [address] Phone: tel: fax: [facility] [place] [address] [place] [address] Phone: tel: fax: Referral ID Status Reason Start Date Expiration Date V isits Requested Visits Authorized [id number] Pending Review 11/25/2023 11/24/2024 1 1 Question Answer Preferred Location: [facility] [place] [facility] 02/18/2024 Ultrasound Comprehensive US (>than 18 [...] No fax [facility] - Danette Rivera - [phone] Comments There is no height or weight [...] (Latest Contact Info) Description 11/25/2023 Transcribe Orders [facility] [place] [address] [place] [address] Danette Rivera MD [address] [place] [address] related condition, antepartum (Primary Dx) Social History Tobacco Use Types Packs/Day Years Used Date Smoking Tobacco: Never Assessed Adolescent Education Answer Date Record ed Getting School Help Needed Not on file 12/12 Comments No Sex and Gender Information Value Date Recorded Sex Assigned at Not on file Legal Sex Female 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
--- OUTSIDE RECORDS SUMMARY | 2024-01-31 09:19 | XMS_ITS | Referral Summary ---
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; Bilobate placenta, third trimester 12/07/2023 10:15 AM CDT - 12/07/2023 11:59 PM CDT Hospital Encounter [facility] [address] [place] [phone] Danette Sage MD Sabol, Bethany, MD related condition, antepartum Discharge Disposition: Home or Self Care 11/29/2023 PRE VISIT [facility] [address] [place] [phone] Paulina Guardado RN Ultrasound (L2- Malformation of placenta, AMA) 11/25/2023 Medical Correspondence [facility] Information Management [address] [place] [address] [address] [place] [address] Scan, Non-Provider 11/25/2023 Transcribe Orders [facility] [place] [address] [place] [address] Danette Sage MD related condition, antepartum (Primary Dx) 11/25/2023 Transcribe Orders [facility] [address] [place] [phone] Danette Sage MD related condition, antepartum (Primary Dx) 11/24/2023 Medical Correspondence [facility] Information Management [address] [facility] [address] [place] [address] Scan, Non-Provider from Last 3 Months Social History Tobacco Use Types Packs/Day Years Used Date Smoking Tobacco: Never Assessed Adolescent Education Answer Date Record ed Getting School Help Needed Not on file 12/12 Estimated Date of Delivery Comme nts Yes 02/21/2024 Based on Ultraso und Sex and Gender Information Value Date Recorded Sex Assigned at Not on file Legal 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 Narrative 12/07/2023 2:51 PM CDT Comprehensive ----- Pat. Name: ADRIÁN RAND Study Date: 12/07/2023 10:20am Pat. NO: [id number] Referring MD: DANETTE BEATTY Site: Pinion Staker: Sherry Pimentel RDMS : 1985 Age: 37 ----- INDICATION ----- Placental abnormality on outside ultrasound. AMA, low risk NIPT. METHOD ----- Transabdominal ultrasound examination. View: Suboptimal view: limited by late gestational age ----- Reyes . Number of fetuses: 1 DATING ----- Date Details Gest. age NAKUL LMP 05/14/2023 Cycle: irregular cycle 29 w + 4 d 02/18/2024 Previous U/S 07/19/2023 GA, GA 9 w + 0 d 29 w + 1 d 02/21/2024 U/S 12/07/2023 based upon AC, BPD, Femur, HC 30 w + 6 d 02/09/2024 Assigned dating based on ultrasound (GA), selected on 12/07/2023 29 w + 1 d 02/21/2024 GENERAL EVALUATION ----- Cardiac activity present. FHR 136 bpm. movements: present. Presentation: cephalic Placenta: Posterior/right lateral placenta. There is a bi-lobed placenta with a velamentous cord insertion into a thin membraneous portion between the two lobes. Umbilical cord: 3 vessel cord Amniotic fluid: Amount of AF: normal. MVP 6.1 cm BIOMETRY ----- BPD 75.1 mm 30w 1d Hadlock OFD 100.3 mm 29w 4d Nicolaides HC 279.9 mm 30w 5d Hadlock Cerebellum tr 33.9 mm 29w 3d Nicolaides AC 277.8 mm 31w 6d 98% Hadlock Femur 58.9 mm 30w 5d Hadlock Humerus 52.1 mm 30w 2d [facility] Weight Calculation: EFW 1,726 g 96% Hadlock EFW (lb,oz) 3 lb 13 oz EFW by Hadlock ([id number]) Head / Face / Neck Biometry: Automotive Glass Technician 5.8 mm CM 6.0 mm Nasal bone 8.9 mm ANATOMY ----- The following structures appear normal: Head / Neck Cranium. Head size. Head shape. Lateral ventricles. Choroid plexus. Midline falx. Cavum septi pellucidi. Cerebellum. Cisterna magna. Parenchyma. Thalami. Vermis. Neck. Face Lips. Profile. Nose. Maxilla. Mandible. Orbits. Lens. Heart / Thorax 4-chamber view. RVOT view. LVOT view. 3-vessel view. 7-wgideh-hppabrb view. Situs. Aortic arch view. Bicaval view. Ductal arch view. Superior vena cava. Inferior vena cava. Cardiac position. Cardiac size. Cardiac rhythm. Right lung. Left lung. Diaphragm. Abdomen Abdom. wall. Cord insertion. Stomach. Kidneys. Bladder. Liver. Bowel. Genitals. Spine Cervical spine. Thoracic spine. Lumbar spine. Sacral spine. Extremities / Skeleton Arms. Right arm. Right hand. Left arm. Left hand. Legs. Right leg. Right foot. Left leg. Left foot. MATERNAL STRUCTURES ----- Cervix Visualized Appearance: Appears Closed Approach - Transabdominal: Cervical length 46.7 mm Right Ovary Visualized Left [...] medical record, and communicating with other health daycare worker and/or care coordination. Please see note for details. Procedure Note Karuna Mata MD - 12/07/2023 Comprehensive ----- Pat. Name: ADRIÁN RAND Study Date: 12/07/2023 10:20am Pat. NO: [id number] Referring MD: DANETTE BEATTY Site: Pinion Staker: Sehrry PimentelLUISA : 1985 Age: 37 ----- INDICATION ----- [...] EFW (lb,oz) 3 lb 13oz EFW by Hadlock([id number]) Head / Face / Neck Biometry: Automotive Glass Technician 5.8mm CM 6.0mm Nasal bone 8.9mm ANATOMY ----- The following structures appear normal: Head / Neck Cranium. Head size. Head shape.Lateral ventricles. Choroid plexus. Midline falx. Cavum septi pellucidi.Cerebellum. Cisterna magna. Parenchyma. Thalami. Vermis. Neck. Face Lips. Profile. Nose. Maxilla.Mandible. Orbits. Lens. Heart / Thorax 4-chamber view. RVOT view. LVOT view.3-vessel view. 0-ryqjhh-qxlmvau view. Situs. Aortic arch view. Bicavalview. Ductal [...] electronic medical record, andcommunicating with other health daycare worker and/or carecoordination. Please see note for details. [...] of the placenta. us Danette Beatty MD [facility] ORDERABLE S Edited Result - Final from Last 3 Months Insurance [employer] Care Teams Truck Sales Manager Relationship Specialty Start Date End Date No Ref-Primary, Physician PCP - General 11/25/23 Karuna Mata MD [address] [place] [address] Assigned OBGYN Provider 01/04/24
--- OUTSIDE RECORDS SUMMARY | 2024-01-31 09:19 | XMS_ITS | Encounter Summary ---
Author Organization [place] Address [address] [place] [address] Care Team Providers Care Motor And Controls Tester Name Role Phone No Ref-Primary, Physician Primary Care Provider Encounter Details Date Type Department Care Team (Late st Contact Info) Description 11/24/2023 Medical Correspondence [facility] Health Information Management [address] [place] [address] [address] [place] [address] Scan, Non-Provider Social History Tobacco Use Types Packs/Day Years Used Date Smoking Tobacco: Never Assessed Adolescent Education Answer Date Record ed Getting School Help Needed Not on file 12/12 Comments No Sex and Gender Information Value Date Recorded Sex Assigned at Not on file 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
--- OUTSIDE RECORDS SUMMARY | 2024-01-31 09:19 | XMS_ITS | Encounter Summary ---
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
--- OUTSIDE RECORDS SUMMARY | 2024-01-31 09:19 | XMS_ITS | Encounter Summary ---
Author Organization [place] Address [address] [place] [address] Care Team Providers Care Aws Developer Name Role Phone No Ref-Primary, Physician Primary Care Provider Reason for Referral * Diagnostic Imaging Ultrasound (Routine) - Pending Review Specialty Diagnoses / Procedures Referred By Marquiseac t Referred To Contact Radiology. Diagnoses related condition, antepartum Procedures [facility] US Comprehensive Single Danette Beatty MD [address] [place] [address] Phone: tel: fax: Referral ID Status Reason Start Date Expiration Date V isits Requested Visits Authorized [id number] Pending Review 11/25/2023 11/24/2024 1 1 Reason for Visit * Diagnostic Imaging Ultrasound (Routine) - Pending Review Specialty Diagnoses / Procedures Referred By Marquiseac t Referred To Contact Radiology. Diagnoses related condition, antepartum Procedures [facility] US Comprehensive Single Danette Beatty MD [address] [place] [address] Phone: tel: fax: Referral ID Status Reason Start Date Expiration Date V isits Requested Visits Authorized [id number] Pending Review 11/25/2023 11/24/2024 1 1 Encounter Details Date Type Department Care Team (Latest Contact Info) Description 12/07/2023 10:15 AM CDT - 12/07/2023 11:59 PM CDT Hospital Encounter [facility] [address] [place] [address] Danette Beatty MD [address] [place] [address] Karuna Mata MD [address] [place] [address] related condition, antepartum Discharge Disposition: [...] on file Legal Sex Female 3:[address]OR Gender Identity Not on file Sexual Orientation Not on file documented as of this encounter Plan of Treatment Not on file documented as of this encounter Procedures Procedure Name Priority Date/Time Associated Diagnosis Comments [facility] COMPREHENSIVE SINGLE Routine 12/07/2023 11:13 AM CDT related condition, antepartum documented in this encounter Results * [facility] Comprehensive Single (12/07/2023 11:13 AM [...] RAND Study Date: 12/07/2023 10:20am Pat. NO: [id number] Referring MD: DANETTE BEATTY Site: Internal Consultant: Sherry Pimentel RDMS : 1985 Age: 37 [...] 5d Hadlock Humerus 52.1 mm 30w 2d Alex Weight Calculation: EFW 1,726 g 96% Hadlock EFW (lb,oz) 3 lb 13 oz EFW by Hadlock ([id number]) Head / Face / Neck Biometry: Coke Burner 5.8 mm CM 6.0 mm Nasal bone 8.9 mm ANATOMY ----- The following structures appear normal: Head / Neck Cranium. Head size. Head shape. Lateral ventricles. Choroid plexus. Midline falx. Cavum septi pellucidi. Cerebellum. Cisterna magna. Parenchyma. Thalami. Vermis. Neck. Face Lips. Profile. Nose. Maxilla. Mandible. Orbits. Lens. Heart / Thorax 4-chamber view. RVOT view. LVOT view. 3-vessel view. 9-bzkeeu-xfezlhf view. Situs. Aortic arch view. Bicaval view. [...] medical record, and communicating with other health spiritual care coordinator and/or care coordination. Please see note for details. Procedure Note Karuna Mata MD - 12/07/2023 Comprehensive ----- Pat. Name: ADRIÁN RAND Study Date: 12/07/2023 10:20am Pat. NO: [id number] Referring MD: DANETTE BEATTY Site: Internal Consultant: Sherry PimentelLUISA : 1985 Age: 37 ----- INDICATION [...] EFW (lb,oz) 3 lb 13oz EFW by Hadlock([id number]) Head / Face / Neck Biometry: Coke Burner 5.8mm CM 6.0mm Nasal bone 8.9mm ANATOMY ----- The following structures appear normal: Head / Neck Cranium. Head size. Head shape.Lateral ventricles. Choroid plexus. Midline falx. Cavum septi pellucidi.Cerebellum. Cisterna magna. Parenchyma. Thalami. Vermis. Neck. Face Lips. Profile. Nose. Maxilla.Mandible. Orbits. Lens. Heart / Thorax 4-chamber view. RVOT view. LVOT view.3-vessel view. 7-ucwzqx-cniulty view. Situs. Aortic arch view. Bicavalview. Ductal [...] electronic medical record, andcommunicating with other health spiritual care coordinator and/or carecoordination. Please see note for [...] velez on the surface of the placenta. aDnette Beatty MD [facility] ORDERABLE S Edited Result - Final documented in this encounter Visit Diagnoses Diagnosis related condition, antepartum documented in this encounter Care Teams Aws Developer Relationship Specialty Start Date End Date No Ref-Primary, Physician PCP - General 11/25/23 documented as of this encounter
--- OUTSIDE RECORDS SUMMARY | 2024-01-31 09:19 | XMS_ITS | Encounter Summary ---
Author Organization [place] Address [address] [place] [address] Care Team Providers Care Media Producer Name Role Phone No Ref-Primary, Physician Primary Care Provider Reason for Referral * Diagnostic Imaging Ultrasound (Routine) - Pending Review Specialty Diagnoses / Procedures Referred By Contac t Referred To Contact Radiology. Diagnoses related condition, antepartum Procedures [facility] US Comprehensive Single Danette Beatty MD [address] [place] [address] Phone: tel: fax: Referral ID Status Reason Start Date Expiration Date V isits Requested Visits Authorized [id number] Pending Review 11/25/2023 11/24/2024 1 1 Encounter Details Date Type Department Care Team (Latest Contact Info) Description 11/25/2023 Transcribe Orders [facility] [place] [address] [facility] [address] [place] [phone] Danette Beatty MD [address] [place] [address] related condition, antepartum (Primary Dx) Social History Tobacco Use Types Packs/Day Years Used Date Smoking Tobacco: Never Assessed Adolescent Education Answer Date Record ed Getting School Help Needed Not on file 12/12 Comments No Sex and Gender Information Value Date Recorded Sex Assigned at Not on file Legal Sex Female 3:28 AM PLATE 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 NO: [id number] Referring MD: DANETTE BEATTY Site: Litigation Coordinator: Sherry Pimentel RDMS : 1985 Age: 37 [...] Assigned dating based on ultrasound (), selected on 12/07/2023 29 w + 1 [...] 3 lb 13 oz EFW by Hadlock ([id number]) Head / Face / Neck Biometry: Coal Conveyor Operator 5.8 mm CM 6.0 mm Nasal bone 8.9 mm ANATOMY ----- The following structures appear normal: Head / Neck Cranium. Head size. Head shape. Lateral ventricles. Choroid plexus. Midline falx. Cavum septi pellucidi. Cerebellum. Cisterna magna. Parenchyma. Thalami. Vermis. Neck. Face Lips. Profile. Nose. Maxilla. Mandible. Orbits. Lens. Heart / Thorax 4-chamber view. RVOT view. LVOT view. 3-vessel view. 5-cfuyhp-mkxfekc view. Situs. Aortic arch view. Bicaval view. [...] medical record, and communicating with other health care transition coordinator and/or care coordination. Please see note for details. Procedure Note Karuna Mata MD - 12/07/2023 Comprehensive ----- Pat. Name: ADRIÁN RAND Study Date: 12/07/2023 10:20am Pat. NO: [id number] Referring MD: DANETTE BEATTY Site: Litigation Coordinator: Sherry Pimentel RDMS : 1985 Age: 37 [...] EFW (lb,oz) 3 lb 13oz EFW by Hadlock([id number]) Head / Face / Neck Biometry: Coal Conveyor Operator 5.8mm CM 6.0mm Nasal bone 8.9mm ANATOMY ----- The following structures appear normal: Head / Neck Cranium. Head size. Head shape.Lateral ventricles. Choroid plexus. Midline falx. Cavum septi pellucidi.Cerebellum. Cisterna magna. Parenchyma. Thalami. Vermis. Neck. Face Lips. Profile. Nose. Maxilla.Mandible. Orbits. Lens. Heart / Thorax 4-chamber view. RVOT view. LVOT view.3-vessel view. 8-emfmdl-wefsaby view. Situs. Aortic arch view. Bicavalview. Ductal [...] electronic medical record, andcommunicating with other health care transition coordinator and/or carecoordination. Please see note for [...] of the placenta. us Danette Beatty MD [facility] ORDERABLE S Edited Result - Final documented in this encounter Visit Diagnoses Diagnosis related condition, antepartum- Primary related condition, antepartum documented in this encounter Care Teams Media Producer Relationship Specialty Start Date End Date No Ref-Primary, Physician PCP - General 11/25/23 documented as of this encounter
--- OUTSIDE RECORDS SUMMARY | 2024-01-31 09:19 | XMS_ITS | Encounter Summary ---
Author Organization [place] Address [address] [place] [address] Care Team Providers Care Club Steward Name Role Phone No Ref-Primary, Physician Primary Care Provider Reason for Visit * Reason Comments Ultrasound L2- Malformation of placenta, AMA Encounter Details Date Type Department Care Team (Late st Contact Info) Description 11/29/2023 PRE VISIT [facility] [place] [address] [facility] [address] [place] [address] Paulina Guardado RN Ultrasound (L2- [...] on file Legal Sex Female 3:28 AM SUMMER COUNSELOR Gender Identity Not on file Sexual Orientation Not on file documented as of this encounter Plan of Treatment Not on file documented as of this encounter Visit Diagnoses Not on filedocumented in this encounter Care Teams Club Steward Relationship Specialty Start Date End Date No Ref-Primary, Physician PCP - General 11/25/23 documented as of this encounter
--- OUTSIDE RECORDS SUMMARY | 2024-01-31 09:19 | XMS_ITS | Clinical Summary ---
Author Organization [place] Address [address] [place] [address] Care Team Providers Care Muffler Mechanic Name Role Phone No Ref-Primary, Physician Primary Care Provider Karuna Mata MD Unavailable [phone] Encounters Date Type Department Care Team Description 12/07/2023 10:45 AM CDT Office Visit [facility] Maternal Medicine [facility] 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 [facility] [address] [place] [phone] Danette Sage MD Sabol, Bethany, MD related condition, antepartum Discharge Disposition: Home or Self Care 12/07/2023 Travel 11/29/2023 PRE VISIT [facility] Medicine [facility] [address] [place] [address] Paulina Guardado RN Ultrasound (L2- Malformation of placenta, AMA) 11/25/2023 Medical Correspondence [facility] Information Management [address] [place] [address] [address] [place] [address] Scan, Non-Provider 11/25/2023 Transcribe Orders [facility]aternal Medicine [facility] [address] [place] [address] Danette Sage MD related condition, antepartum (Primary Dx) 11/25/2023 Transcribe Orders [facility]aternal Medicine [facility] [address] [place] [phone] Danette Sage MD related condition, antepartum (Primary Dx) 11/24/2023 Medical Correspondence [facility] Information Management [address] [facility] [address] [place] [address] Scan, Non-Provider from Last 3 Months Social History Tobacco Use Types Packs/Day Years Used Date Smoking Tobacco: Never Assessed Adolescent Education Answer Date Record ed Getting School Help Needed Not on file 12/12 Estimated Date of Delivery Comme nts Yes 02/21/2024 Based on Ultraso und Sex and Gender Information Value Date Recorded Sex Assigned at Not on file Legal Sex Female 3:28 AM CUPOLA PATCHER Gender Identity Not on file Sexual Orientation [...] Procedure Name Priority Date/Time Associated Diagnosis Comments [facility] US COMPREHENSIVE SINGLE Routine 12/07/2023 11:13 AM CDT related condition, antepartum from Last 3 Months Results * [facility] US Comprehensive Single (12/07/2023 11:13 AM [...] RAND Study Date: 12/07/2023 10:20am Pat. NO: [id number] Referring MD: DANETTE BEATTY Site: Rock Contractor: Sherry Pimentel RDMS : 1985 Age: 37 [...] 3 lb 13 oz EFW by Hadlock ([id number]) Head / Face / Neck Biometry: Car Tester 5.8 mm CM 6.0 mm Nasal bone 8.9 mm ANATOMY ----- The following structures appear normal: Head / Neck Cranium. Head size. Head shape. Lateral ventricles. Choroid plexus. Midline falx. Cavum septi pellucidi. Cerebellum. Cisterna magna. Parenchyma. Thalami. Vermis. Neck. Face Lips. Profile. Nose. Maxilla. Mandible. Orbits. Lens. Heart / Thorax 4-chamber view. RVOT view. LVOT view. 3-vessel view. 0-nbbdqw-yoampuc view. Situs. Aortic arch view. Bicaval view. [...] medical record, and communicating with other health transitions rn care coordinator and/or care coordination. Please see note for details. Procedure Note Karuna Mata MD - 12/07/2023 Comprehensive ----- Pat. Name: ADRIÁN RAND Study Date: 12/07/2023 10:20am Pat. NO: [id number] Referring MD: DANETTE BEATTY Site: Rock Contractor: Sherry Pimentel RDMS : 1985 Age: 37 [...] EFW (lb,oz) 3 lb 13oz EFW by Yumiko([id number]) Head / Face / Neck Biometry: Car Tester 5.8mm CM 6.0mm Nasal bone 8.9mm ANATOMY ----- The following structures appear normal: Head / Neck Cranium. Head size. Head shape.Lateral ventricles. Choroid plexus. Midline falx. Cavum septi pellucidi.Cerebellum. Cisterna magna. Parenchyma. Thalami. Vermis. Neck. Face Lips. Profile. Nose. Maxilla.Mandible. Orbits. Lens. Heart / Thorax 4-chamber view. RVOT view. LVOT view.3-vessel view. 6-naawzw-sdnfiqi view. Situs. Aortic arch view. Bicavalview. Ductal [...] electronic medical record, andcommunicating with other health transitions rn care coordinator and/or carecoordination. Please see note [...] of the placenta. us Danette Beatty MD [facility] ORDERABLE S Edited Result - Final from Last 3 Months Insurance [email or web address] Care Teams Muffler Mechanic Relationship Specialty Start Date End Date No Ref-Primary, Physician PCP - General 11/25/23 Karuna Mata MD [address] [facility] [address] [place] [address] Assigned OBGYN Provider 01/04/24
--- OUTSIDE RECORDS SUMMARY | 2024-01-31 09:19 | XMS_ITS ---
Author Organization [facility] Address [address] [place] [address] Care Team Providers Care Station Engineer Name Role Phone Unavailable Unavailable Unavailable Surgery Details Not on file Complications Check Surgery Details section. Procedure Estimated Blood Loss Check Surgery Details section. Procedure Findings Check Surgery Details section. Procedure Specimens Taken Check Surgery Details section.
--- OUTSIDE RECORDS SUMMARY | 2024-01-31 09:19 | XMS_ITS | Encounter Summary ---
Author Organization [place] Address [facility] [place] [address] Care Team Providers Care Extraction Machine Operator Name Role Phone No Ref-Primary, Physician Primary Care Provider Reason for Visit * Reason Comments Ultrasound L2-malformation of p lacenta, ?placental velez Encounter Details Date Type Department Care Team (Late st Contact Info) Description 12/07/2023 10:45 AM CDT Office Visit [facility] [place] [address] [facility] [address] [place] [address] Danette Rivera MD [address] [place] [address] Karuna Mata MD [address] [place] [address] [address] [place] [address] Multigravida of advanced maternal age [...] file Legal Sex Female 3:28 AM MANAGER SERVICING Gender Identity Not on file Sexual Orientation Not on file documented as of this encounter Progress Notes * Karuna Mata MD - 12/07/2023 10:45 AM CDT The patient was seen for an ultrasound in the Maternal- Medicine Center at the [facility] today. For a detailed report of the ultrasound examination, please see the ultrasound report which can be found under the imaging tab. If you have questions regarding today's evaluation or if we can be of further service, please contact the Maternal- Medicine Center. Karuna Mata MD Instrument Assembler, FOLDER TIER Maternal- Medicine [phone] (Pager) documented in this encounter Nursing Notes * Agnieszka Monge, RN - 12/07/2023 10:45 AM CDT Patient presents to [facility] for L2 at 29w4d due to malformation of placenta, ?placental velez. Positive movement. Denies LOF, vaginal bleeding or cramping/contractions. SBAR given to [facility] MD, see their note in Epic. [...] trimester documented in this encounter Care Teams Extraction Machine Operator Relationship Specialty Start Date End Date No Ref-Primary, Physician PCP - General 11/25/23 documented as of this encounter
== END 2024-01-31 09:18 | disposition home or self-care (01) ==
LOC: US 09:17
PROVIDERS: PCP Nurse Practitioner Family; Visit Provider Obstetrics & Gynecology
DX: O43.103 Malformation of placenta, unspecified, third trimester (principal); O09.523 Supervision of elderly multigravida, third trimester; Z3A.38 38 weeks gestation of pregnancy
CPT/HCPCS: 76816; 76819

== ENCOUNTER 2024-02-08 09:16 | Outpatient (CLI) | payer OTHER, SELFPAY ==
--- NOTE | 2024-02-08 09:15 | CRLHL7_ITS ---
For Patients: As a result of the Century Cures Act, medical imaging exams and procedure reports are released immediately into your electronic medical record. You may view this report before your referring provider. If you have questions, please contact your health care provider. INDICATION: Bilobed placenta and velamentous insertion COMPARISON: 01/31/2024 TECHNIQUE: Real time borjas scale imaging of the fetus was performed. Without non-stress testing. FINDINGS: Sonographic imaging demonstrates a single living intrauterine gestation. Fetus demonstrates a regular cardiac rate of 157 beats per minute. Fetus has a breech position. The amniotic fluid volume single deepest pocket measures 7.7 cm. AGUSTIN 26.2 cm. The fetus was active and demonstrated normal breathing movements. There was normal flexion and extension of the trunk and extremities. IMPRESSION: Normal biophysical profile score of 8 out of 8. SDP 7.7 cm. AGUSTIN 26.2 cm. Dictated by Conrad Black MD @ 02/08/2024 10:54:20 AM (Electronically Signed)
--- OUTSIDE RECORDS SUMMARY | 2024-02-08 09:19 | XMS_ITS | Encounter Summary ---
Author Organization [place] Address [facility] [address] Care Team Providers Care Basket Assembler Name Role Phone No Ref-Primary, Physician Primary Care Provider Reason for Visit * Reason Comments Ultrasound L2-malformation of p lacenta, ?placental velez Encounter Details Date Type Department Care Team (Late st Contact Info) Description 12/07/2023 10:45 AM CDT Office Visit [facility] [place] [address] [facility] [address] [facility] [address] [place] [address] Danette Rivera MD [address] [place] [address] Karuna Mata MD [address] [place] [address] [address] [place] [address] Multigravida of advanced maternal age [...] on file Legal Sex Female 3:28 AM BUSHING AND BROACH OPERATOR Gender Identity Not on file Sexual Orientation Not on file documented as of this encounter Progress Notes * Karuna Mata MD - 12/07/2023 10:45 AM CDT The patient was seen for an ultrasound in the Maternal- Medicine Center at the [facility] today. For a detailed report of the ultrasound examination, please see the ultrasound report which can be found under the imaging tab. If you have questions regarding today's evaluation or if we can be of further service, please contact the Maternal- Medicine Center. Karuna Mata MD Accounts Receivable Associate, CONCRETE POINTER Maternal- Medicine [phone] (Pager) documented in this encounter Nursing Notes * Agnieszka Monge, RN - 12/07/2023 10:45 AM CDT Patient presents to [facility] for L2 at 29w4d due to malformation of placenta, ?placental velez. Positive movement. Denies LOF, vaginal bleeding or cramping/contractions. SBAR given to [facility] MD, see their note in [...] trimester documented in this encounter Care Teams Basket Assembler Relationship Specialty Start Date End Date No Ref-Primary, Physician PCP - General 11/25/23 documented as of this encounter
--- OUTSIDE RECORDS SUMMARY | 2024-02-08 09:19 | XMS_ITS | Encounter Summary ---
Author Organization [place] Address [address] [place] [address] Care Team Providers Care Earth Mover Name Role Phone No Ref-Primary, Physician Primary Care Provider Encounter Details Date Type Department Care Team (Late st Contact Info) Description 11/24/2023 Medical Correspondence [facility] Health Information Management [address] [place] [address] [address] [place] [address] Scan, Non-Provider Social History Tobacco Use Types Packs/Day Years Used Date Smoking Tobacco: Never Assessed Adolescent Education Answer Date Record ed Getting School Help Needed Not on file 12/12 Comments No Sex and Gender Information Value Date Recorded Sex Assigned at Not on file Legal Sex Female 3:28 AM MEDICAL TECHNOLOGIST HEMATOLOGY Gender Identity Not on file Sexual Orientation Not on file documented as of this encounter Plan of Treatment Not on file documented as of this encounter Visit Diagnoses Not on filedocumented in this encounter Care Teams Earth Mover Relationship Specialty Start Date End Date No Ref-Primary, Physician PCP - General 11/25/23 documented as of this encounter
--- OUTSIDE RECORDS SUMMARY | 2024-02-08 09:19 | XMS_ITS | Encounter Summary ---
Author Organization [place] Address [address] [place] [address] Care Team Providers Care Extension Course Counselor Name Role Phone No Ref-Primary, Physician Primary Care Provider Reason for Referral * Consultation (Routine: Next available opening) - Pending Review Specialty Diagnoses / Procedures Referred By Asael gordon Referred To Contact Diagnoses related condition, antepartum Danette Rivera MD [address] [place] [address] Phone: tel: fax: [facility] [place] [address] [place] [address] Phone: tel: fax: Referral ID Status Reason Start Date Expiration Date V isits Requested Visits Authorized [id number] Pending Review 11/25/2023 11/24/2024 1 1 Question Answer Preferred Location: [facility] [place] NAKUL 02/18/2024 Ultrasound Comprehensive US (>than 18 [...] No fax [facility] - Danette Rivera - [phone] Comments There is no height or weight [...] (Latest Contact Info) Description 11/25/2023 Transcribe Orders [facility] [place] [address] [place] [address] Danette Rivera MD [address] [place] [address] related condition, antepartum (Primary Dx) Social History Tobacco Use Types Packs/Day Years Used Date Smoking Tobacco: Never Assessed Adolescent Education Answer Date Record ed Getting School Help Needed Not on file 12/12 Comments No Sex and Gender Information Value Date Recorded Sex Assigned at Not on file Legal Sex Female 3:28 AM VIRTUAL RECRUITER Gender Identity Not on file Sexual Orientation [...] Primary documented in this encounter Care Teams Extension Course Counselor Relationship Specialty Start Date End Date No Ref-Primary, Physician PCP - General 11/25/23 documented as of this encounter
--- OUTSIDE RECORDS SUMMARY | 2024-02-08 09:19 | XMS_ITS | Encounter Summary ---
Author Organization [place] Address [address] [place] [address] Care Team Providers Care Research Interviewer Name Role Phone No Ref-Primary, Physician Primary Care Provider Reason for Referral * Diagnostic Imaging Ultrasound (Routine) - Pending Review Specialty Diagnoses / Procedures Referred By Marquiseac t Referred To Contact Radiology. Diagnoses related condition, antepartum Procedures [facility] US Comprehensive Single Danette Beatty MD [address] [place] [address] Phone: tel: fax: Referral ID Status Reason Start Date Expiration Date V isits Requested Visits Authorized [id number] Pending Review 11/25/2023 11/24/2024 1 1 Reason for Visit * Diagnostic Imaging Ultrasound (Routine) - Pending Review Specialty Diagnoses / Procedures Referred By Marquiseac t Referred To Contact Radiology. Diagnoses related condition, antepartum Procedures [facility] US Comprehensive Single Danette Beatty MD [address] [place] [address] Phone: tel: fax: Referral ID Status Reason Start Date Expiration Date V isits Requested Visits Authorized [id number] Pending Review 11/25/2023 11/24/2024 1 1 Encounter Details Date Type Department Care Team (Latest Contact Info) Description 12/07/2023 10:15 AM CDT - 12/07/2023 11:59 PM CDT Hospital Encounter [facility] Maternal Medicine [facility] [address] [place] [address] Danette Beatty MD [address] [place] [address] Karuna Mata MD [address] [place] [address] related condition, antepartum Discharge Disposition: [...] on file Legal Sex Female 3:28 AM MOLDER SWEEP Gender Identity Not on file Sexual Orientation Not on file documented as of this encounter Plan of Treatment Not on file documented as of this encounter Procedures Procedure Name Priority Date/Time Associated Diagnosis Comments [facility] COMPREHENSIVE SINGLE Routine 12/07/2023 11:13 AM CDT related condition, antepartum documented in this encounter Results * [facility] Comprehensive Single (12/07/2023 11:13 AM CDT) [...] RAND Study Date: 12/07/2023 10:20am Pat. NO: [id number] Referring MD: DANETTE BEATTY Site: Stock Associate: Sherry Pimentel RDMS : 1985 Age: [...] 3 lb 13 oz EFW by Hadlock ([id number]) Head / Face / Neck Biometry: Outreach Team Member 5.8 mm CM 6.0 mm Nasal bone 8.9 mm ANATOMY ----- The following structures appear normal: Head / Neck Cranium. Head size. Head shape. Lateral ventricles. Choroid plexus. Midline falx. Cavum septi pellucidi. Cerebellum. Cisterna magna. Parenchyma. Thalami. Vermis. Neck. Face Lips. Profile. Nose. Maxilla. Mandible. Orbits. Lens. Heart / Thorax 4-chamber view. RVOT view. LVOT view. 3-vessel view. 3-jjbavb-mqmafoy view. Situs. Aortic arch view. Bicaval view. [...] record, and communicating with other health care management associate and/or care coordination. Please see note for details. Procedure Note Karuna Mata MD - 12/07/2023 Comprehensive ----- Pat. Name: ADRIÁN RAND Study Date: 12/07/2023 10:20am Pat. NO: [id number] Referring MD: DANETTE BEATTY Site: Stock Associate: Sherry PimentelLUISA : 1985 Age: 37 ----- [...] EFW (lb,oz) 3 lb 13oz EFW by Hadlock([id number]) Head / Face / Neck Biometry: Outreach Team Member 5.8mm CM 6.0mm Nasal bone 8.9mm ANATOMY ----- The following structures appear normal: Head / Neck Cranium. Head size. Head shape.Lateral ventricles. Choroid plexus. Midline falx. Cavum septi pellucidi.Cerebellum. Cisterna magna. Parenchyma. Thalami. Vermis. Neck. Face Lips. Profile. Nose. Maxilla.Mandible. Orbits. Lens. Heart / Thorax 4-chamber view. RVOT view. LVOT view.3-vessel view. 3-zrsxiq-zlxhfha view. Situs. Aortic arch view. Bicavalview. Ductal [...] medical record, andcommunicating with other health care management associate and/or carecoordination. Please see note for details. [...] velez on the surface of the placenta. Danette Beatty MD [facility] ORDERABLE S Edited Result - Final documented in this encounter Visit Diagnoses Diagnosis related condition, antepartum documented in this encounter Care Teams Research Interviewer Relationship Specialty Start Date End Date No Ref-Primary, Physician PCP - General 11/25/23 documented as of this encounter
--- OUTSIDE RECORDS SUMMARY | 2024-02-08 09:19 | XMS_ITS | Clinical Summary ---
Author Organization [place] Address [address] [place] [address] Care Team Providers Care Writer Editor Name Role Phone No Ref-Primary, Physician Primary Care Provider Karuna Mata MD Unavailable [phone] Encounters Date Type Department Care Team Description 12/07/2023 10:45 AM CDT Office Visit [facility] [address] [place] [address] Danette Sage MD Sabol, Bethany, MD Multigravida of advanced maternal age in second trimester (Primary Dx); 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; Bilobate placenta, third trimester 12/07/2023 10:15 AM CDT - 12/07/2023 11:59 PM CDT Hospital Encounter [facility] [address] [place] [address] Danette Sage MD Sabol, Bethany, MD related condition, antepartum Discharge Disposition: Home or Self Care 12/07/2023 Travel 11/29/2023 PRE VISIT [facility] Medicine [facility] [address] [place] [address] Paulina Guardado RN Ultrasound (L2- Malformation of placenta, AMA) 11/25/2023 Medical Correspondence [facility] Information Management [address] [place] [address] [address] [place] [address] Scan, Non-Provider 11/25/2023 Transcribe Orders [facility]aternal [facility] [address] [place] [address] Danette Sage MD related condition, antepartum (Primary Dx) 11/25/2023 Transcribe Orders [facility]aternal [facility] [address] [place] [address] Danette Sage MD related condition, antepartum (Primary Dx) 11/24/2023 Medical Correspondence [facility] Information Management [address] [place] [address] Scan, Non-Provider from Last 3 Months Social History Tobacco Use Types Packs/Day Years Used Date Smoking Tobacco: Never Assessed Adolescent Education Answer Date Record ed Getting School Help Needed Not on file 12/12 Estimated Date of Delivery Comme nts Yes 02/21/2024 Based on Ultraso und Sex and Gender Information Value Date Recorded Sex Assigned at Not on file Legal 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 NO: [id number] Referring MD: DANETTE BEATTY Site: Learning Support Teacher: Sherry Pimentel RDMS : 1985 Age: 37 [...] 3 lb 13 oz EFW by Hadlock ([id number]) Head / Face / Neck Biometry: Tissue Technician 5.8 mm CM 6.0 mm Nasal bone 8.9 mm ANATOMY ----- The following structures appear normal: Head / Neck Cranium. Head size. Head shape. Lateral ventricles. Choroid plexus. Midline falx. Cavum septi pellucidi. Cerebellum. Cisterna magna. Parenchyma. Thalami. Vermis. Neck. Face Lips. Profile. Nose. Maxilla. Mandible. Orbits. Lens. Heart / Thorax 4-chamber view. RVOT view. LVOT view. 3-vessel view. 8-khiqiq-onwwovr view. Situs. Aortic arch view. Bicaval view. [...] record, and communicating with other health career information specialist and/or care coordination. Please see note for details. Procedure Note Karuna Mata MD - 12/07/2023 Comprehensive ----- Pat. Name: ADRIÁN RAND Study Date: 12/07/2023 10:20am Pat. NO: [id number] Referring MD: DANETTE BEATTY Site: Learning Support Teacher: Sherry Pimentel RDMS : 1985 Age: 37 [...] EFW (lb,oz) 3 lb 13oz EFW by Yumiko([id number]) Head / Face / Neck Biometry: Tissue Technician 5.8mm CM 6.0mm Nasal bone 8.9mm ANATOMY ----- The following structures appear normal: Head / Neck Cranium. Head size. Head shape.Lateral ventricles. Choroid plexus. Midline falx. Cavum septi pellucidi.Cerebellum. Cisterna magna. Parenchyma. Thalami. Vermis. Neck. Face Lips. Profile. Nose. Maxilla.Mandible. Orbits. Lens. Heart / Thorax 4-chamber view. RVOT view. LVOT view.3-vessel view. 6-ngfcqd-vkrgywm view. Situs. Aortic arch view. Bicavalview. Ductal [...] medical record, andcommunicating with other health career information specialist and/or carecoordination. Please see note for [...] the placenta. us Danette Beatty MD [facility] ORDERABLE S Edited Result - Final from Last 3 Months Insurance [email or web address] Care Teams Writer Editor Relationship Specialty Start Date End Date No Ref-Primary, Physician PCP - General 11/25/23 Karuna Mata MD [address] [address] [place] [address] Assigned OBGYN Provider 01/04/24
--- OUTSIDE RECORDS SUMMARY | 2024-02-08 09:19 | XMS_ITS ---
Author Organization [facility] Address [address] [place] [address] Care Team Providers Care Honing Machine Operator Name Role Phone Unavailable Unavailable Unavailable Surgery Details Not on file Complications Check Surgery Details section. Procedure Estimated Blood Loss Check Surgery Details section. Procedure Findings Check Surgery Details section. Procedure Specimens Taken Check Surgery Details section.
--- OUTSIDE RECORDS SUMMARY | 2024-02-08 09:19 | XMS_ITS | Referral Summary ---
Author Organization [facility] Address [address] [place] [address] Care Team Providers Care Wood Model Builder Name Role Phone None Reported, Pcp Primary Care Provider Unavail able Source Comments Patient records contain information from all sites at [facility]. For routine questions regarding patient records, call [phone] during business hours, M-F 8:00 AM - 5:00 PM Central Time. Record requests for emergency care only can be directed to [phone] at any time.[facility] Allergies No known active allergies Medications [...] = 0.6 oz pur e alcohol) WEEKLY [facility] Utilities Answer Date Recorded In [...] week 07/11/2021 How often do you attend [facility] or zoroastrian services? 1 to 4 times per year 07/11/2021 Do you belong to any clubs o r organizations such as muslim groups, unions, fraternal or athletic groups, or [...] and heating? Not hard at all 07/11/2021 [employer] [place] of Occupat ional Health - Occupational Stress [...] PM CDT Legal Sex Female 2:11 AM WATCH REPAIR TECHNICIAN Gender Identity Female 07/11/2021 7:48 PM [...] PT SOURCE, B Routine 02/09/2016 9:53 PM WATCH REPAIR TECHNICIAN from Last 3 Months or Most Recently Relevant to Health Maintenance Results * HIV-1/HIV-2 Ab Rapid (02/09/2016 9:53 PM WATCH REPAIR TECHNICIAN) HIV-1/HIV-2 Ab Rapid, P Negative Negative [facility] 02/09/2016 9:53 PM WATCH REPAIR TECHNICIAN 02/09/2016 9:53 PM WATCH REPAIR TECHNICIAN us Martín Woods M.D., M.P.H. LAB MICROBIOLOGY - BLOOD ORDERABLES Final Result [facility] [address] [place] [address], [facility] from Last 3 Months or Most Recently Relevant to Health Maintenance Insurance [employer] Care Teams Wood Model Builder Relationship Specialty Start Date End Date None Reported, Pcp PCP - General Family Medicine 10/09/22
--- OUTSIDE RECORDS SUMMARY | 2024-02-08 09:19 | XMS_ITS | Clinical Summary ---
Author Organization [facility] Address [address] [place] [address] Care Team Providers Care Web Site Project Manager Name Role Phone None Reported, Pcp Primary Care Provider Unavail able Source Comments Patient records contain information from all sites at [facility]. For routine questions regarding patient records, call [phone] during business hours, M-F 8:00 AM - 5:00 PM Central Time. Record requests for emergency care only can be directed to [phone] at any time.[facility] Allergies No known active allergies Medications [...] = 0.6 oz pur e alcohol) WEEKLY [facility] Utilities Answer Date Recorded In the past 12 months has e [place], gas, oil, or water [employer] threatened to shut off services in [...] often do you attend chur ch or alevism services? 1 to 4 times per year [...] and heating? Not hard at all 07/11/2021 [facility] [place] of Occupat ional Health - Occupational Stress [...] PM CDT Legal Sex Female 2:11 AM WET WHEELER Gender Identity Female 07/11/2021 7:48 PM CDT [...] PT SOURCE, B Routine 02/09/2016 9:53 PM WET WHEELER from Last 3 Months or Most Recently Relevant to Health Maintenance Results * HIV-1/HIV-2 Ab Rapid (02/09/2016 9:53 PM WET WHEELER) HIV-1/HIV-2 Ab Rapid, P Negative Negative [facility] 02/09/2016 9:53 PM WET WHEELER 02/09/2016 9:53 PM WET WHEELER us Martín Woods M.D., M.P.H. LAB MICROBIOLOGY - BLOOD ORDERABLES Final Result [facility] [address] [place] [address], [facility] from Last 3 Months or Most Recently Relevant to Health Maintenance Insurance [employer] [place] [employer] Care Teams Web Site Project Manager Relationship Specialty Start Date End Date None Reported, Pcp PCP - General Family Medicine 10/09/22
--- OUTSIDE RECORDS SUMMARY | 2024-02-08 09:19 | XMS_ITS | Referral Summary ---
Author Organization [place] Address [address] [place] [address] Care Team Providers Care Environmental Science Program Director Name Role Phone No Ref-Primary, Physician Primary Care Provider Karuna Mata MD Unavailable [phone] Encounters Date Type Department Care Team Description 12/07/2023 Travel 12/07/2023 10:45 AM CDT Office Visit [facility] Maternal Medicine [facility] [address] [place] [phone] Danette Sage MD Sabol, Bethany, MD Multigravida of advanced maternal age in second trimester (Primary Dx); 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; Bilobate placenta, third trimester 12/07/2023 10:15 AM CDT - 12/07/2023 11:59 PM CDT Hospital Encounter [facility] Maternal Medicine [facility] [address] [place] [phone] Danette Sage MD Sabol, Bethany, MD related condition, antepartum Discharge Disposition: Home or Self Care 11/29/2023 PRE VISIT [facility] Medicine [facility] [address] [place] [phone] Paulina Guardado RN Ultrasound (L2- Malformation of placenta, AMA) 11/25/2023 Medical Correspondence [facility] Information Management [address] [place] [address] [address] [place] [address] Scan, Non-Provider 11/25/2023 Transcribe Orders [facility] M[facility] Medicine [facility] [place] [address] [place] [address] Danette Sage MD related condition, antepartum (Primary Dx) 11/25/2023 Transcribe Orders [facility] Maternal Medicine [facility] [address] [place] [phone] Danette Sage MD related condition, antepartum (Primary Dx) 11/24/2023 Medical Correspondence [facility] Information Management [address] [place] [address] Scan, Non-Provider from Last 3 Months Social [...] file 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 NO: [id number] Referring MD: DANETTE BEATTY Site: Patient Relations Director: Sherry Pimentel RDMS : 1985 Age: 37 [...] 5d Hadlock Humerus 52.1 mm 30w 2d [facility] Weight Calculation: EFW 1,726 g 96% Hadlock EFW (lb,oz) 3 lb 13 oz EFW by Hadlock ([id number]) Head / Face / Neck Biometry: Continuous Still Operator 5.8 mm CM 6.0 mm Nasal bone 8.9 mm ANATOMY ----- The following structures appear normal: Head / Neck Cranium. Head size. Head shape. Lateral ventricles. Choroid plexus. Midline falx. Cavum septi pellucidi. Cerebellum. Cisterna magna. Parenchyma. Thalami. Vermis. Neck. Face Lips. Profile. Nose. Maxilla. Mandible. Orbits. Lens. Heart / Thorax 4-chamber view. RVOT view. LVOT view. 3-vessel view. 7-beyfby-blbgtpe view. Situs. Aortic arch view. Bicaval view. [...] medical record, and communicating with other health neonatal intensive care nurse and/or care coordination. Please see note for details. Procedure Note Karuna Mata MD - 12/07/2023 Comprehensive ----- Pat. Name: ADRIÁN RAND Study Date: 12/07/2023 10:20am Pat. NO: [id number] Referring MD: DANETTE BEATTY Site: Patient Relations Director: Sherry PimentelLUISA : 1985 Age: 37 ----- [...] EFW (lb,oz) 3 lb 13oz EFW by Hadlock([id number]) Head / Face / Neck Biometry: Continuous Still Operator 5.8mm CM 6.0mm Nasal bone 8.9mm ANATOMY ----- The following structures appear normal: Head / Neck Cranium. Head size. Head shape.Lateral ventricles. Choroid plexus. Midline falx. Cavum septi pellucidi.Cerebellum. Cisterna magna. Parenchyma. Thalami. Vermis. Neck. Face Lips. Profile. Nose. Maxilla.Mandible. Orbits. Lens. Heart / Thorax 4-chamber view. RVOT view. LVOT view.3-vessel view. 2-efmfph-phqtyyg view. Situs. Aortic arch view. Bicavalview. Ductal [...] electronic medical record, andcommunicating with other health neonatal intensive care nurse and/or carecoordination. Please see note for [...] of the placenta. us Danette Beatty MD [facility] ORDERABLE S Edited Result - Final from Last 3 Months Insurance [employer] Care Teams Environmental Science Program Director Relationship Specialty Start Date End Date No Ref-Primary, Physician PCP - General 11/25/23 Karuna Mata MD [address] [place] [address] Assigned OBGYN Provider 01/04/24
--- OUTSIDE RECORDS SUMMARY | 2024-02-08 09:19 | XMS_ITS | Encounter Summary ---
Author Organization [place] Address [address] [place] [address] Care Team Providers Care Analytical Lead Name Role Phone No Ref-Primary, Physician Primary Care Provider Encounter Details Date Type Department Care Team (Late st Contact Info) Description 11/25/2023 Medical Correspondence [facility] Health Information Management [address] [place] [address] [address] [place] [address] Scan, Non-Provider Social History Tobacco Use Types Packs/Day Years Used Date Smoking Tobacco: Never Assessed Adolescent Education Answer Date Record ed Getting School Help Needed Not on file 12/12 Comments No Sex and Gender Information Value Date Recorded Sex Assigned at Not on file Legal Sex Female 3:28 AM FORM WORKER Gender Identity Not on file Sexual Orientation Not on file documented as of this encounter Plan of Treatment Not on file documented as of this encounter Visit Diagnoses Not on filedocumented in this encounter Care Teams Analytical Lead Relationship Specialty Start Date End Date No Ref-Primary, Physician PCP - General 11/25/23 documented as of this encounter
--- OUTSIDE RECORDS SUMMARY | 2024-02-08 09:19 | XMS_ITS | Encounter Summary ---
Author Organization [place] Address [address] [place] [address] Care Team Providers Care Mixed Livestock Farm Worker Name Role Phone No Ref-Primary, Physician Primary Care Provider Reason for Referral * Diagnostic Imaging Ultrasound (Routine) - Pending Review Specialty Diagnoses / Procedures Referred By Contac t Referred To Contact Radiology. Diagnoses related condition, antepartum Procedures [facility] US Comprehensive Single Danette Beatty MD [address] [place] [address] Phone: tel: fax: Referral ID Status Reason Start Date Expiration Date V isits Requested Visits Authorized [id number] Pending Review 11/25/2023 11/24/2024 1 1 Encounter Details Date Type Department Care Team (Latest Contact Info) Description 11/25/2023 Transcribe Orders [facility] Maternal Medicine Center [place] [address] [place] [phone] Danette Beatty MD [address] [place] [address] related condition, antepartum (Primary Dx) Social History Tobacco Use Types Packs/Day Years Used Date Smoking Tobacco: Never Assessed Adolescent Education Answer Date Record ed Getting School Help Needed Not on file 12/12 Comments No Sex and Gender Information Value Date Recorded Sex Assigned at Not on file Legal 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 NO: [id number] Referring MD: DANETTE BEATTY Site: Graphite Mill Operator: Sherry Pimentel RDMS : 1985 Age: 37 [...] 3 lb 13 oz EFW by Hadlock ([id number]) Head / Face / Neck Biometry: Bpm Architect 5.8 mm CM 6.0 mm Nasal bone 8.9 mm ANATOMY ----- The following structures appear normal: Head / Neck Cranium. Head size. Head shape. Lateral ventricles. Choroid plexus. Midline falx. Cavum septi pellucidi. Cerebellum. Cisterna magna. Parenchyma. Thalami. Vermis. Neck. Face Lips. Profile. Nose. Maxilla. Mandible. Orbits. Lens. Heart / Thorax 4-chamber view. RVOT view. LVOT view. 3-vessel view. 0-ueqktp-dpecyom view. Situs. Aortic arch view. Bicaval view. [...] and communicating with other health child care attendant and/or care coordination. Please see note for details. Procedure Note Karuna Mata MD - 12/07/2023 Comprehensive ----- Pat. Name: ADRIÁN RAND Study Date: 12/07/2023 10:20am Pat. NO: [id number] Referring MD: DANETTE BEATTY Site: Graphite Mill Operator: Sherry Pimentel RDMS : 1985 Age: 37 [...] EFW (lb,oz) 3 lb 13oz EFW by Hadlock([id number]) Head / Face / Neck Biometry: Bpm Architect 5.8mm CM 6.0mm Nasal bone 8.9mm ANATOMY ----- The following structures appear normal: Head / Neck Cranium. Head size. Head shape.Lateral ventricles. Choroid plexus. Midline falx. Cavum septi pellucidi.Cerebellum. Cisterna magna. Parenchyma. Thalami. Vermis. Neck. Face Lips. Profile. Nose. Maxilla.Mandible. Orbits. Lens. Heart / Thorax 4-chamber view. RVOT view. LVOT view.3-vessel view. 1-mplelm-etfuuqc view. Situs. Aortic arch view. Bicavalview. Ductal [...] record, andcommunicating with other health child care attendant and/or carecoordination. Please see note for details. [...] of the placenta. us Danette Beatty MD [facility] ORDERABLE S Edited Result - Final documented in this encounter Visit Diagnoses Diagnosis related condition, antepartum- Primary related condition, antepartum documented in this encounter Care Teams Mixed Livestock Farm Worker Relationship Specialty Start Date End Date No Ref-Primary, Physician PCP - General 11/25/23 documented as of this encounter
--- OUTSIDE RECORDS SUMMARY | 2024-02-08 09:19 | XMS_ITS | Encounter Summary ---
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
--- OUTSIDE RECORDS SUMMARY | 2024-02-08 09:19 | XMS_ITS | Encounter Summary ---
Author Organization [place] Address [address] [place] [address] Care Team Providers Care Plant Changer Name Role Phone No Ref-Primary, Physician Primary Care Provider Reason for Visit * Reason Comments Ultrasound L2- Malformation of placenta, AMA Encounter Details Date Type Department Care Team (Late st Contact Info) Description 11/29/2023 PRE VISIT [facility] Maternal Medicine Center [place] [address] [place] [address] Paulina Guardado RN Ultrasound (L2- [...] on file Legal Sex Female 3:28 AM ASPHALT TILE FLOOR LAYER Gender Identity Not on file Sexual Orientation Not on file documented as of this encounter Plan of Treatment Not on file documented as of this encounter Visit Diagnoses Not on filedocumented in this encounter Care Teams Plant Changer Relationship Specialty Start Date End Date No Ref-Primary, Physician PCP - General 11/25/23 documented as of this encounter
== END 2024-02-08 09:17 | disposition home or self-care (01) ==
LOC: US 09:16
PROVIDERS: PCP Nurse Practitioner Family; Visit Provider Obstetrics & Gynecology
DX: O43.109 Malformation of placenta, unspecified, unspecified trimester (principal); O09.529 Supervision of elderly multigravida, unspecified trimester
CPT/HCPCS: 76819

== ENCOUNTER 2024-02-14 05:39 | Inpatient (IN) | payer OTHER, SELFPAY ==
[2024-02-14] VITALS (34 sets, daily range): BP systolic 103–137; BP diastolic 40–88; PULSE 56–80; RESP 16–20; TEMP 36.5–36.8; O2SAT 16–100; BMI 32.0; BMI 31.9
--- OUTSIDE RECORDS SUMMARY | 2024-02-14 05:42 | XMS_ITS | Encounter Summary ---
Author Organization [place] Address [address] [place] [address] Care Team Providers Care Supervisor Waterworks Name Role Phone No Ref-Primary, Physician Primary Care Provider Reason for Referral * Diagnostic Imaging Ultrasound (Routine) - Pending Review Specialty Diagnoses / Procedures Referred By Contac t Referred To Contact Radiology. Diagnoses related condition, antepartum Procedures [facility] US Comprehensive Single Danette Beatty MD [address] [place] [address] Phone: tel: fax: Referral ID Status Reason Start Date Expiration Date V isits Requested Visits Authorized [id number] Pending Review 11/25/2023 11/24/2024 1 1 Encounter Details Date Type Department Care Team (Latest Contact Info) Description 11/25/2023 Transcribe Orders [facility] Maternal Medicine Center [place] [address] [place] [address] Danette Beatty MD [address] [place] [address] related condition, antepartum (Primary Dx) Social History Tobacco Use Types Packs/Day Years Used Date Smoking Tobacco: Never Assessed Adolescent Education Answer Date Record ed Getting School Help Needed Not on file 12/12 Comments No Sex and Gender Information Value Date Recorded Sex Assigned at Not on file Legal Sex Female 3:28 AM CYTOLOGY MANAGER Gender Identity Not on file Sexual Orientation Not on file documented as of this encounter Plan of Treatment Not on file documented as of this encounter Results * [facility] US Comprehensive Single (12/07/2023 11:13 AM [...] RAND Study Date: 12/07/2023 10:20am Pat. NO: [id number] Referring MD: DANETTE BEATTY Site: Veneer Taping Machine Operator: Sherry Pimentel RDMS : 1985 Age: [...] 3 lb 13 oz EFW by Hadlock ([id number]) Head / Face / Neck Biometry: Office Support 5.8 mm CM 6.0 mm Nasal bone 8.9 mm ANATOMY ----- The following structures appear normal: Head / Neck Cranium. Head size. Head shape. Lateral ventricles. Choroid plexus. Midline falx. Cavum septi pellucidi. Cerebellum. Cisterna magna. Parenchyma. Thalami. Vermis. Neck. Face Lips. Profile. Nose. Maxilla. Mandible. Orbits. Lens. Heart / Thorax 4-chamber view. RVOT view. LVOT view. 3-vessel view. 3-cusaqa-pdomlmk view. Situs. Aortic arch view. Bicaval view. [...] medical record, and communicating with other health critical care paramedic and/or care coordination. Please see note for details. Procedure Note Karuna Mata MD - 12/07/2023 Comprehensive ----- Pat. Name: ADRIÁN RAND Study Date: 12/07/2023 10:20am Pat. NO: [id number] Referring MD: DANETTE BEATTY Site: Veneer Taping Machine Operator: Sherry Pimentel RDMS : 1985 Age: [...] EFW (lb,oz) 3 lb 13oz EFW by Hadlock([id number]) Head / Face / Neck Biometry: Office Support 5.8mm CM 6.0mm Nasal bone 8.9mm ANATOMY ----- The following structures appear normal: Head / Neck Cranium. Head size. Head shape.Lateral ventricles. Choroid plexus. Midline falx. Cavum septi pellucidi.Cerebellum. Cisterna magna. Parenchyma. Thalami. Vermis. Neck. Face Lips. Profile. Nose. Maxilla.Mandible. Orbits. Lens. Heart / Thorax 4-chamber view. RVOT view. LVOT view.3-vessel view. 4-qmmsma-sounmxt view. Situs. Aortic arch view. Bicavalview. Ductal [...] electronic medical record, andcommunicating with other health critical care paramedic and/or carecoordination. Please see note for details. [...] of the placenta. us Danette Beatty MD [facility] ORDERABLE S Edited Result - Final documented in this encounter Visit Diagnoses Diagnosis related condition, antepartum- Primary related condition, antepartum documented in this encounter Care Teams Supervisor Waterworks Relationship Specialty Start Date End Date No Ref-Primary, Physician PCP - General 11/25/23 documented as of this encounter
--- OUTSIDE RECORDS SUMMARY | 2024-02-14 05:42 | XMS_ITS | Encounter Summary ---
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
--- OUTSIDE RECORDS SUMMARY | 2024-02-14 05:42 | XMS_ITS | Encounter Summary ---
Author Organization [place] Address [address] [place] [address] Care Team Providers Care Property Investor Name Role Phone No Ref-Primary, Physician Primary Care Provider Reason for Referral * Consultation (Routine: Next available opening) - Pending Review Specialty Diagnoses / Procedures Referred By Asael gordon Referred To Contact Diagnoses related condition, antepartum Danette Rivera MD [address] [place] [address] Phone: tel: fax: [facility] Maternal Medicine Center [place] [address] [place] [address] Phone: tel: fax: Referral ID Status Reason Start Date Expiration Date V isits Requested Visits Authorized [id number] Pending Review 11/25/2023 11/24/2024 1 1 Question Answer Preferred Location: [facility] [place] NAKUL 02/18/2024 Ultrasound Comprehensive US (>than 18 [...] No fax [facility] - Danette Rivera - [phone] Comments There is no height or weight [...] Orders [facility] Maternal Medicine [facility] [place] [address] [place] [address] Danette Rivera MD [address] [place] [address] related condition, antepartum (Primary Dx) Social History Tobacco Use Types Packs/Day Years Used Date Smoking Tobacco: Never Assessed Adolescent Education Answer Date Record ed Getting School Help Needed Not on file 12/12 Comments No Sex and Gender Information Value Date Recorded Sex Assigned at Not on file Legal Sex Female 3:28 AM CUFF STITCHER Gender Identity Not on file Sexual Orientation [...] Primary documented in this encounter Care Teams Property Investor Relationship Specialty Start Date End Date No Ref-Primary, Physician PCP - General 11/25/23 documented as of this encounter
--- OUTSIDE RECORDS SUMMARY | 2024-02-14 05:42 | XMS_ITS | Encounter Summary ---
Author Organization [place] Address [address] [place] [address] Care Team Providers Care Community Outreach Specialist Name Role Phone No Ref-Primary, Physician Primary Care Provider Encounter Details Date Type Department Care Team (Late st Contact Info) Description 11/24/2023 Medical Correspondence [facility] Health Information Management [address] [place] [address] [address] [place] [address] Scan, Non-Provider Social History Tobacco Use Types Packs/Day Years Used Date Smoking Tobacco: Never Assessed Adolescent Education Answer Date Record ed Getting School Help Needed Not on file 12/12 Comments No Sex and Gender Information Value Date Recorded Sex Assigned at Not on file Legal 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
--- OUTSIDE RECORDS SUMMARY | 2024-02-14 05:42 | XMS_ITS | Encounter Summary ---
Author Organization [place] Address [facility] [place] [address] Care Team Providers Care Scowman Name Role Phone No Ref-Primary, Physician Primary Care Provider Reason for Visit * Reason Comments Ultrasound L2-malformation of p lacenta, ?placental velez Encounter Details Date Type Department Care Team (Late st Contact Info) Description 12/07/2023 10:45 AM CDT Office Visit [facility] Maternal Medicine Center [place] [address] [place] [address] Danette Rivera MD [address] [place] [address] Karuna Mata MD [address] [place] [address] [address] [place] [address] Multigravida of advanced maternal age [...] on file Legal Sex Female 3:28 AM SYSTEM INTEGRATION 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 For a detailed report of the ultrasound examination, please see the ultrasound report which can be found under the imaging tab. If you have questions regarding today's evaluation or if we can be of further service, please contact the Maternal- Medicine Center. Karuna Mata MD Pattern Gater, TANDEM MILL OPERATOR Maternal- Medicine [phone] (Pager) documented in this encounter Nursing Notes * Agnieszka Monge, RN - 12/07/2023 10:45 AM CDT Patient presents to [facility] for L2 at 29w4d due to malformation of placenta, ?placental velez. Positive movement. Denies LOF, vaginal bleeding or cramping/contractions. SBAR given to [facility] MD, see their note in Epic. documented [...] trimester documented in this encounter Care Teams Scowman Relationship Specialty Start Date End Date No Ref-Primary, Physician PCP - General 11/25/23 documented as of this encounter
--- OUTSIDE RECORDS SUMMARY | 2024-02-14 05:42 | XMS_ITS | Referral Summary ---
Author Organization [facility] Address [address] [place] [address] Care Team Providers Care Environmental Health Safety Engineer Name Role Phone No Ref-Primary, Physician Primary Care Provider Karuna Mata MD Unavailable [phone] Encounters Date Type Department Care Team Description 12/07/2023 Travel 12/07/2023 10:45 AM CDT Office Visit [facility] Maternal Medicine [facility] [address] [place] [phone] Danette Sage MD Sabol, Bethany, MD Multigravida of advanced maternal age in second trimester (Primary Dx); 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; Bilobate placenta, third trimester 12/07/2023 10:15 AM CDT - 12/07/2023 11:59 PM CDT Hospital Encounter [facility] Maternal Medicine [facility] [address] [place] [phone] Danette Sage MD Sabol, Bethany, MD related condition, antepartum Discharge Disposition: Home or Self Care 11/29/2023 PRE VISIT [facility] Medicine [facility] [address] [place] [phone] Paulina Guardado RN Ultrasound (L2- Malformation of placenta, AMA) 11/25/2023 Medical Correspondence [facility] Information Management [address] [place] [address] [address] [place] [address] Scan, Non-Provider 11/25/2023 Transcribe Orders [facility] M[facility] [address] [place] [phone] Danette Sage MD related condition, antepartum (Primary Dx) 11/25/2023 Transcribe Orders [facility] Maternal Medicine [facility] [address] [place] [phone] Danette Sage MD related condition, antepartum (Primary Dx) 11/24/2023 Medical Correspondence [facility] Information Management [address] [facility] [place] [place] [address] [place] [address] Scan, Non-Provider from Last 3 Months Social History Tobacco Use Types Packs/Day Years Used Date Smoking Tobacco: Never Assessed Adolescent Education Answer Date Record ed Getting School Help Needed Not on file 12/12 Estimated Date of Delivery Comme nts Yes 02/21/2024 Based on Ultraso und Sex and Gender Information Value Date Recorded Sex Assigned at Not on file Legal Sex Female 3:28 AM PUMP STITCHER Gender Identity Not on file Sexual Orientation Not on file Plan of Treatment Not on file Procedures Procedure Name Priority Date/Time Associated Diagnosis Comments [facility] US COMPREHENSIVE SINGLE Routine 12/07/2023 11:13 AM CDT related condition, antepartum from Last 3 Months Results * [facility] US Comprehensive Single (12/07/2023 11:13 AM [...] RAND Study Date: 12/07/2023 10:20am Pat. NO: [id number] Referring MD: DANETTE BETATY Site: [id number] Administrator: Sherry Pimentel RDMS : 1985 Age: 37 [...] 5d Hadlock Humerus 52.1 mm 30w 2d [facility] Weight Calculation: EFW 1,726 g 96% Hadlock EFW (lb,oz) 3 lb 13 oz EFW by Hadlock ([id number]) Head / Face / Neck Biometry: Contracting Engineer 5.8 mm CM 6.0 mm Nasal bone 8.9 mm ANATOMY ----- The following structures appear normal: Head / Neck Cranium. Head size. Head shape. Lateral ventricles. Choroid plexus. Midline falx. Cavum septi pellucidi. Cerebellum. Cisterna magna. Parenchyma. Thalami. Vermis. Neck. Face Lips. Profile. Nose. Maxilla. Mandible. Orbits. Lens. Heart / Thorax 4-chamber view. RVOT view. LVOT view. 3-vessel view. 8-gsiofl-bjqtqxx view. Situs. Aortic arch view. Bicaval view. [...] record, and communicating with other health care team coordinator scheduler and/or care coordination. Please see note for details. Procedure Note Karuna Mata MD - 12/07/2023 Comprehensive ----- Pat. Name: ADRIÁN RAND Study Date: 12/07/2023 10:20am Pat. NO: [id number] Referring MD: DANETTE BEATTY Site: [id number] Administrator: Sherry PimentelLUISA : 1985 Age: 37 ----- [...] EFW (lb,oz) 3 lb 13oz EFW by Hadlock([id number]) Head / Face / Neck Biometry: Contracting Engineer 5.8mm CM 6.0mm Nasal bone 8.9mm ANATOMY ----- The following structures appear normal: Head / Neck Cranium. Head size. Head shape.Lateral ventricles. Choroid plexus. Midline falx. Cavum septi pellucidi.Cerebellum. Cisterna magna. Parenchyma. Thalami. Vermis. Neck. Face Lips. Profile. Nose. Maxilla.Mandible. Orbits. Lens. Heart / Thorax 4-chamber view. RVOT view. LVOT view.3-vessel view. 4-anqhki-mqpnjul view. Situs. Aortic arch view. Bicavalview. Ductal [...] medical record, andcommunicating with other health care team coordinator scheduler and/or carecoordination. Please see note for details. [...] of the placenta. us Danette Beatty MD [facility] ORDERABLE S Edited Result - Final from Last 3 Months Insurance [employer] Care Teams Environmental Health Safety Engineer Relationship Specialty Start Date End Date No Ref-Primary, Physician PCP - General 11/25/23 Karuna Mata MD [address] [place] [address] Assigned OBGYN Provider 01/04/24
--- OUTSIDE RECORDS SUMMARY | 2024-02-14 05:42 | XMS_ITS | Referral Summary ---
Author Organization [facility] Address [address] [place] [address] Care Team Providers Care Sanding Line Operator Name Role Phone None Reported, Pcp Primary Care Provider Unavail able Source Comments Patient records contain information from all sites at [facility]. For routine questions regarding patient records, call [phone] during business hours, M-F 8:00 AM - 5:00 PM Central Time. Record requests for emergency care only can be directed to [phone] at any time.[facility] Allergies No known active allergies Medications 25/iron [...] = 0.6 oz pur e alcohol) WEEKLY [facility] Utilities Answer Date Recorded In the [...] week 07/11/2021 How often do you attend [facility] or baptism services? 1 to 4 times per year 07/11/2021 Do you belong to any clubs o r organizations such as cheondoism groups, unions, fraternal or athletic groups, or [...] and heating? Not hard at all 07/11/2021 [facility] of Occupat ional Health - Occupational Stress [...] PM CDT Legal Sex Female 2:11 AM PROCESS INSPECTOR Gender Identity Female 07/11/2021 7:48 PM CDT [...] PT SOURCE, B Routine 02/09/2016 9:53 PM PROCESS INSPECTOR from Last 3 Months or Most Recently Relevant to Health Maintenance Results * HIV-1/HIV-2 Ab Rapid (02/09/2016 9:53 PM PROCESS INSPECTOR) HIV-1/HIV-2 Ab Rapid, P Negative Negative [facility] 02/09/2016 9:53 PM PROCESS INSPECTOR 02/09/2016 9:53 PM PROCESS INSPECTOR us Martín Woods M.D., M.P.H. LAB MICROBIOLOGY - BLOOD ORDERABLES Final Result [facility] [address] [place] [address], [facility] from Last 3 Months or Most Recently Relevant to Health Maintenance Insurance [employer]OYEE Care Teams Sanding Line Operator Relationship Specialty Start Date End Date None Reported, Pcp PCP - General Family Medicine 10/09/22
--- OUTSIDE RECORDS SUMMARY | 2024-02-14 05:42 | XMS_ITS | Clinical Summary ---
Author Organization [facility] Address [address] [place] [address] Care Team Providers Care Ground Crew Supervisor Name Role Phone No Ref-Primary, Physician Primary Care Provider Karuna Mata MD Unavailable [phone] Encounters Date Type Department Care Team Description 12/07/2023 10:45 AM CDT Office Visit [facility] Maternal Medicine [facility] [address] [place] [address] Danette Sage MD Sabol, Bethany, MD Multigravida of advanced maternal age in second trimester (Primary Dx); 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; Bilobate placenta, third trimester 12/07/2023 10:15 AM CDT - 12/07/2023 11:59 PM CDT Hospital Encounter [facility] Maternal Medicine [facility] [address] [place] [phone] Danette Sage MD Sabol, Bethany, MD related condition, antepartum Discharge Disposition: Home or Self Care 12/07/2023 Travel 11/29/2023 PRE VISIT [facility] Medicine [facility] [address] [place] [phone] Paulina Guardado RN Ultrasound (L2- Malformation of placenta, AMA) 11/25/2023 Medical Correspondence [facility] Information Management [address] [place] [address] [address] [place] [address] Scan, Non-Provider 11/25/2023 Transcribe Orders [facility] Maternal Medicine [facility] [address] [place] [address] Danette Sage MD related condition, antepartum (Primary Dx) 11/25/2023 Transcribe Orders [facility] Maternal Medicine [facility] [address] [place] [address] Danette Sage MD related condition, antepartum (Primary Dx) 11/24/2023 Medical Correspondence [facility] Information Management [address] [facility] [address] [place] [address] Scan, Non-Provider from Last 3 Months Social History Tobacco Use Types Packs/Day Years Used Date Smoking Tobacco: Never Assessed Adolescent Education Answer Date Record ed Getting School Help Needed Not on file 12/12 Estimated Date of Delivery Comme nts Yes 02/21/2024 Based on Ultraso und Sex and Gender Information Value Date Recorded Sex Assigned at Not on file Legal Sex Female 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 NO: [id number] Referring MD: DANETTE BEATTY Site: Compacting Machine Operator/Tender: Sherry Pimentel RDMS : 1985 Age: 37 [...] 3 lb 13 oz EFW by Hadlock ([id number]) Head / Face / Neck Biometry: Client Hr Manager 5.8 mm CM 6.0 mm Nasal bone 8.9 mm ANATOMY ----- The following structures appear normal: Head / Neck Cranium. Head size. Head shape. Lateral ventricles. Choroid plexus. Midline falx. Cavum septi pellucidi. Cerebellum. Cisterna magna. Parenchyma. Thalami. Vermis. Neck. Face Lips. Profile. Nose. Maxilla. Mandible. Orbits. Lens. Heart / Thorax 4-chamber view. RVOT view. LVOT view. 3-vessel view. 6-xpjmmn-ydfwump view. Situs. Aortic arch view. Bicaval view. [...] medical record, and communicating with other health patient care associate and/or care coordination. Please see note for details. Procedure Note Karuna Mata MD - 12/07/2023 Comprehensive ----- Pat. Name: ADRIÁN RAND Study Date: 12/07/2023 10:20am Pat. NO: [id number] Referring MD: DANETTE BEATTY Site: Compacting Machine Operator/Tender: Sherry Pimentel RDMS : 1985 Age: 37 [...] EFW (lb,oz) 3 lb 13oz EFW by Yumiko([id number]) Head / Face / Neck Biometry: Client Hr Manager 5.8mm CM 6.0mm Nasal bone 8.9mm ANATOMY ----- The following structures appear normal: Head / Neck Cranium. Head size. Head shape.Lateral ventricles. Choroid plexus. Midline falx. Cavum septi pellucidi.Cerebellum. Cisterna magna. Parenchyma. Thalami. Vermis. Neck. Face Lips. Profile. Nose. Maxilla.Mandible. Orbits. Lens. Heart / Thorax 4-chamber view. RVOT view. LVOT view.3-vessel view. 6-xvadrv-plpszng view. Situs. Aortic arch view. Bicavalview. Ductal [...] electronic medical record, andcommunicating with other health patient care associate and/or carecoordination. Please see note for [...] of the placenta. us Danette Beatty MD [facility] ORDERABLE S Edited Result - Final from Last 3 Months Insurance [employer] Care Teams Ground Crew Supervisor Relationship Specialty Start Date End Date No Ref-Primary, Physician PCP - General 11/25/23 Karuna Mata MD [address] [place] [address] Assigned OBGYN Provider 01/04/24
--- OUTSIDE RECORDS SUMMARY | 2024-02-14 05:42 | XMS_ITS | Clinical Summary ---
Author Organization [facility] Address [address] [place] [address] Care Team Providers Care Estimation Manager Name Role Phone None Reported, Pcp Primary Care Provider Unavail able Source Comments Patient records contain information from all sites at [facility]. For routine questions regarding patient records, call [phone] during business hours, M-F 8:00 AM - 5:00 PM Central Time. Record requests for emergency care only can be directed to [phone] at any time.[facility] Allergies No known active allergies [...] = 0.6 oz pur e alcohol) WEEKLY [facility] Utilities Answer Date Recorded In the past 12 months has e [employer], gas, oil, or water [employer] threatened to shut off services in your [...] often do you attend chur ch or spiritism services? 1 to 4 times per year 07/11/2021 Do you belong to any clubs o r organizations such as orthodoxy groups, unions, fraternal or athletic groups, or [...] and heating? Not hard at all 07/11/2021 [facility] [place] of Occupat ional Health - Occupational Stress [...] PM CDT Legal Sex Female 2:11 AM SUPERVISOR BRIAR SHOP Gender Identity Female 07/11/2021 7:48 PM CDT [...] PT SOURCE, B Routine 02/09/2016 9:53 PM SUPERVISOR BRIAR SHOP from Last 3 Months or Most Recently Relevant to Health Maintenance Results * HIV-1/HIV-2 Ab Rapid (02/09/2016 9:53 PM SUPERVISOR BRIAR SHOP) HIV-1/HIV-2 Ab Rapid, P Negative Negative [facility] 02/09/2016 9:53 PM SUPERVISOR BRIAR SHOP 02/09/2016 9:53 PM SUPERVISOR BRIAR SHOP us Martín Woods M.D., M.P.H. LAB MICROBIOLOGY - BLOOD ORDERABLES Final Result [facility] [address] [place] [address], [facility] from Last 3 Months or Most Recently Relevant to Health Maintenance Insurance [employer] EMPLOYEE Care Teams Estimation Manager Relationship Specialty Start Date End Date None Reported, Pcp PCP - General Family Medicine 10/09/22
--- OUTSIDE RECORDS SUMMARY | 2024-02-14 05:42 | XMS_ITS ---
Author Organization [facility] Address [address] [place] [address] Care Team Providers Care Sliver Lapper Name Role Phone Unavailable Unavailable Unavailable Surgery Details Not on file Complications Check Surgery Details section. Procedure Estimated Blood Loss Check Surgery Details section. Procedure Findings Check Surgery Details section. Procedure Specimens Taken Check Surgery Details section.
--- OUTSIDE RECORDS SUMMARY | 2024-02-14 05:42 | XMS_ITS | Encounter Summary ---
Author Organization [facility] Address [address] [place] [address] Care Team Providers Care Retail Loss Prevention Specialist Name Role Phone No Ref-Primary, Physician Primary Care Provider Encounter Details Date Type Department Care Team (Late st Contact Info) Description 11/25/2023 Medical Correspondence [facility] Health Information Management [address] [place] [address] [address] [place] [address] Scan, Non-Provider Social History Tobacco Use Types Packs/Day Years Used Date Smoking Tobacco: Never Assessed Adolescent Education Answer Date Record ed Getting School Help Needed Not on file 12/12 Comments No Sex and Gender Information Value Date Recorded Sex Assigned at Not on file Legal Sex Female 3:28 AM CORONER TECHNICIAN Gender Identity Not on file Sexual Orientation Not on file documented as of this encounter Plan of Treatment Not on file documented as of this encounter Visit Diagnoses Not on filedocumented in this encounter Care Teams Retail Loss Prevention Specialist Relationship Specialty Start Date End Date No Ref-Primary, Physician PCP - General 11/25/23 documented as of this encounter
--- OUTSIDE RECORDS SUMMARY | 2024-02-14 05:42 | XMS_ITS | Encounter Summary ---
Author Organization [facility] Address [address] [place] [address] Care Team Providers Care Service Aide Name Role Phone No Ref-Primary, Physician Primary Care Provider Reason for Referral * Diagnostic Imaging Ultrasound (Routine) - Pending Review Specialty Diagnoses / Procedures Referred By Marquiseac t Referred To Contact Radiology. Diagnoses related condition, antepartum Procedures [facility] US Comprehensive Single Danette Beatty MD [address] [place] [address] Phone: tel: fax: Referral ID Status Reason Start Date Expiration Date V isits Requested Visits Authorized [id number] Pending Review 11/25/2023 11/24/2024 1 1 Reason for Visit * Diagnostic Imaging Ultrasound (Routine) - Pending Review Specialty Diagnoses / Procedures Referred By Marquiseac t Referred To Contact Radiology. Diagnoses related condition, antepartum Procedures [facility] US Comprehensive Single Danette Beatty MD [address] [place] [address] Phone: tel: fax: Referral ID Status Reason Start Date Expiration Date V isits Requested Visits Authorized [id number] Pending Review 11/25/2023 11/24/2024 1 1 Encounter Details Date Type Department Care Team (Latest Contact Info) Description 12/07/2023 10:15 AM CDT - 12/07/2023 11:59 PM CDT Hospital Encounter [facility] Maternal Medicine [facility] [address] [place] [address] Danette Beatty MD [address] [place] [address] Karuna Mata MD [address] [place] [address] related condition, antepartum Discharge Disposition: [...] file Legal Sex Female 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 NO: [id number] Referring MD: DANETTE BEATTY Site: Corncob Pipes Assembler: Sherry Pimentel RDMS : 1985 Age: 37 [...] 3 lb 13 oz EFW by Hadlock ([id number]) Head / Face / Neck Biometry: Rug Setter Axminster 5.8 mm CM 6.0 mm Nasal bone 8.9 mm ANATOMY ----- The following structures appear normal: Head / Neck Cranium. Head size. Head shape. Lateral ventricles. Choroid plexus. Midline falx. Cavum septi pellucidi. Cerebellum. Cisterna magna. Parenchyma. Thalami. Vermis. Neck. Face Lips. Profile. Nose. Maxilla. Mandible. Orbits. Lens. Heart / Thorax 4-chamber view. RVOT view. LVOT view. 3-vessel view. 6-vvojvv-vgdmqhz view. Situs. Aortic arch view. Bicaval view. [...] medical record, and communicating with other health urgent care physician assistant and/or care coordination. Please see note for details. Procedure Note Karuna Mata MD - 12/07/2023 Comprehensive ----- Pat. Name: ADRIÁN RAND Study Date: 12/07/2023 10:20am Pat. NO: [id number] Referring MD: DANETTE BEATTY Site: Corncob Pipes Assembler: Sherry PimentelLUISA : 1985 Age: 37 ----- [...] EFW (lb,oz) 3 lb 13oz EFW by Hadlock([id number]) Head / Face / Neck Biometry: Rug Setter Axminster 5.8mm CM 6.0mm Nasal bone 8.9mm ANATOMY ----- The following structures appear normal: Head / Neck Cranium. Head size. Head shape.Lateral ventricles. Choroid plexus. Midline falx. Cavum septi pellucidi.Cerebellum. Cisterna magna. Parenchyma. Thalami. Vermis. Neck. Face Lips. Profile. Nose. Maxilla.Mandible. Orbits. Lens. Heart / Thorax 4-chamber view. RVOT view. LVOT view.3-vessel view. 8-eqmqet-oqksisv view. Situs. Aortic arch view. Bicavalview. Ductal [...] electronic medical record, andcommunicating with other health urgent care physician assistant and/or carecoordination. Please see note for details. [...] surface of the placenta. Danette Beatty MD [facility] ORDERABLE S Edited Result - Final documented in this encounter Visit Diagnoses Diagnosis related condition, antepartum documented in this encounter Care Teams Service Aide Relationship Specialty Start Date End Date No Ref-Primary, Physician PCP - General 11/25/23 documented as of this encounter
--- OUTSIDE RECORDS SUMMARY | 2024-02-14 05:42 | XMS_ITS | Encounter Summary ---
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
[2024-02-14 06:49] LABS: Hemoglobin* 11.3 gm/dL (12.0-16.0)
--- NOTE | 2024-02-14 07:12 | W.PM.H&PU ---
History & Physical Update History & Physical Update H&P Reviewed and patient assessed: The following changes are noted below H&P Updates: Ultrasound performed which verified the fetus in a non vertex presentation: Back down transverse with the head on maternal right.
--- NOTE | 2024-02-14 07:12 | PM.PROC ---
Procedure Note Time Seen by Provider: 08:39 Date Seen: 02/14/24 Date of procedure: 02/14/24 Will [facility] bill your pro fee for this procedure?: Yes Procedure: Preoperative diagnosis: 38-year-old 3 para 2 at 39 and 0/7 weeks Back down, transverse with head on maternal right, declined attempted ECV Undesired fertility Postoperative diagnosis: Same, Vertex presentation at delivery. Procedure: Primary low-transverse section, bilateral salpingectomy Anesthesia: Spinal Surgeon: Ute Rasmussen MD Shag Truck Driver: [] Quantitative blood loss: [] mL IV Fluid: [] mL Urine Output: [] mL Specimen: 1. Placenta. 2. Bilateral fallopian tubes Drain(s): Garcia to gravity Indications: Bedside ultrasound performed prior to the procedure: Transverse back down with the head on maternal right. Undesired fertility. Findings: A live male infant was delivered from the direct OA position at 8:00 a.m.. Apgars were 8 at 1 min and 9 at 5 min, respectively. Infant weight: 8 lb 7 oz. Nuchal cord(s): Yes, single nuchal cord easily reduced prior to delivery of the infant's shoulders at the surgical field. The placenta was delivered manually and complete at 8:02 a.m.. Amniotic fluid: Clear. Normal uterus, fallopian tubes and ovaries were noted. Other findings: Bilobed placenta with velamentous insertion. Procedure: Ute was taken to the OR where Spinal anesthetic was found be adequate. A Garcia catheter was placed. The patient was then placed in the dorsal supine position with a leftward tilt. She was then prepped and draped in a normal sterile manner. A Pfannenstiel skin incision was made and carried through sharply to the underlying layer of fascia. Fascia was incised in the midline and this incision carried laterally with Carty scissors. The superior aspect of fascial incision was grasped with David clamps, tented up, and the rectus muscles dissected off with a combination of blunt and sharp dissection. The inferior aspect of the fascial incision was grasped with David clamps, tented up and again the rectus muscles dissected off with a combination of blunt and sharp dissection. The rectus muscles were in the midline. The peritoneum was entered bluntly. This opening was extended bluntly. An Joe-O self-retaining retractor was placed. A bladder flap was not created. Uterus was incised in a low transverse manner in the midline. This incision carried laterally with blunt pressure on the inferior and superior aspects of the uterine incision. The amniotic sac was ruptured. The 's head and body was delivered atraumatically. The infant was shown to the patient and her support person and then handed to waiting pediatric and nursing staff. The placenta was delivered manually. The uterus was cleared of clots and debris. The uterine incision was re-approximated with the uterus in vivo. The 1st layer using 0-Vicryl in a running, locked manner. The 2nd layer using 0-Monocryl in a running, vertical, imbricating layer. Additional sutures needed for hemostasis: No. Excellent hemostasis was verified. Attention was then turned to performing the bilateral salpingectomy. The uterus was exteriorized to visualize fallopian tubes and ovaries. There was an abrasion at the fundus of the uterus right of midline that required 6 figure of 8 sutures using 2-0 chromic. The left fallopian tube was identified, grasped with 2 Rosario clamps and followed to the fimbriated end of the fallopian tube. The LigaSure Exact dissecting forceps was used to remove the fallopian tube from the cornua and broad ligament by sequential pedicles. The pedicles were started at the fimbriated end of the tube and extended toward the cornua. The fallopian tube was amputated from the cornual a and sent to pathology. Hemostasis of the pedicles was obtained using bipolar cautery and a DeBakey forceps. The right fallopian tube was then identified, grasped with 2 [place] clamps and removed in the same manner as the right fallopian tube. All pedicles were visualized and hemostasis obtained using bipolar cautery with a DeBakey clamp. The uterine incision was reinspected and noted to be hemostatic. The Joe retractor was removed. The rectus muscles were not reapproximated. The rectus muscles were then closely inspected to verify hemostasis. Hemostasis was obtained with bipolar cautery. The fascia was then re-approximated using 0-Maxon loop in a running manner. The subcutaneous tissue was then irrigated with saline and hemostasis obtained with bipolar cautery. The subcutaneous tissue was re-approximated using 3-0 plain gut interrupted sutures in a single layer. The skin was reapproximated using 4-0 Monocryl in a running subcuticular manner. Exofin skin adhesive and a Mepiplex dressing were applied. The patient tolerated this procedure well. Sponge, lap and instrument counts were correct x2 active to the procedure. Patient was taken to the recovery area in stable condition. The patient received 2g of IV Ancef prior to skin incision. Patient received 1 g IV TXA after cord clamp. Anesthesia: spinal Pathology: specimen obtained, sent to pathology Condition: stable Disposition: floor
[2024-02-14] MEDS: CEFAZOLIN 2 GM INJ IVP (07:38)
--- OUTSIDE RECORDS SUMMARY | 2024-02-14 08:35 | XMS_ITS | Encounter Summary ---
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
--- OUTSIDE RECORDS SUMMARY | 2024-02-14 08:35 | XMS_ITS | Referral Summary ---
Author Organization [facility] Address [address] [place] [address] Care Team Providers Care Gun Barrel Finisher Name Role Phone No Ref-Primary, Physician Primary Care Provider Karuna Mata MD Unavailable [phone] Encounters Date Type Department Care Team Description 12/07/2023 Travel 12/07/2023 10:45 AM CDT Office Visit [facility] Maternal Medicine [facility] [address] [facility] [address] [place] [address] Danette Sage MD Sabol, Bethany, MD Multigravida of advanced maternal age in second trimester (Primary Dx); 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; Bilobate placenta, third trimester 12/07/2023 10:15 AM CDT - 12/07/2023 11:59 PM CDT Hospital Encounter [facility] Maternal Medicine [facility] [address] [facility] [address] [place] [phone] Danette Sage MD Sabol, Bethany, MD related condition, antepartum Discharge Disposition: Home or Self Care 11/29/[address] [facility] Medicine [facility] [address] [facility] [address] [place] [phone] Paulina Guardado RN Ultrasound (L2- Malformation of placenta, AMA) 11/25/2023 Medical Correspondence [facility] Information Management [address] [place] [address] [address] [place] [address] Scan, Non-Provider 11/25/2023 Transcribe Orders [facility] [place] [address] [place] [address] Danette Sage MD related condition, antepartum (Primary Dx) 11/25/2023 Transcribe Orders [facility] Maternal Medicine [facility] [address] [place] [phone] Danette Sage MD related condition, antepartum (Primary Dx) 11/24/2023 Medical Correspondence [facility] Information Management [address] 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 NO: [id number] Referring MD: DANETTE BEATTY Site: Lumber Inspector: Sherry Pimentel RDMS : 1985 Age: 37 [...] 5d Hadlock Humerus 52.1 mm 30w 2d [facility] Weight Calculation: EFW 1,726 g 96% Hadlock EFW (lb,oz) 3 lb 13 oz EFW by Hadlock ([id number]) Head / Face / Neck Biometry: Multi Operation Machine Operator 5.8 mm CM 6.0 mm Nasal bone 8.9 mm ANATOMY ----- The following structures appear normal: Head / Neck Cranium. Head size. Head shape. Lateral ventricles. Choroid plexus. Midline falx. Cavum septi pellucidi. Cerebellum. Cisterna magna. Parenchyma. Thalami. Vermis. Neck. Face Lips. Profile. Nose. Maxilla. Mandible. Orbits. Lens. Heart / Thorax 4-chamber view. RVOT view. LVOT view. 3-vessel view. 6-qqcarw-zptpoxe view. Situs. Aortic arch view. Bicaval view. [...] medical record, and communicating with other health manager primary care and/or care coordination. Please see note for details. Procedure Note Karuna Mata MD - 12/07/2023 Comprehensive ----- Pat. Name: ADRIÁN RAND Study Date: 12/07/2023 10:20am Pat. NO: [id number] Referring MD: DANETTE BEATTY Site: Lumber Inspector: Sherry PimentelLUISA : 1985 Age: 37 ----- [...] EFW (lb,oz) 3 lb 13oz EFW by Hadlock([id number]) Head / Face / Neck Biometry: Multi Operation Machine Operator 5.8mm CM 6.0mm Nasal bone 8.9mm ANATOMY ----- The following structures appear normal: Head / Neck Cranium. Head size. Head shape.Lateral ventricles. Choroid plexus. Midline falx. Cavum septi pellucidi.Cerebellum. Cisterna magna. Parenchyma. Thalami. Vermis. Neck. Face Lips. Profile. Nose. Maxilla.Mandible. Orbits. Lens. Heart / Thorax 4-chamber view. RVOT view. LVOT view.3-vessel view. 8-syvtan-msxdjix view. Situs. Aortic arch view. Bicavalview. Ductal [...] electronic medical record, andcommunicating with other health manager primary care and/or carecoordination. Please see note for [...] of the placenta. us Danette Beatty MD [facility] ORDERABLE S Edited Result - Final from Last 3 Months Insurance [employer] Care Teams Gun Barrel Finisher Relationship Specialty Start Date End Date No Ref-Primary, Physician PCP - General 11/25/23 Karuna Mata MD [address] [place] [address] Assigned OBGYN Provider 01/04/24
--- OUTSIDE RECORDS SUMMARY | 2024-02-14 08:35 | XMS_ITS | Encounter Summary ---
Author Organization [facility] Address [address] [place] [address] Care Team Providers Care Case Making Machine Operator Name Role Phone No Ref-Primary, Physician Primary Care Provider Encounter Details Date Type Department Care Team (Late st Contact Info) Description 11/25/2023 Medical Correspondence [facility] Health Information Management [address] [place] [address] [address] [place] [address] Scan, Non-Provider Social History Tobacco Use Types Packs/Day Years Used Date Smoking Tobacco: Never Assessed Adolescent Education Answer Date Record ed Getting School Help Needed Not on file 12/12 Comments No Sex and Gender Information Value Date Recorded Sex Assigned at Not on file 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
--- OUTSIDE RECORDS SUMMARY | 2024-02-14 08:35 | XMS_ITS | Encounter Summary ---
Author Organization [facility] Address Counts include 234 beds at the [facility] [place] [address] Care Team Providers Care Sr. 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 For a detailed report of the ultrasound examination, please see the ultrasound report which can be found under the imaging tab. If you have questions regarding today's evaluation or if we can be of further service, please contact the Maternal- Medicine Center. Karuna Mata MD Construction Foreman, CHILD WELFARE CASEWORKER Maternal- Medicine [phone] (Pager) documented in this encounter Nursing Notes * Agnieszka Monge, RN - 12/07/2023 10:45 AM CDT Patient presents to [facility] for L2 at 29w4d due to malformation of placenta, ?placental velez. Positive movement. Denies LOF, vaginal bleeding or cramping/contractions. SBAR given to [facility] MD, see their note in Epic. [...] trimester documented in this encounter Care Teams Sr. Payroll Processor Relationship Specialty Start Date End Date No Ref-Primary, Physician PCP - General 11/25/23 documented as of this encounter
--- OUTSIDE RECORDS SUMMARY | 2024-02-14 08:35 | XMS_ITS | Referral Summary ---
Author Organization [facility] Address [address] [place] [address] Care Team Providers Care Kick Boxer Name Role Phone None Reported, Pcp Primary Care Provider Unavail able Source Comments Patient records contain information from all sites at [facility]. For routine questions regarding patient records, call [phone] during business hours, M-F 8:00 AM - 5:00 PM Central Time. Record requests for emergency care only can be directed to [phone] at any time.[facility] Allergies No known active allergies Medications 25/iron [...] = 0.6 oz pur e alcohol) WEEKLY [facility] Utilities Answer Date Recorded In the past [...] week 07/11/2021 How often do you attend [facility] or yazdanism services? 1 to 4 times per year 07/11/2021 Do you belong to any clubs o r organizations such as catholic groups, unions, fraternal or athletic groups, or [...] and heating? Not hard at all 07/11/2021 [facility] of Occupat ional Health - Occupational Stress [...] PM CDT Legal Sex Female 2:11 AM SOLAR SALES REPRESENTATIVE AND ASSESSOR Gender Identity Female 07/11/2021 7:48 PM CDT [...] PT SOURCE, B Routine 02/09/2016 9:53 PM SOLAR SALES REPRESENTATIVE AND ASSESSOR from Last 3 Months or Most Recently Relevant to Health Maintenance Results * HIV-1/HIV-2 Ab Rapid (02/09/2016 9:53 PM SOLAR SALES REPRESENTATIVE AND ASSESSOR) HIV-1/HIV-2 Ab Rapid, P Negative Negative [facility] 02/09/2016 9:53 PM SOLAR SALES REPRESENTATIVE AND ASSESSOR 02/09/2016 9:53 PM SOLAR SALES REPRESENTATIVE AND ASSESSOR us Martín Woods M.D., M.P.H. LAB MICROBIOLOGY - BLOOD ORDERABLES Final Result [facility] [address] [place] [address], [facility] from Last 3 Months or Most Recently Relevant to Health Maintenance Insurance [employer] Care Teams Kick Boxer Relationship Specialty Start Date End Date None Reported, Pcp PCP - General Family Medicine 10/09/22
--- OUTSIDE RECORDS SUMMARY | 2024-02-14 08:35 | XMS_ITS | Clinical Summary ---
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; Bilobate placenta, third trimester 12/07/2023 10:15 AM CDT - 12/07/2023 11:59 PM CDT Hospital Encounter [facility] Maternal Medicine [facility] [address] [facility] [address] [place] [address] Danette Sage MD Sabol, Bethany, MD related condition, antepartum Discharge Disposition: Home or Self Care 12/07/2023 Travel 11/29/2023 PRE VISIT [facility] Medicine [facility] [address] [facility] [address] [place] [address] Paulina Guardado RN Ultrasound (L2- Malformation of placenta, AMA) 11/25/2023 Medical Correspondence [facility] Information Management [address] [place] [address] [address] [place] [address] Scan, Non-Provider 11/25/2023 Transcribe Orders [facility] Maternal Medicine [facility] [address] [place] [address] Danette Sage MD related condition, antepartum (Primary Dx) 11/25/2023 Transcribe Orders [facility] Maternal Medicine [facility] [address] [place] [address] Danette Sage MD related condition, antepartum (Primary Dx) 11/24/2023 Medical Correspondence [facility] Information Management [address] [facility] [address] [place] [address] Scan, Non-Provider from Last 3 Months Social History Tobacco Use Types Packs/Day Years Used Date Smoking Tobacco: Never Assessed Adolescent Education Answer Date Record ed Getting School Help Needed Not on file 12/12 Estimated Date of Delivery Comme nts Yes 02/21/2024 Based on Ultraso und Sex and Gender Information Value Date Recorded Sex Assigned at Not on file 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 NO: [id number] Referring MD: DANETTE BEATTY Site: Otologist: Sherry Pimentel RDMS : 1985 Age: 37 [...] 3 lb 13 oz EFW by Hadlock ([id number]) Head / Face / Neck Biometry: Office Machine Servicer Apprentice 5.8 mm CM 6.0 mm Nasal bone 8.9 mm ANATOMY ----- The following structures appear normal: Head / Neck Cranium. Head size. Head shape. Lateral ventricles. Choroid plexus. Midline falx. Cavum septi pellucidi. Cerebellum. Cisterna magna. Parenchyma. Thalami. Vermis. Neck. Face Lips. Profile. Nose. Maxilla. Mandible. Orbits. Lens. Heart / Thorax 4-chamber view. RVOT view. LVOT view. 3-vessel view. 1-jtnrcb-xyeozmg view. Situs. Aortic arch view. Bicaval view. [...] medical record, and communicating with other health pulmonary care nurse and/or care coordination. Please see note for details. Procedure Note Karuna Mata MD - 12/07/2023 Comprehensive ----- Pat. Name: ADRIÁN RAND Study Date: 12/07/2023 10:20am Pat. NO: [id number] Referring MD: DANETTE BEATTY Site: Otologist: Sherry Pimentel RDMS : 1985 Age: 37 [...] EFW (lb,oz) 3 lb 13oz EFW by Yumiko([id number]) Head / Face / Neck Biometry: Office Machine Servicer Apprentice 5.8mm CM 6.0mm Nasal bone 8.9mm ANATOMY ----- The following structures appear normal: Head / Neck Cranium. Head size. Head shape.Lateral ventricles. Choroid plexus. Midline falx. Cavum septi pellucidi.Cerebellum. Cisterna magna. Parenchyma. Thalami. Vermis. Neck. Face Lips. Profile. Nose. Maxilla.Mandible. Orbits. Lens. Heart / Thorax 4-chamber view. RVOT view. LVOT view.3-vessel view. 6-wpqvwc-ntswcvs view. Situs. Aortic arch view. Bicavalview. Ductal [...] electronic medical record, andcommunicating with other health pulmonary care nurse and/or carecoordination. Please see note [...] of the placenta. us Danette Beatty MD [facility] ORDERABLE S Edited Result - Final from Last 3 Months Insurance [employer] Care Teams Boiler Water Tester Relationship Specialty Start Date End Date No Ref-Primary, Physician PCP - General 11/25/23 Karuna Mata MD [address] [address] [place] [address] Assigned OBGYN Provider 01/04/24
--- OUTSIDE RECORDS SUMMARY | 2024-02-14 08:35 | XMS_ITS ---
Author Organization [facility] Address [address] [place] [address] Care Team Providers Care Agricultural Sales Representative Name Role Phone Unavailable Unavailable Unavailable Surgery Details Not on file Complications Check Surgery Details section. Procedure Estimated Blood Loss Check Surgery Details section. Procedure Findings Check Surgery Details section. Procedure Specimens Taken Check Surgery Details section.
--- OUTSIDE RECORDS SUMMARY | 2024-02-14 08:35 | XMS_ITS | Encounter Summary ---
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
--- OUTSIDE RECORDS SUMMARY | 2024-02-14 08:35 | XMS_ITS | Encounter Summary ---
Author Organization [place] Address [address] [place] [address] Care Team Providers Care Loom Fixer Helper Name Role Phone No Ref-Primary, Physician Primary Care Provider Encounter Details Date Type Department Care Team (Late st Contact Info) Description 11/24/2023 Medical Correspondence [facility] Health Information Management [address] [place] [address] [address] [place] [address] Scan, Non-Provider Social History Tobacco Use Types Packs/Day Years Used Date Smoking Tobacco: Never Assessed Adolescent Education Answer Date Record ed Getting School Help Needed Not on file 12/12 Comments No Sex and Gender Information Value Date Recorded Sex Assigned at Not on file Legal 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
--- OUTSIDE RECORDS SUMMARY | 2024-02-14 08:35 | XMS_ITS | Clinical Summary ---
Author Organization [facility] Address [address] [place] [address] Care Team Providers Care Sumac Tanner Name Role Phone None Reported, Pcp Primary Care Provider Unavail able Source Comments Patient records contain information from all sites at [facility]. For routine questions regarding patient records, call [phone] during business hours, M-F 8:00 AM - 5:00 PM Central Time. Record requests for emergency care only can be directed to [phone] at any time.[facility] Allergies No known active allergies Medications 25/iron [...] = 0.6 oz pur e alcohol) WEEKLY [facility] Utilities Answer Date Recorded In the past 12 months has e [employer], gas, oil, or water [employer] threatened to shut off services in your [...] often do you attend chur ch or faith services? 1 to 4 times per year 07/11/2021 Do you belong to any clubs o r organizations such as gnosticism groups, unions, fraternal or athletic groups, or [...] and heating? Not hard at all 07/11/2021 [facility] [place] of Occupat ional Health - Occupational Stress [...] PM CDT Legal Sex Female 2:11 AM DIETITIAN TEACHER Gender Identity Female 07/11/2021 7:48 PM CDT [...] PT SOURCE, B Routine 02/09/2016 9:53 PM DIETITIAN TEACHER from Last 3 Months or Most Recently Relevant to Health Maintenance Results * HIV-1/HIV-2 Ab Rapid (02/09/2016 9:53 PM DIETITIAN TEACHER) HIV-1/HIV-2 Ab Rapid, P Negative Negative [facility] 02/09/2016 9:53 PM DIETITIAN TEACHER 02/09/2016 9:53 PM DIETITIAN TEACHER us Martín Woods M.D., M.P.H. LAB MICROBIOLOGY - BLOOD ORDERABLES Final Result [facility] [address] [place] [address], [facility] from Last 3 Months or Most Recently Relevant to Health Maintenance Insurance [employer] Care Teams Sumac Tanner Relationship Specialty Start Date End Date None Reported, Pcp PCP - General Family Medicine 10/09/22
--- OUTSIDE RECORDS SUMMARY | 2024-02-14 08:35 | XMS_ITS | Encounter Summary ---
Author Organization [place] Address [address] [place] [address] Care Team Providers Care Business Liaison Officer Name Role Phone No Ref-Primary, Physician Primary Care Provider Reason for Referral * Diagnostic Imaging Ultrasound (Routine) - Pending Review Specialty Diagnoses / Procedures Referred By Contac t Referred To Contact Radiology. Diagnoses related condition, antepartum Procedures [facility] US Comprehensive Single Danette Beatty MD [address] [place] [address] Phone: tel: fax: Referral ID Status Reason Start Date Expiration Date V isits Requested Visits Authorized [id number] Pending Review 11/25/2023 11/24/2024 1 1 Encounter Details Date Type Department Care Team (Latest Contact Info) Description 11/25/2023 Transcribe Orders [facility] [place] [address] [address] [facility] [address] [place] [address] Danette Beatty MD [address] [place] [address] related condition, antepartum (Primary Dx) Social History Tobacco Use Types Packs/Day Years Used Date Smoking Tobacco: Never Assessed Adolescent Education Answer Date Record ed Getting School Help Needed Not on file 12/12 Comments No Sex and Gender Information Value Date Recorded Sex Assigned at Not on file Legal Sex Female 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 NO: [id number] Referring MD: DANETTE BEATTY Site: Line Patroller: Sherry Pimentel RDMS : 1985 Age: 37 [...] 3 lb 13 oz EFW by Hadlock ([id number]) Head / Face / Neck Biometry: Rn Emergency Room 5.8 mm CM 6.0 mm Nasal bone 8.9 mm ANATOMY ----- The following structures appear normal: Head / Neck Cranium. Head size. Head shape. Lateral ventricles. Choroid plexus. Midline falx. Cavum septi pellucidi. Cerebellum. Cisterna magna. Parenchyma. Thalami. Vermis. Neck. Face Lips. Profile. Nose. Maxilla. Mandible. Orbits. Lens. Heart / Thorax 4-chamber view. RVOT view. LVOT view. 3-vessel view. 0-zayxxv-cfhdbqp view. Situs. Aortic arch view. Bicaval view. [...] record, and communicating with other health healthcare associate and/or care coordination. Please see note for details. Procedure Note Karuna Mata MD - 12/07/2023 Comprehensive ----- Pat. Name: ADRIÁN RAND Study Date: 12/07/2023 10:20am Pat. NO: [id number] Referring MD: DANETTE BEATTY Site: Line Patroller: Sherry Pimentel RDMS : 1985 Age: 37 [...] EFW (lb,oz) 3 lb 13oz EFW by Hadlock([id number]) Head / Face / Neck Biometry: Rn Emergency Room 5.8mm CM 6.0mm Nasal bone 8.9mm ANATOMY ----- The following structures appear normal: Head / Neck Cranium. Head size. Head shape.Lateral ventricles. Choroid plexus. Midline falx. Cavum septi pellucidi.Cerebellum. Cisterna magna. Parenchyma. Thalami. Vermis. Neck. Face Lips. Profile. Nose. Maxilla.Mandible. Orbits. Lens. Heart / Thorax 4-chamber view. RVOT view. LVOT view.3-vessel view. 0-cahhkm-flvwqel view. Situs. Aortic arch view. Bicavalview. Ductal [...] medical record, andcommunicating with other health healthcare associate and/or carecoordination. Please see note for [...] of the placenta. us Danette Beatty MD [facility] ORDERABLE S Edited Result - Final documented in this encounter Visit Diagnoses Diagnosis related condition, antepartum- Primary related condition, antepartum documented in this encounter Care Teams Business Liaison Officer Relationship Specialty Start Date End Date No Ref-Primary, Physician PCP - General 11/25/23 documented as of this encounter
--- OUTSIDE RECORDS SUMMARY | 2024-02-14 08:35 | XMS_ITS | Encounter Summary ---
Author Organization [place] Address [address] [place] [address] Care Team Providers Care Aeroplane Pilot Name Role Phone No Ref-Primary, Physician Primary Care Provider Reason for Referral * Diagnostic Imaging Ultrasound (Routine) - Pending Review Specialty Diagnoses / Procedures Referred By Marquiseac t Referred To Contact Radiology. Diagnoses related condition, antepartum Procedures [facility] US Comprehensive Single Danette Beatty MD [address] [place] [address] Phone: tel: fax: Referral ID Status Reason Start Date Expiration Date V isits Requested Visits Authorized [id number] Pending Review 11/25/2023 11/24/2024 1 1 Reason for Visit * Diagnostic Imaging Ultrasound (Routine) - Pending Review Specialty Diagnoses / Procedures Referred By Marquiseac t Referred To Contact Radiology. Diagnoses related condition, antepartum Procedures [facility] US Comprehensive Single Danette Beatty MD [address] [place] [address] Phone: tel: fax: Referral ID Status Reason Start Date Expiration Date V isits Requested Visits Authorized [id number] Pending Review 11/25/2023 11/24/2024 1 1 Encounter Details Date Type Department Care Team (Latest Contact Info) Description 12/07/2023 10:15 AM CDT - 12/07/2023 11:59 PM CDT Hospital Encounter [facility] Maternal Medicine [facility] [address] [place] [address] Danette Beatty MD [address] [place] [address] Karuna Mata MD [address] [place] [address] related condition, antepartum Discharge Disposition: [...] on file Legal 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 NO: [id number] Referring MD: DANETTE BEATTY Site: [employer] Bpm Consultant: Sherry Pimentel RDMS : 1985 Age: [...] 3 lb 13 oz EFW by Hadlock ([id number]) Head / Face / Neck Biometry: Supply Chain Development Manager 5.8 mm CM 6.0 mm Nasal bone 8.9 mm ANATOMY ----- The following structures appear normal: Head / Neck Cranium. Head size. Head shape. Lateral ventricles. Choroid plexus. Midline falx. Cavum septi pellucidi. Cerebellum. Cisterna magna. Parenchyma. Thalami. Vermis. Neck. Face Lips. Profile. Nose. Maxilla. Mandible. Orbits. Lens. Heart / Thorax 4-chamber view. RVOT view. LVOT view. 3-vessel view. 7-wpsrcj-tbwiktk view. Situs. Aortic arch view. Bicaval view. [...] medical record, and communicating with other health certified social workers in health care and/or care coordination. Please see note for details. Procedure Note Karuna Mata MD - 12/07/2023 Comprehensive ----- Pat. Name: ADRIÁN RAND Study Date: 12/07/2023 10:20am Pat. NO: [id number] Referring MD: DANETTE BEATTY Site: [employer] Bpm Consultant: Sherry PimentelLUISA : 1985 Age: 37 [...] EFW (lb,oz) 3 lb 13oz EFW by Hadlock([id number]) Head / Face / Neck Biometry: Supply Chain Development Manager 5.8mm CM 6.0mm Nasal bone 8.9mm ANATOMY ----- The following structures appear normal: Head / Neck Cranium. Head size. Head shape.Lateral ventricles. Choroid plexus. Midline falx. Cavum septi pellucidi.Cerebellum. Cisterna magna. Parenchyma. Thalami. Vermis. Neck. Face Lips. Profile. Nose. Maxilla.Mandible. Orbits. Lens. Heart / Thorax 4-chamber view. RVOT view. LVOT view.3-vessel view. 4-kqbsey-hmuwaia view. Situs. Aortic arch view. Bicavalview. Ductal [...] electronic medical record, andcommunicating with other health certified social workers in health care and/or carecoordination. Please see note for [...] the placenta. Danette Beatty MD [facility] ORDERABLE S Edited Result - Final documented in this encounter Visit Diagnoses Diagnosis related condition, antepartum documented in this encounter Care Teams Aeroplane Pilot Relationship Specialty Start Date End Date No Ref-Primary, Physician PCP - General 11/25/23 documented as of this encounter
--- OUTSIDE RECORDS SUMMARY | 2024-02-14 08:35 | XMS_ITS | Encounter Summary ---
Author Organization [place] Address [address] [place] [address] Care Team Providers Care Dynamite Cartridge Crimper Name Role Phone No Ref-Primary, Physician Primary Care Provider Reason for Referral * Consultation (Routine: Next available opening) - Pending Review Specialty Diagnoses / Procedures Referred By Asael gordon Referred To Contact Diagnoses related condition, antepartum Danette Rivera MD [address] [place] [address] Phone: tel: fax: [facility] [place] [address] [place] [address] Phone: tel: fax: Referral ID Status Reason Start Date Expiration Date V isits Requested Visits Authorized [id number] Pending Review 11/25/2023 11/24/2024 1 1 Question Answer Preferred Location: [facility] [place] 02/18/2024 Ultrasound Comprehensive US (>than 18 [...] No fax [facility] - Danette Rivera - [phone] Comments There is no height or weight [...] (Latest Contact Info) Description 11/25/2023 Transcribe Orders [facility] [place] [address] [place] [address] Danette Rivera MD [address] [place] [address] related condition, antepartum (Primary Dx) Social History Tobacco Use Types Packs/Day Years Used Date Smoking Tobacco: Never Assessed Adolescent Education Answer Date Record ed Getting School Help Needed Not on file 12/12 Comments No Sex and Gender Information Value Date Recorded Sex Assigned at Not on file Legal 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
--- NOTE | 2024-02-14 09:06 | W.ANESCHARGE ---
Anesthesia Charges Start Date/Time Anesthesia Start Date: 02/14/24 Anesthesia Start Time: 07:20 Stop Date/Time Anesthesia Stop Date: 02/14/24 Anesthesia Stop Time: 09:02
--- NOTE | 2024-02-14 09:11 | P.NB_ITS ---
Nerve Block Nerve Block Time Seen by Provider: 08:33 Date Seen: 02/14/24 Type of block requested by surgeon for post-operative analgesia: TAP Side: bilateral Time out performed: Yes Verification of patient name: Yes Verification of date of : Yes Site marking: site marked Name of person performing procedure: Wood Continuous monitoring Was continuous monitoring of O2 sat, B/P, technical project lead, recorded every 15 minutes?: Yes Procedure Checklist: sterile prep, needles and gloves Ultrasound guided. Images saved: Yes Medications given in 5ml increments after negative aspiration: Marcaine %: 0.25 mL: 30 Needle gauge: 20 and Exparel mL: 10 Patient tolerated procedure well: Yes Additional comments: Needle noted between internal oblique and transversus abdominus. Local spread visualized Block Charges Block Charge (with Pro Fee): TAP Bilateral Use of Ultrasound Machine for Block: Yes- US Guidance/pain block
--- NOTE | 2024-02-14 09:11 | W.ANESCHARGE ---
Anesthesia Charges Start Date/Time Anesthesia Start Date: 02/14/24 Anesthesia Start Time: 07:20 Stop Date/Time Anesthesia Stop Date: 02/14/24 Anesthesia Stop Time: 09:02
[2024-02-14] MEDS: LACTATED RINGERS 1000 ML 1,000 ML 125 ML IV (11:29)
[2024-02-14] MEDS: KETOROLAC 30 MG/ML inj IVP ×2 (14:18→20:37)
[2024-02-14] MEDS: ACETAMINOPHEN 500 MG TABLET 1000 MG PO ×2 (16:00→23:53)
[2024-02-14] MEDS: SIMETHICONE 80 MG TAB.CHEW PO (20:36)
[2024-02-15] VITALS (10 sets, daily range): BP systolic 96–103; BP diastolic 59–63; PULSE 65–70; RESP 16–18; TEMP 36.6; O2SAT 98
[2024-02-15] MEDS: KETOROLAC 30 MG/ML inj IVP ×2 (02:42→08:19)
[2024-02-15 07:17] LABS: Hemoglobin* 10.1 gm/dL (12.0-16.0)
[2024-02-15] MEDS: ACETAMINOPHEN 500 MG TABLET 1000 MG PO (07:46)
--- NOTE | 2024-02-15 09:44 | P.DS_ITS ---
DS: Providers Provider Date Seen: 02/15/24 Date of admission: 02/14/24 05:39 Primary care physician: Letty Fish CNP Admitting Clinician: Danette Rivera MD Attending Physician on discharge: Tejal Beal CNM DS: Diagnosis Discharge Diagnosis (1) Status post delivery: Status: Acute (2) Lactating mother: Status: Acute (3) Anemia due to acute blood loss: Status: Acute Exam Narrative: Exam Narrative: GENERAL APPEARANCE:? normal affect, alert, no distress MOOD:? appropriate CHEST:? clear to auscultation HEART:? regular rate and rhythm ABDOMEN:? soft, non-tender the uterine fundus is At Umbilicus, Midline and is appropriate for the stage of recovery. EXTREMITIES:? normal and no edema INCISION: Healing well, no surrounding erythema, abnormal induration or discharge. Ecchymosis present below incision. Const: Vital Signs, click to edit/add: Vital Signs - 24 hr 02/14/24 09:50 02/14/24 10:05 02/14/24 10:10 Temperature Pulse Rate [Pulse Oximeter] 67 58 L Respiratory Rate 18 18 18 Blood Pressure [Le ft Arm] 110/69 104/40 L Pulse Oximetry 98 98 Oxygen Delivery Me thod 02/14/24 10:20 02/14/24 10:35 02/14/24 10:50 Temperature 98.2 F 98.2 F Pulse Rate [Pulse Oximeter] 56 L 64 68 Respiratory Rate 18 18 18 Blood Pressure [Le ft Arm] 110/65 113/68 116/64 Pulse Oximetry 98 98 98 Oxygen Delivery Me thod 02/14/24 11:05 02/14/24 11:08 02/14/24 11:20 Temperature Pulse Rate [Pulse Oximeter] 69 65 Respiratory Rate 18 18 18 Blood Pressure [Le ft Arm] 116/64 103/63 Pulse Oximetry 98 98 Oxygen Delivery Me thod 02/14/24 11:35 02/14/24 12:54 02/14/24 13:07 Temperature 98.0 F Pulse Rate [Pulse Oximeter] 65 Respiratory Rate 18 18 18 Blood Pressure [Le ft Arm] 106/58 L Pulse Oximetry 98 Oxygen Delivery Me thod 02/14/24 15:31 02/14/24 16:04 02/14/24 16:09 Temperature 98.0 F Pulse Rate [Pulse Oximeter] 76 Respiratory Rate 16 18 16 Blood Pressure [Le ft Arm] 111/70 Pulse Oximetry 97 Oxygen Delivery Me thod Room Air 02/14/24 17:19 02/14/24 18:07 02/14/24 19:07 Temperature Pulse Rate [Pulse Oximeter] Respiratory Rate 16 18 16 Blood Pressure [Le ft Arm] Pulse Oximetry Oxygen Delivery Me thod 02/14/24 20:07 02/14/24 20:30 02/14/24 21:07 Temperature 97.7 F Pulse Rate [Pulse Oximeter] 68 Respiratory Rate 16 16 16 Blood Pressure [Le ft Arm] 109/67 Pulse Oximetry 98 Oxygen Delivery Me thod Room Air 02/14/24 22:07 02/14/24 23:07 02/14/24 23:56 Temperature 98.0 F Pulse Rate [Pulse Oximeter] 65 Respiratory Rate 16 16 16 Blood Pressure [Le ft Arm] 117/88 Pulse Oximetry 98 Oxygen Delivery Me thod Room Air 02/15/24 00:07 02/15/24 01:07 02/15/24 02:07 Temperature Pulse Rate [Pulse Oximeter] Respiratory Rate 16 16 16 Blood Pressure [Le ft Arm] Pulse Oximetry Oxygen Delivery Me thod 02/15/24 03:07 02/15/24 04:05 02/15/24 04:07 Temperature 97.9 F Pulse Rate [Pulse Oximeter] 65 Respiratory Rate 16 16 16 Blood Pressure [Le ft Arm] 96/59 L Pulse Oximetry 98 Oxygen Delivery Me thod Room Air 02/15/24 05:07 02/15/24 06:07 02/15/24 07:47 Temperature Pulse Rate [Pulse Oximeter] 70 Respiratory Rate 16 16 18 Blood Pressure [Le ft Arm] 103/63 Pulse Oximetry 98 Oxygen Delivery Me thod Room Air Documenting provider has reviewed patient's vital signs: yes OB - DS: Summary Hospital Course Hospital Course: Ute is a 38 y.o. G 3 P 3 who was admitted to [facility] for primary c/s. ?She had a section that was uncomplicated. The patient feels well. ?The pain is well controlled with current medications. ?She has no new complaints. ?She is breast feeding and reports things are going well. the patient has done well.? Vitals have been stable.? She has remained afebrile.? Has a good appetite, is tolerating a general diet. ?She is voiding without difficulty.? She is passing gas and has not had a bowel movement.? She is ambulating and denies any dizziness.? Has small amount of rubra lochia. She strongly desires discharge home today. Problems: none plan: Discharge home with baby. Follow up in 2 weeks and 6 weeks. , may see if needed Hgb [pending]. [Iron supplement ordered orally every other day] [GHTN/Pre-E/Elevated BP diagnosed by elevated BP greater than 4 hours apart] [Labs WNL or stable with trending] [Discharge home with BP cuff if does not already have one] [Follow up in 3-5 days] [Call for signs/symptoms of preeclampsia] Peripartum Data Infant delivery method: Primary C/S; Non-Labored Procedures: Procedures Operation Date: 02/14/24 07:30 Actual Procedure Side Surgeon p primary Section, bilateral salpingectomy Bilateral Ute Gauthier MD complications: none [place] Gender: Male Infant Discharge Plan: Home Status at Discharge Functional status at discharge: independent ambulation Overall status at discharge: patient is progressing back to baseline Time Spent with Patient Time attestation: Total time spent providing and/or coordinating discharge services: Time spent: Less than 30 minutes Discharge Plan Discharge Disposition: Home, Self-Care Date of Admission: 02/14/24 05:39 Primary Care Provider: Letty Fish Condition: Stable Anticipated Discharge Date/Time: 02/15/24 12:00 Discharge Medications: New docusate sodium 100 mg Capsule 100 mg PO BID PRN (Reason: constipation) Qty: 60 0RF ibuprofen 600 mg Tablet 600 mg PO Q6H PRN (Reason: Pain) Qty: 60 0RF oxycodone 5 mg Tablet 5 - 10 mg PO Q4H PRN (Reason: Pain) Qty: 25 0RF acetaminophen 500 mg Tablet 1,000 mg PO Q6H PRN (Reason: Pain) Qty: 0 0RF Continued omeprazole 20 mg capsule,delayed release(DR/EC) 20 mg PO QDAY DHA 200 mg capsule 200 mg PO DAILY famotidine [Pepcid AC] 20 mg tablet 20 mg PO QDAY ferrous sulfate 324 mg (65 mg iron) tablet,delayed release (DR/EC) 324 mg PO Q OTHER DAY metoclopramide HCl 10 mg tablet 10 mg PO Q6H PRN (Reason: nausea and vomiting) Qty: 15 0RF Discharge Orders: Discharge Order (Routine); Ordered 02/15/24 Ordered By: Tejal Beal Patient Education: OB Over the Counter Medication Information, OB /Breast Feeding Additional Instructions: Discharge instructions were reviewed with the patient including signs and symptoms of infection and home going medications Lifting Restrictions: 20 pounds for 6 weeks No not submerge incision under water X 2 weeks? Nothing vaginally for 6 weeks: no tampons or intercourse Do not drive while taking narcotic pain medication(s) Off Work or School for 8 weeks 2-week visit: incision check, discuss feeding concerns, review control options and screen for anxiety/depression. 6-week visit for an annual exam. consultation services are available to all mothers and babies for the first year after delivery.? To make an appointment, please call [phone]. Activity Level: Activity as Tolerated Discharge Diet: Regular Follow Up Appointments: [facility] Group[facility]: [facility] Instructions
[2024-02-15] MEDS: OXYCODONE 5 MG TABLET PO (10:14)
[2024-02-16 00:25] LABS: Rapid Plasma Reagin (RPR) Non Reactive (Non Reactive)
== END 2024-02-15 13:30 | disposition home or self-care (01) | DRG 784 ==
PROVIDERS: Obstetrics & Gynecology; Admitting Provider Obstetrics & Gynecology; PCP Nurse Practitioner Family; Visit Provider Obstetrics & Gynecology
PROC: (CPT 59514; principal; 2024-02-14 07:15)
DX: O32.2XX0 Maternal care for transverse and oblique lie, not applicable or unspecified (principal); D62 Acute posthemorrhagic anemia; O43.123 Velamentous insertion of umbilical cord, third trimester; Z3A.39 39 weeks gestation of pregnancy; Z37.0 Single live birth; O43.193 Other malformation of placenta, third trimester; G43.109 Migraine with aura, not intractable, without status migrainosus; B00.1 Herpesviral vesicular dermatitis; K21.9 Gastro-esophageal reflux disease without esophagitis; O90.81 Anemia of the puerperium; G89.18 Other acute postprocedural pain; Z30.2 Encounter for sterilization; O40.3XX0 Polyhydramnios, third trimester, not applicable or unspecified
CPT/HCPCS: 01961; 36415; 64488; 76942; 85018; 86592; 86850; 86900; 86901; 88302; 88307; A9270; C9290; J0665; J0690; J1885; J2274; J2371; J2590; J3010; J7120

== ENCOUNTER 2024-03-05 11:17 | Outpatient (CLI) | payer OTHER, SELFPAY ==
--- NOTE | 2024-03-05 16:01 | W.PM.LAC.MC ---
Consult Note - Mom Date of Visit Date of visit: 03/05/24 Reason for consultation: Assistance Needed, Low Milk Supply (questioning) and Infant Weight Concern Visit Code: Visit Patient's Information Phone number: [phone] Para: 3 Allergies No Known Allergies Allergy (Verified 02/29/24 08:46) Mother's Medical History: Medical History (Updated 02/16/24 @ 00:00 by Background Daemon) Hepatitis C antibody test positive (2021) ?R76.8 - Other specified abnormal immunological findings in serum (ICD-10) Hyperlipidemia ?E78.5 - Hyperlipidemia, unspecified (ICD-10) Abnormal cervical Papanicolaou smear ?R87.619 - Unspecified abnormal cytological findings in specimens from cervix uteri (ICD-10) Delayed hemorrhage (12/07/19) ?O72.2 - Delayed and secondary hemorrhage (ICD-10) Work Plans: returns to work end of Apr 2024 Delivery Information Delivery type: Primary C/S; Non-Labored (breech position) Gestational Age: 39+5 Gestational Weight For Age: AGA Weight: 3.83 kg Discharge Weight: 3.588 kg Percentage weight loss: 6.4 Baby's Information Baby's Age at Visit: 20 days Baby's Provider or Clinic: [facility] Jaundice: No Past Experience Past Experience: Yes Current Frequency of Day Feedings: every 2-3 hours Frequency of Night Feedings: every 3 hours, some cluster feedings in the evening Both Breasts: Yes Suck: strong Latch: comfortable per mom Length of Time: 10-15 min Goals: 1 year Pumping Pumping: Yes Quantity Pumped: nothing up to 2 oz depending on when pumps after feeding; using a zomee Supplementing EBM Supplement: Yes (as needed for hunger cues, 1 oz at most) Formula Supplement: Yes (needed a few times in the last 4 days ) Baby Elimination Number of Wet Diapers a Day: ea feeding now Number of BM a Day: 3 big/day, lots of little, yellow/seedy Breast/Nipple Condition Breast Information: Breasts are symmetrical with rounded lower quadrants, intramammary distance is less than 1.5 inches. No erythema. Nipples are supple, everted prior to feeding. Breast changes during Breast Shape: Round Engorgement: No Maternal Nipple Condition - Left: Common Nipple Maternal Nipple Condition - Right: Common Nipple Sore Nipples: Yes (slight) Interventions for Sore Nipples: Lansinoh/Nipple Cream Baby Assessment Skin: Normal Tongue/frenulum: Normal/elastic Palate: Average Lips: Relaxed and Symmetrical Jaw Alignment: Symmetrical Mucosa: [place], moist Onsite Observation Pre-Feed weight: 3.794 kg (up 194 gms in 5 days; average 38gm/day) Post-Feed weight: 3.862 kg Milk Transferred (mL): 68 Position: Cross cradle Attachment/latch-on achieved: Easily Suck pattern: Suck burst and normal rest Swallow: Audible, consistent Behavior following feed: Alert, content Pre-Nursing Left Nipple: Within Normal Limits Pre-Nursing Right Nipple: Within Normal Limits Post-Nursing Left Nipple: Within Normal Limits Post-Nursing Right Nipple: Within Normal Limits Assessments/Interventions Assessments/Interventions: This is mom's 3rd child. 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 Offer both breasts ea feeding to increase intake. Mom notices her left breast makes less milk than her right; ok to start on her left 2x for every 1x on the right to try and increase supply on that side Discussed trying to pump 2-3 times a day, especially in the morning, to help increase her supply, then back off on pumping when she feels he is not needing supplement anymore Mom is not sure her Zomee pump is working well. She also has a Motif pump and an In Hand Guides Stride; recommend she try those to see if she gets more milk than with the Zomee. Consider offering a supplement of EBM, formula if needed, at night after 3-4 hours of cluster feeding when needed. Follow-Up Suggested follow up: Appointment in 1 week Time Spent Time spent with patient (min): 60 (time with patient and her ) Meds Home Medications and Allergies Home Medications ?Medication ?Instructions ?Recorded ?Confirmed ?Type docosahexaenoic acid 200 mg 200 mg PO DAILY 07/19/23 02/29/24 History capsule ( DHA) Allergies Allergy/AdvReac Type Severity Reaction Status Date / Time No Known Allergies Allergy Verified 02/29/24 08:46
== END 2024-03-05 11:18 | disposition home or self-care (01) ==
LOC: OB LAC 11:17
PROVIDERS: PCP Nurse Practitioner Family; Visit Provider Obstetrics & Gynecology
DX: Z39.1 Encounter for care and examination of lactating mother (principal)
CPT/HCPCS: G0463

== ENCOUNTER 2024-03-15 11:14 | Outpatient (CLI) | payer OTHER, SELFPAY ==
--- NOTE | 2024-03-15 13:14 | W.PM.LAC.MF ---
Follow-Up Note: Mom Date of visit Date of visit: 03/15/24 Reason for consultation: Low Milk Supply (questioning) and Weight Concern Visit Code: Visit Patient's Information Allergies No Known Allergies Allergy (Verified 02/29/24 08:46) Delivery Information Weight: 3.83 kg Last Weight: 3.794 kg Baby's Information Baby's name: Mark Baby's Age at Visit: 30 days Baby's Provider or Clinic: [facility] Current Frequency of Day Feedings: every 2-3 hours Frequency of Night Feedings: usually 4 hr stretches, went a 5 hr and then 4 hr stretch last night Both Breasts: Yes Suck: strong Latch: good per mom Length of Time: 10-15 min ea side Pumping Pumping: Yes (2x/day) Quantity Pumped: about 1oz Supplementing EBM Supplement: Yes (usually gets the milk mom has pumped during the day at some point) Formula Supplement: No Baby Elimination Number of Wet Diapers a Day: ea feeding Number of BM a Day: 3-4/day Onsite Observation Pre-feed weight: 3.958 kg (up 164gms in 10 days; average 16 gms/day) Post-Feed weight: 4.016 kg Milk Transferred (mL): 58 Pre-Nursing Left Nipple: Within Normal Limits Pre-Nursing Right Nipple: Within Normal Limits Post-Nursing Left Nipple: Within Normal Limits Post-Nursing Right Nipple: Within Normal Limits Assessments/Interventions Assessments/Interventions: Jesus Manuel transferred 58 ml of milk in what mom describes as a pretty typical feeding Discussed jesus manuel's caloric needs of approx 24 oz/day based on age and current weight Given amount of milk transferred, caloric needs and slowed weight gain - recommend mom increase pumping to at least 3 times/day, 4 if possible and give anything she gets back to baby to increase his strength and stamina Mom to consider galactogogues; she knows they are not FDA approved and may or may not help her milk supply but would like to try. Discussed formula needed if he acts hungry and she has no EBM available She is providing breast compression most of the feeding for Mark; recommend she allow him to nurse for 5-7 minutes and then do breast compression to help increase his suck strength vs making feedings too easy for him. Education provided: Asymmetric latch technique for wide/deep latch to increase milk, Transfer for baby and increase comfort for mom, Supply/demand nature of milk supply and Need for frequent stimulation/milk removal Follow-Up Recommend baby be seen by provider for:: weight check in 1-2 weeks Time Spent Time spent with patient (min): 60 Meds Home Medications and Allergies Home Medications ?Medication ?Instructions ?Recorded ?Confirmed ?Type docosahexaenoic acid 200 mg 200 mg PO DAILY 07/19/23 02/29/24 History capsule ( DHA) Allergies Allergy/AdvReac Type Severity Reaction Status Date / Time No Known Allergies Allergy Verified 02/29/24 08:46
== END 2024-03-15 11:15 | disposition home or self-care (01) ==
LOC: OB LAC 11:15
PROVIDERS: PCP Nurse Practitioner Family; Visit Provider Obstetrics & Gynecology
DX: Z39.1 Encounter for care and examination of lactating mother (principal)
CPT/HCPCS: G0463